=== PATIENT | female | born 1990 | race Caucasian/White ===

== ENCOUNTER 2018-08-01 11:40 | Emergency (ER) | payer SELFPAY ==
[2018-08-01 11:46] VITALS: BP 102/64; PULSE 71; RESP 20; TEMP 36.8; O2SAT 98
--- NOTE | 2018-08-01 12:42 | ED.GENADUL_ITS ---
Discharge Plan Disposition Patient Disposition: HOME Condition: Stable Discharge Details Chief Complaint: Nk/Back Pain Clinical Impression: Lumbar strain Primary Care Provider: NONE,NONE ED Provider: Loida Michelle Home Meds and New Rx's Prescriptions: No Action ibuprofen [Ibuprofen IB] 200 MG tablet 200 mg PO PRN PRNRF: 0 levonorgestrel [Mirena] 20 mcg/24 hr (5 years) Intrauterine Device 1 unit RF: 0 Medical Decision Making 28-year-old female presents with sudden onset of lower back pain after coughing prior to arrival. No cauda equina symptoms. No focal deficits on exam. Vitals within normal limits. Patient appears nontoxic and in no acute distress. She does appear uncomfortable with walking but otherwise has a normal gait. She has not taken anything for pain. test negative. Will give a dose of Toradol IM and Valium p.o. I discussed with patient that as she has no focal deficits, no cauda equina symptoms, and no fall directly onto her back, I do not see any indication for acute imaging at this time and she is agreeable. 1340 --patient feels better after meds and is requesting to go home. She is still complaining of some pain with movement. Will send home with 2 tabs of Valium. She is instructed to alternate ice and heat, take ibuprofen every 6 hours and alternate with Tylenol. She is requesting a work note for today. She was instructed to return with any worsening or new concerning symptoms. She is instructed to follow-up with her primary care doctor in 1 week. HPI General Mode of arrival: ambulatory . Date/Time Provider Initiated Documentation: 08/01/18 12:10 . Limitations to Documentation: no limitations . Information obtained by: patient . HPI Narrative: Patient is a 28-year-old female with previous history of lumbar disc herniation who presents for lower back pain that started after coughing once today. Patient states the pain is in her middle lower back and is worse with movement and walking. She denies leg pain, leg numbness, leg weakness, saddle anesthesia, urinary or fecal incontinence, or abdominal pain. She has not taken any medication for pain. Past medical history: Lumbar disc herniation Surgical history: None Social history: Vapor, occasional alcohol, occasional marijuana Medications: Mirena Allergies: None PCP: None LMP yesterday Related Data Home Medications Medication Instructions Recorded Confirmed ibuprofen [Ibuprofen IB] 200 mg PO PRN PRN 02/21/17 08/01/18 levonorgestrel [Mirena] 1 unit 08/01/18 Allergies Allergy/AdvReac Type Severity Reaction Status Date / Time No Known Allergies Allergy Unverified 08/01/18 11:48 General Stated Complaint: Nk/Back Pain KATYH: 3 Review of Systems Review of Systems All systems reviewed & are unremarkable except as noted in HPI and below PFSH Social History Smoking/Tobacco Use Status: Current every day Exam Const General: cooperative and healthy appearing Orientation: alert and awake [facility] Head: normal to inspection Ears: hearing grossly normal bilaterally and external ears normal General nose exam: external nose normal Face and sinus: normal facial exam Eyes General: appearance normal, both eyes and all related structures Eyelids: eyelids normal Neck Neck: normal visual inspection Chest Chest: normal inspection of the chest Resp Effort & Inspection: normal respiratory effort and able to speak in complete sentences Auscultation: clear to auscultation bilaterally Cardio Rate: regular rate Rhythm: regular rhythm GI Inspection: normal to inspection Palpation: soft, not firm, no guarding, no hepatosplenomegaly, no masses and nontender Auscultation: normal bowel sounds Back/Spine/Pelvis Back: no CVA tenderness Cervical Spine: No cervical spinal tenderness Thoracic/Lumbar Spine: No thoracic spinal tenderness and No lumbar spinal tenderness Skin General skin exam: no rashes or lesions noted Neuro General: alert and awake Cognition: normal cognition Speech: speech normal Gait: other Motor: muscle tone normal throughout and strength 5/5 throughout Sensory Exam: no sensory deficits noted DTR's: Rt Patellar: 1+, Lt Patellar: 1+, Rt Ankle: 1+ and Lt Ankle: 1+ Plantar Reflexes: Equivocal: bilateral Extrem General: normal to inspection, full ROM and normal capillary refill Other: Straight leg raise negative bilaterally. Bilateral DP/PT pulses intact Psych Appearance: grossly normal Mental Status: mental status grossly normal Speech and Movement: speech and movement normal Affect: normal affect Thought Process: normal Course Vital Signs Temperature 98.2 F 08/01/18 11:46 Pulse 71 08/01/18 11:46 Respiratory Rate 20 08/01/18 11:46 Blood Pressure 102/64 08/01/18 11:46 Pulse Oximetry 98 08/01/18 11:46 Temperature 98.2 F 08/01/18 11:46 Temperature Source Temporal Artery Scan 08/01/18 11:46 Pulse 71 08/01/18 11:46 Respiratory Rate 20 08/01/18 11:46 Respiratory Effort Non-Labored 08/01/18 11:48 Blood Pressure 102/64 08/01/18 11:46 Pulse Oximetry 98 08/01/18 11:46 Oxygen Delivery Method Room Air 08/01/18 11:46 Oxygen Flow Rate 0 08/01/18 11:46 Pain Level 10 08/01/18 11:48
[2018-08-01] MEDS: Ketorolac 60 MG/2 ML VIAL IM (12:59)
[2018-08-01] MEDS: Diazepam 5 MG TAB PO ×2 (12:59→13:51)
[2018-08-01 13:51] VITALS: BP 102/64; PULSE 71; RESP 20; TEMP 36.8; O2SAT 98
== END 2018-08-01 13:51 | disposition home or self-care (01) ==
PROVIDERS: Emergency Provider Physician Assistant
DX: S39.012A Strain of muscle, fascia and tendon of lower back, initial encounter (principal); X50.9XXA Other and unspecified overexertion or strenuous movements or postures, initial encounter
CPT/HCPCS: 81025; 96372; 99284; J1885

== ENCOUNTER 2018-08-03 13:56 | Emergency (ER) | payer SELFPAY ==
[2018-08-03 14:12] VITALS: BP 109/61; PULSE 66; RESP 14; TEMP 37; O2SAT 96
--- NOTE | 2018-08-03 14:53 | W.ED.GENAD ---
Discharge Plan Disposition Patient Disposition: HOME Condition: Improving Discharge Details Chief Complaint: Nk/Back Pain Clinical Impression: Lumbago Primary Care Provider: NONE,NONE ED Provider: Jean Mcneil Home Meds and New Rx's Prescriptions: New methocarbamol 500 mg tablet 500 - 1,000 mg PO Q6H PRN (Reason: Back pain or spasm) Qty: 14 RF: 0 prednisone 20 mg tablet 40 mg PO DAILY 5 Days Qty: 10 RF: 0 Continue acetaminophen [Tylenol Extra Strength] 500 mg Tablet 2,000 mg PO Q6H PRNRF: 0 ibuprofen [Ibuprofen IB] 200 MG tablet 200 mg PO PRN PRNRF: 0 levonorgestrel [Mirena] 20 mcg/24 hr (5 years) Intrauterine Device 1 unit RF: 0 Discharge Instructions Instructions: Low Back Strain (ED) Additional Instructions: Continue medications as you have been. Return tomorrow for 1pm MRI and then to be seen in the ED. Return sooner for any acute concerns. Prednisone as prescribed. Methocarbamol as needed. Medical Decision Making 28yof ambulatory to ED with persistent back pain since coughing on 08/01. She has question mild weakness but no objective findings on my exam. No fever, no drug use. DDx includes disc bulge, exacerbation of chronic lumbar pain. I have been able to obtain MRI for tomorrow. Discussed with patient and will treat with steroid burst and increased analgesia. She will return sooner prn. Consider PT referral if MRI negative. PMD planning in progress. HPI General Mode of arrival: ambulatory. Date/Time Provider Initiated Documentation: 08/03/18 14:45. Limitations to Documentation: no limitations. Information obtained by: patient. History of Present Illness described as moderate, Quality is described as aching, and is localized to the back. Patient started experiencing this day(s) and it has been constant. Rest improves symptom(s), Movement worsens symptoms . Patient notes no other symptoms.. HPI Narrative: Back pain since 08/01. Atraumatic. Ambulatory without weakness or numbness. Mini improved with Valium and NSAIDS. Denies fever, fall, injury. Related Data Home Medications Medication Instructions Recorded Confirmed ibuprofen [Ibuprofen IB] 200 mg PO PRN PRN 02/21/17 08/03/18 levonorgestrel [Mirena] 1 unit 08/01/18 acetaminophen [Tylenol Extra 2,000 mg PO Q6H PRN 08/03/18 08/03/18 Strength] methocarbamol 500 - 1,000 mg PO Q6H PRN #14 tab 08/03/18 prednisone 40 mg PO DAILY 5 Days #10 tab 08/03/18 Previous Rx's Medication Instructions Recorded methocarbamol 500 - 1,000 mg PO Q6H PRN #14 tab 08/03/18 prednisone 40 mg PO DAILY 5 Days #10 tab 08/03/18 Allergies Allergy/AdvReac Type Severity Reaction Status Date / Time No Known Allergies Allergy Unverified 08/03/18 14:17 General Stated Complaint: Nk/Back Pain KATHY: 4 Review of Systems Review of Systems 8 systems reviewed and otherwise neg [facility] Social History Smoking/Tobacco Use Status: Current every day Exam Const General: cooperative and comfortable Eyes General: appearance normal, both eyes and all related structures Conjunctivae: conjunctivae normal Chest Chest: normal palpation of entire chest wall and no tenderness Resp Effort & Inspection: normal respiratory effort and able to speak in complete sentences Cardio Rate: regular rate Rhythm: regular rhythm GI Palpation: soft and no hepatosplenomegaly Back/Spine/Pelvis Back: no CVA tenderness, No mass, No erythema, No warmth, No sacral edema and back tenderness (Lower midline tenderness without bony focality, step off. ) Neuro General: alert and oriented x3 Sensory Exam: no sensory deficits noted and other (normal sensation throughout including saddle distn' 1+ patella reflex bilateral. Motor 5/5, patient able to lift each leg independtly against gravity but liited by pain.) Course Vital Signs Temperature 37.0 C 08/03/18 14:12 Pulse 66 08/03/18 14:12 Respiratory Rate 14 08/03/18 14:12 Blood Pressure 109/61 08/03/18 14:12 Pulse Oximetry 96 08/03/18 14:12 Temperature 37.0 C 08/03/18 14:12 Temperature Source Temporal Artery Scan 08/03/18 14:12 Pulse 66 08/03/18 14:12 Respiratory Rate 14 08/03/18 14:12 Respiratory Effort Non-Labored 08/03/18 14:15 Blood Pressure 109/61 08/03/18 14:12 Pulse Oximetry 96 08/03/18 14:12 Oxygen Delivery Method Room Air 08/03/18 14:12 Oxygen Flow Rate 0 08/03/18 14:12 Pain Level 8 08/03/18 14:18
--- NOTE | 2018-08-03 14:57 | ED.GENADUL_ITS ---
Discharge Plan Disposition Patient Disposition: HOME Condition: Improving Discharge Details Chief Complaint: Nk/Back Pain Clinical Impression: Lumbago Primary Care Provider: NONE,NONE ED Provider: Jean Mcneil Home Meds and New Rx's Prescriptions: New methocarbamol 500 mg tablet 500 - 1,000 mg PO Q6H PRN (Reason: Back pain or spasm) Qty: 14 RF: 0 prednisone 20 mg tablet 40 mg PO DAILY 5 Days Qty: 10 RF: 0 Continue acetaminophen [Tylenol Extra Strength] 500 mg Tablet 2,000 mg PO Q6H PRNRF: 0 ibuprofen [Ibuprofen IB] 200 MG tablet 200 mg PO PRN PRNRF: 0 levonorgestrel [Mirena] 20 mcg/24 hr (5 years) Intrauterine Device 1 unit RF: 0 Discharge Instructions Instructions: Low Back Strain (ED) Additional Instructions: Continue medications as you have been. Return tomorrow for 1pm MRI and then to be seen in the ED. Return sooner for any acute concerns. Prednisone as prescribed. Methocarbamol as needed. Medical Decision Making 28yof ambulatory to ED with persistent back pain since coughing on 08/01. She has question mild weakness but no objective findings on my exam. No fever, no drug use. DDx includes disc bulge, exacerbation of chronic lumbar pain. I have been able to obtain MRI for tomorrow. Discussed with patient and will treat with steroid burst and increased analgesia. She will return sooner prn. Consider PT referral if MRI negative. PMD planning in progress. HPI General Mode of arrival: ambulatory . Date/Time Provider Initiated Documentation: 08/03/18 14:45 . Limitations to Documentation: no limitations . Information obtained by: patient . History of Present Illness described as moderate, Quality is described as aching, and is localized to the back. Patient started experiencing this day(s) and it has been constant. Rest improves symptom(s), Movement worsens symptoms . Patient notes no other symptoms.. HPI Narrative: Back pain since 08/01. Atraumatic. Ambulatory without weakness or numbness. Mini improved with Valium and NSAIDS. Denies fever, fall, injury. Related Data Home Medications Medication Instructions Recorded Confirmed ibuprofen [Ibuprofen IB] 200 mg PO PRN PRN 02/21/17 08/03/18 levonorgestrel [Mirena] 1 unit 08/01/18 acetaminophen [Tylenol Extra 2,000 mg PO Q6H PRN 08/03/18 08/03/18 Strength] methocarbamol 500 - 1,000 mg PO Q6H PRN #14 tab 08/03/18 prednisone 40 mg PO DAILY 5 Days #10 tab 08/03/18 Previous Rx's Medication Instructions Recorded methocarbamol 500 - 1,000 mg PO Q6H PRN #14 tab 08/03/18 prednisone 40 mg PO DAILY 5 Days #10 tab 08/03/18 Allergies Allergy/AdvReac Type Severity Reaction Status Date / Time No Known Allergies Allergy Unverified 08/03/18 14:17 General Stated Complaint: Nk/Back Pain KATHY: 4 Review of Systems Review of Systems 8 systems reviewed and otherwise neg [facility] Social History Smoking/Tobacco Use Status: Current every day Exam Const General: cooperative and comfortable Eyes General: appearance normal, both eyes and all related structures Conjunctivae: conjunctivae normal Chest Chest: normal palpation of entire chest wall and no tenderness Resp Effort & Inspection: normal respiratory effort and able to speak in complete sentences Cardio Rate: regular rate Rhythm: regular rhythm GI Palpation: soft and no hepatosplenomegaly Back/Spine/Pelvis Back: no CVA tenderness, No mass, No erythema, No warmth, No sacral edema and back tenderness (Lower midline tenderness without bony focality, step off. ) Neuro General: alert and oriented x3 Sensory Exam: no sensory deficits noted and other (normal sensation throughout including saddle distn' 1+ patella reflex bilateral. Motor 5/5, patient able to lift each leg independtly against gravity but liited by pain.) Course Vital Signs Temperature 37.0 C 08/03/18 14:12 Pulse 66 08/03/18 14:12 Respiratory Rate 14 08/03/18 14:12 Blood Pressure 109/61 08/03/18 14:12 Pulse Oximetry 96 08/03/18 14:12 Temperature 37.0 C 08/03/18 14:12 Temperature Source Temporal Artery Scan 08/03/18 14:12 Pulse 66 08/03/18 14:12 Respiratory Rate 14 08/03/18 14:12 Respiratory Effort Non-Labored 08/03/18 14:15 Blood Pressure 109/61 08/03/18 14:12 Pulse Oximetry 96 08/03/18 14:12 Oxygen Delivery Method Room Air 08/03/18 14:12 Oxygen Flow Rate 0 08/03/18 14:12 Pain Level 8 08/03/18 14:18
[2018-08-03] MEDS: Ketorolac 60 MG/2 ML VIAL IM (15:24)
[2018-08-03] MEDS: predniSONE 20 MG TAB 60 MG PO (15:24)
[2018-08-03 15:52] VITALS: BP 109/61; PULSE 66; RESP 14; TEMP 37; O2SAT 96
== END 2018-08-03 15:52 | disposition home or self-care (01) ==
PROVIDERS: Emergency Provider Emergency Medicine
DX: M54.5 Low back pain (principal)
CPT/HCPCS: 96372; 99284; 99283; J1885; J7512

== ENCOUNTER 2018-08-04 01:21 | Outpatient (CLI) | payer SELFPAY ==
--- NOTE | 2018-08-04 13:35 | DI.MRI_ITS ---
SYMPTOMS/DIAGNOSIS: WORSENING LOW BACK PAIN, WEAKNESS MRI OF THE LUMBAR SPINE: Routine noncontrast examination. Comparison CT scan is 02/21/17. The conus medullaris has a normal appearance and location. At L 5 - S 1 there is normal disc signal. No focal disc herniation, central spinal canal or neural foraminal stenosis is seen. At L 4 - 5 there is a small right paracentral annular tear. No nerve root compression is seen. No central spinal canal or neural foraminal stenosis is present. At L 3 - 4 there is disc desiccation there is a small central disc herniation. No nerve root compression is seen. There is very mild narrowing of the AP diameter of the spinal canal. No neural foraminal stenosis is seen. Mild degenerative endplate signal changes are present. At L 2 - 3 and L 1 - 2 there is normal disc signal. No focal disc herniation, central spinal canal or neural foraminal stenosis is seen at these levels. Apart from the degenerative endplate signal changes the marrow signal is within normal limits. No evidence of a soft tissue mass is appreciated. IMPRESSION: 1. Degenerative disc disease at L 3 - 4 with a small central disc herniation. No nerve root compression is seen. There is mild narrowing of the AP diameter of the spinal canal at this level. 2. Small right paracentral annular tear at L 4 - 5. No nerve root compression or central spinal canal stenosis is present. These findings were discussed with the emergency department on the date of the examination.
== END 2018-08-04 01:41 ==
PROVIDERS: Visit Provider Emergency Medicine
DX: M54.5 Low back pain (principal); R29.898 Other symptoms and signs involving the musculoskeletal system; M51.26 Other intervertebral disc displacement, lumbar region
CPT/HCPCS: 72148

== ENCOUNTER 2018-08-04 15:13 | Emergency (ER) | payer SELFPAY ==
[2018-08-04 15:30] VITALS: BP 117/67; PULSE 59; RESP 12; TEMP 36.7; O2SAT 100
--- NOTE | 2018-08-04 15:44 | W.ED.GENAD ---
Discharge Plan Disposition Patient Disposition: HOME Discharge Details Chief Complaint: Recheck Clinical Impression: Low back pain, Lumbar disc herniation, Annular disc tear ED Provider: Karlos Toure Home Meds and New Rx's Prescriptions: Continue acetaminophen [Tylenol Extra Strength] 500 mg Tablet 2,000 mg PO Q6H PRNRF: 0 methocarbamol 500 mg tablet 500 - 1,000 mg PO Q6H PRN (Reason: Back pain or spasm) Qty: 14 RF: 0 prednisone 20 mg tablet 40 mg PO DAILY 5 Days Qty: 10 RF: 0 ibuprofen [Ibuprofen IB] 200 MG tablet 200 mg PO PRN PRNRF: 0 levonorgestrel [Mirena] 20 mcg/24 hr (5 years) Intrauterine Device 1 unit RF: 0 Discharge Instructions Instructions: Lumbar Disc Herniation (ED) Additional Instructions: If pain persists over the next couple days, please follow-up with orthopedics. Please contact your primary care physician to arrange follow-up. Return to the ER for any worsening or new concerning symptoms. Referrals: Asher Shrestha MD [ [facility] STAFF PHYSICIAN] - Medical Decision Making 28-year-old female here with low back pain, seen here yesterday in the emergency department and discharged to have an outpatient MRI performed, returns for results. Patient has been taking medications as prescribe and notes that pain has improved with medications prescribed yesterday. She denies recurrence of any weakness or numbness. No bowel or bladder does feel Radiologist about the MRI and he notes degenerative disc disease at L3-4 with a small central disc herniation. No nerve root compression is seen. There is mild narrowing of the AP diameter of the spinal canal at this level. Small right paracentral annular tear at L4-5. No nerve root compression or central spinal stenosis is present. Results were conveyed to the patient. Discharge instructions provided yesterday were reviewed. Patient was specifically instructed to not do any heavy lifting, bed twist or perform any other activities that worsen her pain. Patient was instructed to continue taking medication as prescribed and to follow-up with payment specialist should pain persist over the next few days. HPI General Date/Time Provider Initiated Documentation: 08/04/18 15:28. HPI Narrative: Patient seen here in the emerge department yesterday for back pain. She was discharged home with plan for MRI today because MRI was not available yesterday after hours. She is here for follow-up of her MRI that was performed today. She does note that her pain has improved and she has no numbness or weakness or bowel or bladder dysfunction. Related Data Home Medications Medication Instructions Recorded Confirmed ibuprofen [Ibuprofen IB] 200 mg PO PRN PRN 02/21/17 08/03/18 levonorgestrel [Mirena] 1 unit 08/01/18 acetaminophen [Tylenol Extra 2,000 mg PO Q6H PRN 08/03/18 08/03/18 Strength] methocarbamol 500 - 1,000 mg PO Q6H PRN #14 tab 08/03/18 prednisone 40 mg PO DAILY 5 Days #10 tab 08/03/18 Previous Rx's Medication Instructions Recorded methocarbamol 500 - 1,000 mg PO Q6H PRN #14 tab 08/03/18 prednisone 40 mg PO DAILY 5 Days #10 tab 08/03/18 Allergies Allergy/AdvReac Type Severity Reaction Status Date / Time No Known Allergies Allergy Unverified 08/03/18 14:17 General Stated Complaint: Recheck KATHY: 4 Review of Systems Review of Systems See HPI Exam Const General: healthy appearing, comfortable and no acute distress Orientation: alert Course Vital Signs Temperature 36.7 C 08/04/18 15:30 Pulse 59 L 08/04/18 15:30 Respiratory Rate 12 08/04/18 15:30 Blood Pressure 117/67 08/04/18 15:30 Pulse Oximetry 100 08/04/18 15:30 Temperature 36.7 C 08/04/18 15:30 Temperature Source Temporal Artery Scan 08/04/18 15:30 Pulse 59 L 08/04/18 15:30 Respiratory Rate 12 08/04/18 15:30 Respiratory Effort Non-Labored 08/04/18 15:31 Blood Pressure 117/67 08/04/18 15:30 Pulse Oximetry 100 08/04/18 15:30 Pain Level 6 08/04/18 15:30
--- NOTE | 2018-08-04 15:48 | ED.GENADUL_ITS ---
Discharge Plan Disposition Patient Disposition: HOME Discharge Details Chief Complaint: Recheck Clinical Impression: Low back pain, Lumbar disc herniation, Annular disc tear ED Provider: Karlos Toure Home Meds and New Rx's Prescriptions: Continue acetaminophen [Tylenol Extra Strength] 500 mg Tablet 2,000 mg PO Q6H PRNRF: 0 methocarbamol 500 mg tablet 500 - 1,000 mg PO Q6H PRN (Reason: Back pain or spasm) Qty: 14 RF: 0 prednisone 20 mg tablet 40 mg PO DAILY 5 Days Qty: 10 RF: 0 ibuprofen [Ibuprofen IB] 200 MG tablet 200 mg PO PRN PRNRF: 0 levonorgestrel [Mirena] 20 mcg/24 hr (5 years) Intrauterine Device 1 unit RF: 0 Discharge Instructions Instructions: Lumbar Disc Herniation (ED) Additional Instructions: If pain persists over the next couple days, please follow-up with orthopedics. Please contact your primary care physician to arrange follow-up. Return to the ER for any worsening or new concerning symptoms. Referrals: Asher Shrestha MD [ [facility] STAFF PHYSICIAN] - Medical Decision Making 28-year-old female here with low back pain, seen here yesterday in the emergency department and discharged to have an outpatient MRI performed, returns for results. Patient has been taking medications as prescribe and notes that pain has improved with medications prescribed yesterday. She denies recurrence of any weakness or numbness. No bowel or bladder does feel Radiologist about the MRI and he notes degenerative disc disease at L3-4 with a small central disc herniation. No nerve root compression is seen. There is mild narrowing of the AP diameter of the spinal canal at this level. Small right paracentral annular tear at L4-5. No nerve root compression or central spinal stenosis is present. Results were conveyed to the patient. Discharge instructions provided yesterday were reviewed. Patient was specifically instructed to not do any heavy lifting, bed twist or perform any other activities that worsen her pain. Patient was instructed to continue taking medication as prescribed and to follow -up with personnel specialist should pain persist over the next few days. HPI General Date/Time Provider Initiated Documentation: 08/04/18 15:28 . HPI Narrative: Patient seen here in the emerge department yesterday for back pain. She was discharged home with plan for MRI today because MRI was not available yesterday after hours. She is here for follow-up of her MRI that was performed today. She does note that her pain has improved and she has no numbness or weakness or bowel or bladder dysfunction. Related Data Home Medications Medication Instructions Recorded Confirmed ibuprofen [Ibuprofen IB] 200 mg PO PRN PRN 02/21/17 08/03/18 levonorgestrel [Mirena] 1 unit 08/01/18 acetaminophen [Tylenol Extra 2,000 mg PO Q6H PRN 08/03/18 08/03/18 Strength] methocarbamol 500 - 1,000 mg PO Q6H PRN #14 tab 08/03/18 prednisone 40 mg PO DAILY 5 Days #10 tab 08/03/18 Previous Rx's Medication Instructions Recorded methocarbamol 500 - 1,000 mg PO Q6H PRN #14 tab 08/03/18 prednisone 40 mg PO DAILY 5 Days #10 tab 08/03/18 Allergies Allergy/AdvReac Type Severity Reaction Status Date / Time No Known Allergies Allergy Unverified 08/03/18 14:17 General Stated Complaint: Recheck KATHY: 4 Review of Systems Review of Systems See HPI Exam Const General: healthy appearing, comfortable and no acute distress Orientation: alert Course Vital Signs Temperature 36.7 C 08/04/18 15:30 Pulse 59 L 08/04/18 15:30 Respiratory Rate 12 08/04/18 15:30 Blood Pressure 117/67 08/04/18 15:30 Pulse Oximetry 100 08/04/18 15:30 Temperature 36.7 C 08/04/18 15:30 Temperature Source Temporal Artery Scan 08/04/18 15:30 Pulse 59 L 08/04/18 15:30 Respiratory Rate 12 08/04/18 15:30 Respiratory Effort Non-Labored 08/04/18 15:31 Blood Pressure 117/67 08/04/18 15:30 Pulse Oximetry 100 08/04/18 15:30 Pain Level 6 08/04/18 15:30
== END 2018-08-04 15:57 | disposition home or self-care (01) ==
LOC: ER 15:53
PROVIDERS: Emergency Provider Student in an Organized Health Care Education/Training Program
DX: M51.26 Other intervertebral disc displacement, lumbar region (principal); M51.36 Other intervertebral disc degeneration, lumbar region

== ENCOUNTER 2020-04-14 10:09 | Emergency (ER) | payer MEDICAID, SELFPAY ==
[2020-04-14 10:15] VITALS: BP 116/66; PULSE 73; RESP 16; TEMP 36.4; O2SAT 97
--- NOTE | 2020-04-14 10:21 | ED.GENADUL_ITS ---
Discharge Plan Disposition Patient Disposition: HOME Condition: Stable Discharge Details Chief Complaint: GenMedical Clinical Impression: Hemorrhoids Primary Care Provider: None,None ED Provider: Leonard Burgos Home Meds and New Rx's Prescriptions: New docusate sodium 100 mg tablet 100 mg PO BID Qty: 30 RF: 0 lidocaine 5 % ointment 1 applic TP TID PRN (Reason: pain) Qty: 30 RF: 0 Continued acetaminophen [Tylenol Extra Strength] 500 mg Tablet 2,000 mg PO Q6H PRNRF: 0 ibuprofen [Ibuprofen IB] 200 MG tablet 200 mg PO PRN PRNRF: 0 Discharge Instructions Instructions: Hemorrhoids (ED), Sitz Bath (DC) Additional Instructions: if you're still symptomatic after a week follow up with your primary care provider return to the emergency department for fevers, abdominal pain, vomit, or uncontrolled bleeding Stand Alone Forms: Work Release Medical Decision Making 30 yo female comes in with rectal pain for several days and pain with wiping and some blood on the toilet paper. No vomit, abdominal pain or fevers. Has no abdominal tenderness on exam. 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 Will have her start sitz baths, lidocaine topically and stool softeners. ADvised f/u with pcp if not better within a week and return precautions given Differential Diagnosis Differential Diagnosis: hemorrhoid, fissure HPI General Mode of arrival: ambulatory . Date/Time Provider Initiated Documentation: 04/14/20 10:10 . Limitations to Documentation: no limitations . Information obtained by: patient . History of Present Illness 30 year old F presents to the emergency department with the chief complaint of rectal pain, described as moderate, and it has been constant. No relieving factors improve symptom(s), No exacerbating factors reported . Patient did receive the following treatments prior to arrival, none Related Data Home Medications Medication Instructions Recorded Confirmed ibuprofen [Ibuprofen IB] 200 mg PO PRN PRN 02/21/17 04/14/20 acetaminophen [Tylenol Extra 2,000 mg PO Q6H PRN 08/03/18 04/14/20 Strength] docusate sodium 100 mg PO BID #30 tab 04/14/20 lidocaine 1 applic TP TID PRN #30 gm 04/14/20 Previous Rx's Medication Instructions Recorded docusate sodium 100 mg PO BID #30 tab 04/14/20 lidocaine 1 applic TP TID PRN #30 gm 04/14/20 Allergies Allergy/AdvReac Type Severity Reaction Status Date / Time No Known Allergies Allergy Unverified 04/14/20 10:19 General Stated Complaint: GenMedical KATHY: 3 Review of Systems All systems reviewed & are unremarkable except as noted in HPI and below Constitutional Constitutional: Denies chills, Denies fever(s) and Denies weakness Cardiovascular Cardiovascular: Denies chest pain and Denies dyspnea Respiratory Respiratory: Denies cough and Denies dyspnea Gastrointestinal Gastrointestinal: Denies abdominal pain, Denies nausea and Denies vomiting Musculoskeletal Musculoskeletal: Denies joint swelling Neurologic Neurologic: Denies weakness [facility] Social History Smoking/Tobacco Use Status: Current every day Tobacco Type: cigarettes Years smoked: 12 and e-cigarettes Alcohol Intake: current Alcohol Intake frequency: holidays/special occasions only Alcohol type: beer Drug use: Never Substance use type: marijuana Do you feel safe at home: Yes Do you feel safe in your relationship?: Yes Exam Const General: no acute distress Orientation: alert HENMT Head: normal to inspection Ears: external ears normal General nose exam: external nose normal Mouth: moist mucous membranes Eyes General: appearance normal, both eyes and all related structures Neck Neck: normal visual inspection Resp Effort & Inspection: normal respiratory effort and able to speak in complete sentences Cardio Rate: regular rate GI Palpation: soft and nontender Skin General skin exam: no rashes or lesions noted Neuro General: patient alert and patient oriented x3 Extrem General: normal to inspection Psych Mental Status: mental status grossly normal Course Vital Signs Vital signs: Vital Signs Temperature 36.4 C L 04/14/20 10:15 Pulse 73 04/14/20 10:15 Respiratory Rate 16 04/14/20 10:15 Blood Pressure 116/66 04/14/20 10:15 Pulse Oximetry 97 04/14/20 10:15 Temperature 36.4 C L 04/14/20 10:15 Temperature Source Tympanic 04/14/20 10:15 Pulse 73 04/14/20 10:15 Respiratory Rate 16 04/14/20 10:15 Respiratory Effort Non-Labored 04/14/20 10:17 Blood Pressure 116/66 04/14/20 10:15 Blood Pressure Position Sitting 04/14/20 10:15 Pulse Oximetry 97 04/14/20 10:15 Oxygen Delivery Method Room Air 04/14/20 10:15 Oxygen Flow Rate 0 04/14/20 10:15 Pain Level 10 04/14/20 10:15
[2020-04-14 10:28] VITALS: RESP 14
== END 2020-04-14 10:42 | disposition home or self-care (01) ==
PROVIDERS: Emergency Provider Emergency Medicine
DX: K64.4 Residual hemorrhoidal skin tags (principal)
CPT/HCPCS: 99283

== ENCOUNTER 2020-07-27 16:26 | Outpatient (CLI) | payer MEDICAID, SELFPAY ==
[2020-07-27 16:53] LABS: Abs Immature Grans 0.04 10^3/uL (0.0-0.06); Absolute Basophil Count 0.03 10^3/uL (0.0-0.2); Absolute Eosinophil Count 0.21 10^3/uL (0.0-0.7); Absolute Lymphocyte Count 2.83 10^3/uL (1.2-3.4); Absolute Neutrophil Count 7.28 10^3/uL (1.2-6.7); Basophils % 0.3; Eosinophils % 1.9; HCT 35.2 % (36.0-46.0); Immature Grans % 0.4; MCH 28.9 pg (27.0-33.0); MCHC 34.1 % (32.0-36.0); MCV 84.8 fL (80-95); MPV 10.8 fL (8.0-11.0); Neutrophils % 64.4; Nucleated RBC 0 %; Platelet Count 207 10^3/uL (130-400); RBC 4.15 10^6/uL (3.93-5.22); RDW 11.9 % (11.7-14.6); RDW-SD 36.5 fL
[2020-07-27 17:06] LABS: Glucose,1 Hr (Glucola) 91 mg/dL (80-140)
[2020-07-27 17:43] LABS: *AMPHETAMINES SCREEN URINE Negative (Negative); *BARBITURATES SCREEN URINE Negative (Negative); *BENZODIAZEPINES SCREEN URINE Negative (Negative); Cannabinoids THC POSITIVE (Negative); Cocaine Screen,Urine Negative (Negative); METHADONE URINE SCREEN Negative (Negative); OPIATES URINE SCREEN Negative (Negative)
[2020-07-27 17:50] LABS: Tricyclic Antidepressants Negative (Negative)
[2020-07-27 17:52] LABS: TSH (W/Ref FT4) 6.17 uIU/mL (0.36-3.74)
[2020-07-30 13:50] LABS: Syphilis Total Ab w/Reflex Nonreactive (Nonreactive)
[2020-07-31 10:31] LABS: Varicella IgG Antibody Positive (See Note)
[2020-07-31 10:32] LABS: Hepatitis B Surface Ag Negative (Negative)
[2020-07-31 10:34] LABS: Rubella IgG Ab (UVM) Positive (See Note)
[2020-07-31 11:10] LABS: HIV-1/2 Ag & Ab Screen Negative (Negative)
[2020-07-31 11:26] LABS: Hepatitis C Ab w Rflx HCV PCR Negative (Negative)
[2020-07-31 14:56] LABS: Chlamydia Result Negative (Negative); GC Result Negative (Negative)
[2020-08-03 11:59] LABS: Buprenorphine Negative; Norbuprenorphine Negative
[2020-08-04 15:57] LABS: Result Summary NEGATIVE; Specimen WB Whole Blood
== END 2020-07-27 16:46 ==
PROVIDERS: Visit Provider Advanced Practice Midwife
DX: Z34.91 Encounter for supervision of normal pregnancy, unspecified, first trimester (principal); Z11.4 Encounter for screening for human immunodeficiency virus [HIV]; Z11.59 Encounter for screening for other viral diseases; Z01.84 Encounter for antibody response examination; Z11.3 Encounter for screening for infections with a predominantly sexual mode of transmission
CPT/HCPCS: 36415; 80307; 82950; 86787; 86803; 86850; 86900; 86901; 87340; 87389; 87491; 87591; 81220; 84439; 84443; 85025; 86762; 86780; 87086

== ENCOUNTER 2020-07-31 01:22 | Outpatient (CLI) | payer MEDICAID, SELFPAY ==
[2020-07-31 14:40] LABS: Kit/Specimen SENT
== END 2020-07-31 01:42 ==
PROVIDERS: Visit Provider Advanced Practice Midwife
DX: Z34.91 Encounter for supervision of normal pregnancy, unspecified, first trimester (principal); Z36.89 Encounter for other specified antenatal screening

== ENCOUNTER 2020-09-18 01:29 | Outpatient (CLI) | payer MEDICAID, SELFPAY ==
--- NOTE | 2020-09-18 08:30 | DI.US_ITS ---
EXAM: US OB 2-3 TRIMESTER CLINICAL HISTORY: routine pnc,z34.90. TECHNIQUE: Transabdominal obstetrical ultrasound performed. COMPARISON: No exams were available for comparison FINDINGS: Transabdominal obstetrical ultrasound performed. FINDINGS: Number of fetuses: One. position: Breech heart rate: 150 bpm. Placental grade: 2 Placental location: Posterior. No evidence of previa. BIOMETRIC DATA: BPD: 45 millimeters, 19+ 4 weeks HC: 168 mm, 19+ 3 weeks AC: 143 mm, 19+ 4 weeks FL: 30 mm, 19+ 3 weeks Cerebellum: 1.9 cm EFW: 296 grams 75% Composite Age: 19+ 4 weeks EDC by US: 08 February 2021 Amniotic fluid index: Amount of fluid is within normal limits. ANATOMICAL SURVEY: Four-chambered heart: Unremarkable. LVOT: Unremarkable. RVOT: Unremarkable. Left-sided stomach: Unremarkable. urinary bladder: Unremarkable. Bilateral kidneys: Unremarkable. Three-vessel cord: Unremarkable. Cord insertion: Unremarkable. Umbilical artery velocity: Unremarkable. Posterior fossa:Unremarkable. ventricles: Unremarkable. nose: Unremarkable. lips: Unremarkable. palate: Unremarkable. spine: Unremarkable. Two arms and two legs: Unremarkable. IMPRESSION: 1. Single live intrauterine gestation as above. 2. Normal anatomic survey. DATA REPOSITORY:
== END 2020-09-18 01:49 ==
PROVIDERS: Visit Provider Advanced Practice Midwife
DX: Z34.92 Encounter for supervision of normal pregnancy, unspecified, second trimester (principal); Z3A.19 19 weeks gestation of pregnancy
CPT/HCPCS: 76805

== ENCOUNTER 2020-11-10 01:39 | Outpatient (CLI) | payer MEDICAID, SELFPAY ==
[2020-11-10 08:30] LABS: Glucose,1 Hr (Glucola) 215 mg/dL (80-140)
[2020-11-10 08:35] LABS: HCT 30.3 % (36.0-46.0); HGB 10.4 g/dL (11.2-15.7); MCH 29.3 pg (27.0-33.0); MCHC 34.3 % (32.0-36.0); MCV 85.4 fL (80-95); MPV 11.1 fL (8.0-11.0); Platelet Count 190 10^3/uL (130-400); RBC 3.55 10^6/uL (3.93-5.22); RDW 11.7 % (11.7-14.6); RDW-SD 36.5 fL; WBC 9.69 10^3/uL (4.4-10.8)
[2020-11-10 09:11] LABS: *AMPHETAMINES SCREEN URINE Negative (Negative); *BARBITURATES SCREEN URINE Negative (Negative); *BENZODIAZEPINES SCREEN URINE Negative (Negative); Cannabinoids THC POSITIVE (Negative); Cocaine Screen,Urine Negative (Negative); METHADONE URINE SCREEN Negative (Negative); OPIATES URINE SCREEN Negative (Negative); Tricyclic Antidepressants Negative (Negative)
[2020-11-10 09:22] LABS: TSH (W/Ref FT4) 1.83 uIU/mL (0.36-3.74)
[2020-11-10 10:50] LABS: Hemoglobin A1C 5.3 % (<5.7)
--- NOTE | 2020-11-13 10:04 | W.DIABETESNO ---
Date of service: 11/10/20 Time of Service: 09:00 Diabetes Note NOTE: Mare was referred for medical nutrition therapy for gestational diabetes. Mare is 26 weeks with a GCT today of 215 mg. Strong family hx of Dm2, elevated BMI pre . Met with Mare in [facility] and instructed her on how to do finger sticks using glucometer and placed a CGM(afia 14). Mare instructed to do finger sticks QID and to scan CGM QID. Will return 11/17/20 to evaluate data points. Also, educated Mare on optimal diet and life style changes to manage GDM, discussed risks of poorly controlled GDM and health benefits of eating healthy, being active life long to avoid Dm2 later in life. Time Spent in Nutritional Counseling and Treatment: 30 min
[2020-11-15 16:14] LABS: Buprenorphine Negative; Norbuprenorphine Negative
--- NOTE | 2020-11-17 13:50 | W.NUTRFU ---
Date of service: 11/17/20 Time of Service: 13:51 Nutritional Follow up NOTE: Met with Mare in [facility]. She is 27 weeks and has gained appropriately (+20 lbs). Has been using a continuous glucose monitor for last 7 days along with checking BS QID. BS finger stick record provided, along with data points from down load of reader. Both reports indicate well controlled GDM. In last 7 days her average glucose has been 96 mg/dl(70-170 mg/dl), with glucose variability of 17.8%. She has had no hyperglycemic events (>180 mg/dl) and has had 2 low glucose levels (54-69mg/dl)in late afternoon. Encouraged Mare to eat on a schedule and not to go more than 6 hours between meals. 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 Overall, Mare is managing her GDM with diet and lifestyle changes. Time Spent in Nutritional Counseling and Treatment: 15
== END 2020-11-10 01:59 ==
PROVIDERS: Advanced Practice Midwife; Visit Provider Advanced Practice Midwife
DX: O24.410 Gestational diabetes mellitus in pregnancy, diet controlled (principal); O99.282 Endocrine, nutritional and metabolic diseases complicating pregnancy, second trimester; O99.322 Drug use complicating pregnancy, second trimester; F12.90 Cannabis use, unspecified, uncomplicated; Z3A.27 27 weeks gestation of pregnancy
CPT/HCPCS: 80307; 82950; 85027; 83036; 84443

== ENCOUNTER 2020-11-17 18:53 | Outpatient (REF) | payer MEDICAID, SELFPAY ==
[2020-11-17 16:36] LABS: *AMPHETAMINES SCREEN URINE Negative (Negative); *BARBITURATES SCREEN URINE Negative (Negative); *BENZODIAZEPINES SCREEN URINE Negative (Negative); Cannabinoids THC POSITIVE (Negative); Cocaine Screen,Urine Negative (Negative); METHADONE URINE SCREEN Negative (Negative); OPIATES URINE SCREEN Negative (Negative)
[2020-11-17 17:04] LABS: Tricyclic Antidepressants Negative (Negative)
[2020-11-23 13:48] LABS: Buprenorphine Negative; Norbuprenorphine Negative
== END 2020-11-17 19:13 ==
LOC: LBN 18:53
PROVIDERS: PCP Nurse Practitioner; Visit Provider Advanced Practice Midwife
DX: O99.322 Drug use complicating pregnancy, second trimester; F12.90 Cannabis use, unspecified, uncomplicated
CPT/HCPCS: 80307

== ENCOUNTER 2020-11-23 03:10 | Outpatient (CLI) | payer MEDICAID, SELFPAY ==
[2020-11-23 16:01] LABS: HCT 32.2 % (36.0-46.0); HGB 10.7 g/dL (11.2-15.7); MCH 28.8 pg (27.0-33.0); MCHC 33.2 % (32.0-36.0); MCV 86.6 fL (80-95); MPV 11.6 fL (8.0-11.0); Platelet Count 202 10^3/uL (130-400); RBC 3.72 10^6/uL (3.93-5.22); RDW 11.8 % (11.7-14.6); RDW-SD 37.2 fL; WBC 12.43 10^3/uL (4.4-10.8)
== END 2020-11-23 03:30 ==
PROVIDERS: PCP Nurse Practitioner; Visit Provider Advanced Practice Midwife
DX: Z34.93 Encounter for supervision of normal pregnancy, unspecified, third trimester (principal); Z3A.28 28 weeks gestation of pregnancy
CPT/HCPCS: 36415; 85027

== ENCOUNTER 2020-11-24 00:52 | Outpatient (CLI) | payer MEDICAID, SELFPAY ==
--- NOTE | 2020-11-24 14:30 | NS.NUTBLAN_ITS ---
Mare was referred to medical nutrition therapy for education on how to inject insulin. Ordered NPH 6 units BID. Educated Mare how to mix NPH, how to insert air into bottle and how to draw up insulin and inject. Recently ordered to start insulin to manage GDM as was having elevated fasting BS > 95mg/dl. Reviewed optimal meal plan for glycemic control and encouraged Mare to inject insulin after meals. Encouraged Mare to have 50 carbs with protein at B, L, and D and not go longer than 6 hours between meals. Reviewed benefits of insulin to growing baby. Mare is instructed to check BS QID and to use CGM. Will need to replace sensor in 1 day, Mare will have partner do this for her. Mare plans to take insulin before work after breakfast and after dinner. Mare was receptive to information. Will continue to follow weekly.
== END 2020-11-24 01:12 ==
PROVIDERS: PCP Nurse Practitioner; Visit Provider Dietitian, Registered
DX: O24.414 Gestational diabetes mellitus in pregnancy, insulin controlled (principal); Z71.3 Dietary counseling and surveillance
CPT/HCPCS: 97803

== ENCOUNTER 2020-12-22 04:00 | Outpatient (CLI) | payer MEDICAID, SELFPAY ==
--- NOTE | 2020-12-22 08:27 | DI.US_ITS ---
EXAM: US OB LUISITO WEIGHT CLINICAL HISTORY: Elevated one hour at 215,? LGA INFANT,GEST DIABETES; modified to protocol. TECHNIQUE: Transabdominal obstetrical ultrasound performed. COMPARISON: US US OB 2-3 TRIMESTER from 09/18/2020 FINDINGS:: Number of fetuses: One. position: Vertex. Placental location: Posterior. No evidence of previa. Grade 2. BIOMETRIC DATA: BPD: 84mm = 33+ 6 weeks HC: 302mm = 33+4 weeks AC: 294mm = 33+3 weeks FL: 66 mm = 33+ 6 weeks EFW: 2226 grams Gms = 72 % Composite Age: 33+5 weeks EDC: 04 February 2021 Heart Rate: 155BPM Amniotic fluid index: 20.4 cm. Amount of fluid is at the upper limits of normal.. IMPRESSION: size and weight are within the high normal range. Borderline polyhydramnios. DATA REPOSITORY:
--- NOTE | 2020-12-22 14:10 | W.DIABETESNO ---
Date of service: 12/22/20 Time of Service: 14:11 Diabetes Note NOTE: Met with Mare today at [facility]. She is 33 weeks with GDM. Total weight gain of 30 lbs, no recent weight gain. Mare is using a continuous glucose monitor and checking blood sugars BID. Fasting sugars are starting to become elevated. Had 5 fasting sugars > 95mg/dl in last week. Dr. Jauregui recommended 3 u of novolog at HS. Per CGM, has been in target range 70% with glucose variability of 29%. Meal review indicates some high sugar items in last 2 weeks but mostly well balanced meals. Mare was provided with education on how to use her insulin pens and reported that she feels comfortable injecting 3 units of novolog at bedtime. Follow up appt. next week, Mare to continue to keep blood sugar log and utilize CGM to assist her in making meal choices. Will be available prn. Time Spent in Nutritional Counseling and Treatment: 10 minutes
== END 2020-12-22 04:20 ==
PROVIDERS: PCP Nurse Practitioner; Visit Provider Obstetrics & Gynecology
DX: O24.414 Gestational diabetes mellitus in pregnancy, insulin controlled (principal); O40.3XX0 Polyhydramnios, third trimester, not applicable or unspecified; Z3A.33 33 weeks gestation of pregnancy
CPT/HCPCS: 76816

== ENCOUNTER 2020-12-26 07:52 | Outpatient (CLI) | payer MEDICAID, SELFPAY ==
[2020-12-26 16:20] VITALS: BP 134/78; PULSE 101; TEMP 36.9
[2020-12-26 16:31] VITALS: BP 134/78; PULSE 101
[2020-12-26 17:07] VITALS: BP 134/78; PULSE 101; TEMP 36.9
--- NOTE | 2020-12-26 17:07 | W.OBNST ---
Date of service: 12/26/20 Time of Service: 17:07 NST Evaluation Reason for NST Reasons for Nonstress Test: GDM- PO MEDICATION Gestational Age Gestational Age in Weeks and Days: 33 Weeks and 1Days Test and Monitor Explained Test/Monitor Explained: Test Explained, Monitor Explained and Patient Verbalized Understanding Vital Signs Blood Pressure: 134/78 Pulse: 101 Temperature: 98.4 F Urine Results Urine Protein: Negative Urine Ketones: Negative Urine Glucose: Negative Urine Blood: Negative NST Information Date on Monitor: 12/26/20 Time on Monitor: 16:26 Date off Monitor: 12/26/20 Time off Monitor: 16:53 Total Time on Monitor: 27 NST Interventions: PO Hydration NST Evaluation Patient States Movement: Present FHR Baseline: 135 Variability: Moderate 6-25 bpm Accelerations: 15x15 Decelerations: None NST Results: Reactive Note NST Note Note: Category 1 strip. NST friday with OB visit NST Reviewed and Verified by: Savana Clancy
== END 2020-12-26 17:00 | disposition home or self-care (01) ==
LOC: BCD 08:03 → OBS 16:18
PROVIDERS: PCP Nurse Practitioner; Visit Provider Obstetrics & Gynecology
DX: O24.415 Gestational diabetes mellitus in pregnancy, controlled by oral hypoglycemic drugs (principal); Z79.84 Long term (current) use of oral hypoglycemic drugs; Z3A.33 33 weeks gestation of pregnancy
CPT/HCPCS: 59025

== ENCOUNTER 2020-12-29 07:46 | Outpatient (CLI) | payer MEDICAID, SELFPAY ==
[2020-12-29 09:54] VITALS: BP 130/84; PULSE 96
[2020-12-29 10:00] VITALS: TEMP 36.7
[2020-12-29 10:02] VITALS: BP 130/84; PULSE 96; TEMP 36.7
[2020-12-29 12:41] VITALS: BP 130/84; PULSE 96; TEMP 36.7
--- NOTE | 2020-12-29 12:41 | W.OBNST ---
Date of service: 12/29/20 Time of Service: 12:41 NST Evaluation Reason for NST Reasons for Nonstress Test: GDM- PO MEDICATION and GDM-INSULIN Gestational Age Gestational Age in Weeks and Days: 33 Weeks and 4Days Test and Monitor Explained Test/Monitor Explained: Test Explained, Monitor Explained and Patient Verbalized Understanding Vital Signs Blood Pressure: 130/84 Pulse: 96 Temperature: 98.1 F Urine Results Urine Protein: Negative Urine Ketones: Negative Urine Glucose: Negative Urine Blood: Negative NST Information Time on Monitor: 09:56 Date off Monitor: 12/29/20 Time off Monitor: 10:22 NST Interventions: PO Hydration Contraction Frequency: 0 NST Evaluation Patient States Movement: Present and Decreased FHR Baseline: 135 Variability: Moderate 6-25 bpm Accelerations: 15x15 Decelerations: None NST Results: Reactive Note NST Note Note: Mare is getting twice weekly NSTs for A2GDM. Reactive. NST Reviewed and Verified by: Kerry Ann
--- NOTE | 2020-12-29 13:17 | DIABASSESS_ITS ---
Date of service: 12/29/20 Time of Service: 13:17 Diabetes Note NOTE: Met with Mare on [facility]. She is 34 weeks with GDM. She reports taking her insulin (3 u novolog HS) only some nights when I remember. Encouraged Mare to take insulin every night as several of her fasting blood sugars are > 95mg/dl. Overall, her glycemic control is excellent with only a few glycemic excurtions above 140 mg/dl after meals. Reviewed dietary logs, continues to include high sugar items such as fruit juice, encouraged sugar free options and reviewed glycemic response to simple sugars. Ambulatory glucose profile indicates in target range (63-140 mg/dl) 77% of time with no blood sugars > 180mg/dl in last 14 days. Average glucose 84mg/dl, 24.8% glucose variability in last 14 days. Time Spent in Nutritional Counseling and Treatment: 20
== END 2020-12-29 10:25 | disposition home or self-care (01) ==
LOC: BCD 07:52 → OBS 09:51
PROVIDERS: PCP Nurse Practitioner; Visit Provider Obstetrics & Gynecology
DX: O24.414 Gestational diabetes mellitus in pregnancy, insulin controlled (principal); Z79.4 Long term (current) use of insulin; Z3A.33 33 weeks gestation of pregnancy
CPT/HCPCS: 59025

== ENCOUNTER 2021-01-02 07:24 | Outpatient (CLI) | payer MEDICAID, SELFPAY ==
[2021-01-02 17:01] VITALS: BP 135/79; PULSE 83
[2021-01-02 17:04] VITALS: BP 135/79; PULSE 81; TEMP 36.7
--- NOTE | 2021-01-02 20:07 | W.OBNST ---
Date of service: 01/02/21 Time of Service: 20:08 NST Evaluation Reason for NST Reasons for Nonstress Test: GDM-INSULIN Gestational Age Gestational Age in Weeks and Days: 34 Weeks and 1Days Test and Monitor Explained Test/Monitor Explained: Test Explained, Monitor Explained and Patient Verbalized Understanding Vital Signs Blood Pressure: 135/79 Pulse: 81 Temperature: 98.1 F Urine Results Urine Protein: Negative Urine Ketones: Negative Urine Glucose: Negative Urine Blood: Negative NST Information Date on Monitor: 01/02/21 Time on Monitor: 16:23 Date off Monitor: 01/02/21 Time off Monitor: 17:02 Total Time on Monitor: 39 NST Interventions: PO Hydration Contraction Frequency: 2-6 NST Evaluation Patient States Movement: Present FHR Baseline: 125 Variability: Moderate 6-25 bpm Accelerations: 15x15 Decelerations: None NST Results: Reactive Note NST Note Note: Pt will be seen in office later this week for routine visit. NST Reviewed and Verified by: Basia Lanza
[2021-01-02 20:08] VITALS: BP 135/79; PULSE 81; TEMP 36.7
== END 2021-01-02 17:05 | disposition home or self-care (01) ==
LOC: BCD 07:26 → OBS 16:43
PROVIDERS: PCP Nurse Practitioner; Visit Provider Obstetrics & Gynecology Gynecology
DX: O24.414 Gestational diabetes mellitus in pregnancy, insulin controlled (principal); Z3A.34 34 weeks gestation of pregnancy; Z79.4 Long term (current) use of insulin
CPT/HCPCS: 59025

== ENCOUNTER 2021-01-04 09:23 | Outpatient (CLI) | payer MEDICAID, SELFPAY ==
[2021-01-05 12:53] LABS: COVID-19 RT-PCR UVMMC Result Negative (Negative)
== END 2021-01-04 09:24 | disposition home or self-care (01) ==
LOC: LBO 09:23
PROVIDERS: PCP Nurse Practitioner; Visit Provider Obstetrics & Gynecology
DX: Z20.822 Contact with and (suspected) exposure to COVID-19 (principal)
CPT/HCPCS: U0003

== ENCOUNTER 2021-01-09 06:44 | Outpatient (CLI) | payer MEDICAID, SELFPAY ==
[2021-01-09 16:30] VITALS: BP 126/82; PULSE 97; TEMP 36.6
[2021-01-09 16:36] VITALS: BP 126/82; PULSE 97
[2021-01-09 17:00] VITALS: BP 126/82; PULSE 97; TEMP 36.6
--- NOTE | 2021-01-12 09:03 | PDOC.NST_ITS ---
Date of service: 01/12/21 Time of Service: 09:03 NST Evaluation Reason for NST Reasons for Nonstress Test: GDM-INSULIN Gestational Age Gestational Age in Weeks and Days: 35 Weeks and 1Days Test and Monitor Explained Test/Monitor Explained: Test Explained, Monitor Explained and Patient Verbalized Understanding Vital Signs Blood Pressure: 126/82 Pulse: 97 Temperature: 97.8 F Urine Results Urine Protein: Negative Urine Ketones: Negative Urine Glucose: Negative Urine Blood: Negative NST Information Date on Monitor: 01/09/21 Time on Monitor: 16:33 Date off Monitor: 01/09/21 Time off Monitor: 17:01 Total Time on Monitor: 28 NST Interventions: PO Hydration Contraction Frequency: none NST Evaluation Patient States Movement: Present FHR Baseline: 130 Variability: Moderate 6-25 bpm Accelerations: 15x15 Decelerations: None NST Results: Reactive Note NST Note Note: Pt reports satisfactory glycemic control. She will bring record of fingersticks with her for next [facility] appt. NST Reviewed and Verified by: Basia Lanza
[2021-01-12 09:04] VITALS: BP 126/82; PULSE 97; TEMP 36.6
== END 2021-01-09 17:05 | disposition home or self-care (01) ==
LOC: BCD 13:44 → OBS 16:27
PROVIDERS: PCP Nurse Practitioner; Visit Provider Obstetrics & Gynecology Gynecology
DX: O24.414 Gestational diabetes mellitus in pregnancy, insulin controlled (principal); Z3A.35 35 weeks gestation of pregnancy; Z79.4 Long term (current) use of insulin
CPT/HCPCS: 59025

== ENCOUNTER 2021-01-16 07:13 | Outpatient (CLI) | payer MEDICAID, SELFPAY ==
[2021-01-16 16:31] VITALS: BP 127/80; PULSE 100; TEMP 36.7
[2021-01-16 16:32] VITALS: BP 127/80; PULSE 100
[2021-01-16 17:10] VITALS: BP 127/80; PULSE 100; TEMP 36.7
--- NOTE | 2021-01-16 17:36 | W.OBNST ---
Date of service: 01/16/21 Time of Service: 17:36 NST Evaluation Reason for NST Reasons for Nonstress Test: GDM-INSULIN Gestational Age Gestational Age in Weeks and Days: 36 Weeks and 1Days Test and Monitor Explained Test/Monitor Explained: Test Explained, Monitor Explained and Patient Verbalized Understanding Vital Signs Blood Pressure: 127/80 Pulse: 100 Temperature: 98.1 F Urine Results Urine Protein: Negative Urine Ketones: Negative Urine Glucose: Negative Urine Blood: Negative NST Information Date on Monitor: 01/16/21 Time on Monitor: 16:28 Date off Monitor: 01/16/21 Time off Monitor: 17:07 Total Time on Monitor: 39 NST Interventions: PO Hydration Contraction Frequency: 2-5 NST Evaluation Patient States Movement: Present FHR Baseline: 120 Variability: Moderate 6-25 bpm Accelerations: 15x15 Decelerations: Variable NST Results: Reactive Note NST Note Note: Reactive NST, Category 1 strip NST Reviewed and Verified by: Savana Clancy
[2021-01-16 17:37] VITALS: BP 127/80; PULSE 100; TEMP 36.7
== END 2021-01-16 17:12 | disposition home or self-care (01) ==
LOC: BCD 07:15 → OBS 16:31
PROVIDERS: PCP Nurse Practitioner; Visit Provider Obstetrics & Gynecology
DX: O24.414 Gestational diabetes mellitus in pregnancy, insulin controlled (principal); Z3A.36 36 weeks gestation of pregnancy; Z79.4 Long term (current) use of insulin
CPT/HCPCS: 59025

== ENCOUNTER 2021-01-17 01:24 | Outpatient (CLI) | payer MEDICAID, SELFPAY ==
--- NOTE | 2021-01-17 08:15 | DI.US_ITS ---
EXAM: US OB LUISITO WEIGHT CLINICAL HISTORY: Growth and LUISITO,GEST DIABETES,O24.419. TECHNIQUE: Transabdominal obstetrical ultrasound was performed. COMPARISON: US US OB LUISITO WEIGHT from 12/22/2020 FINDINGS: There is a single viable intrauterine gestation with cardiac activity identified-132 bpm The fetus is presently in cephalic position 3 vessel umbilical cord was incidentally noted. Amniotic fluid: There is a normal amount of amniotic fluid with an LUISITO of 22.0cm. Placental location: The placenta is posterior grade 2,with no evidence of placenta previa. Dating parameters place this at approximately 36 weeks and 5 days gestational age, implying RIVAS of February 09, 2021. BPD measures 36 weeks and 1 day HC measures 36 weeks and 5 days AC measures 36 weeks and 5 days FL measures 37 weeks and 0 days Estimated weight is 3010 gm-6 pounds 10 ounces Fetus is at the 64th percentile on the Hadlock scale. IMPRESSION:: Viable 3rd trimester gestation, as described above. Fetus is at the 64th percentile on the Hadlock scale. There is normal amount of amniotic fluid. DATA REPOSITORY:
== END 2021-01-17 01:44 ==
PROVIDERS: PCP Nurse Practitioner; Visit Provider Obstetrics & Gynecology
DX: O24.414 Gestational diabetes mellitus in pregnancy, insulin controlled (principal); Z3A.36 36 weeks gestation of pregnancy
CPT/HCPCS: 76816

== ENCOUNTER 2021-01-19 08:04 | Outpatient (CLI) | payer MEDICAID, SELFPAY ==
[2021-01-19 11:29] VITALS: BP 121/70; PULSE 93; TEMP 36.5
[2021-01-19 11:42] VITALS: BP 121/70; PULSE 93
--- NOTE | 2021-01-19 12:39 | W.OBNST ---
Date of service: 01/19/21 Time of Service: 12:41 NST Evaluation Reason for NST Reasons for Nonstress Test: GDM-INSULIN Gestational Age Gestational Age in Weeks and Days: 36 Weeks and 4Days Test and Monitor Explained Test/Monitor Explained: Test Explained, Monitor Explained and Patient Verbalized Understanding Vital Signs Blood Pressure: 121/70 Pulse: 93 Temperature: 97.7 F Urine Results Urine Protein: Positive Urine Ketones: Negative Urine Glucose: Negative Urine Blood: Negative NST Information Date on Monitor: 01/19/21 Time on Monitor: 11:30 Date off Monitor: 01/19/21 Time off Monitor: 12:21 Total Time on Monitor: 51 NST Interventions: PO Hydration NST Evaluation Patient States Movement: Present FHR Baseline: 125 Variability: Moderate 6-25 bpm Accelerations: 15x15 Decelerations: None NST Results: Reactive Note NST Note Note: FHT reviewed by me at the time of the visit and found to be reactive. NST Reviewed and Verified by: Kerry Ann
[2021-01-19 12:41] VITALS: BP 121/70; PULSE 93; TEMP 36.5
== END 2021-01-19 12:25 | disposition home or self-care (01) ==
LOC: BCD 08:08 → OBS 11:26
PROVIDERS: PCP Nurse Practitioner; Visit Provider Obstetrics & Gynecology
DX: O24.414 Gestational diabetes mellitus in pregnancy, insulin controlled (principal); Z79.4 Long term (current) use of insulin; Z3A.36 36 weeks gestation of pregnancy
CPT/HCPCS: 59025; 87081

== ENCOUNTER 2021-01-23 16:32 | Outpatient (CLI) | payer MEDICAID, SELFPAY ==
[2021-01-23 16:48] VITALS: BP 119/69; PULSE 87; RESP 18; TEMP 36.8
[2021-01-23 16:51] VITALS: BP 119/69; PULSE 87; TEMP 36.8
--- NOTE | 2021-01-24 18:37 | W.OBNST ---
Date of service: 01/24/21 Time of Service: 18:37 NST Evaluation Reason for NST Reasons for Nonstress Test: GDM-INSULIN Gestational Age Gestational Age in Weeks and Days: 37 Weeks and 1Days Test and Monitor Explained Test/Monitor Explained: Patient Verbalized Understanding Vital Signs Blood Pressure: 119/69 Pulse: 87 Temperature: 98.2 F Urine Results Urine Protein: Negative Urine Ketones: Negative Urine Glucose: Negative Urine Blood: Negative NST Information Date on Monitor: 01/23/21 Time on Monitor: 16:40 NST Interventions: PO Hydration and Meal Given NST Evaluation Patient States Movement: Present FHR Baseline: 140 Variability: Moderate 6-25 bpm Accelerations: 15x15 Decelerations: None NST Results: Reactive Note NST Note Note: I reviewed pt's CBGs. She is currently taking 4units of NPH at bedtime with satisfactory glycemic control. She will f/u in the office on 01/26/21. NST Reviewed and Verified by: Basia Lanza
[2021-01-24 18:38] VITALS: BP 119/69; PULSE 87; TEMP 36.8
== END 2021-01-23 17:40 | disposition home or self-care (01) ==
LOC: BCD 16:36 → OBS 16:39
PROVIDERS: PCP Nurse Practitioner; Visit Provider Obstetrics & Gynecology Gynecology
DX: O24.414 Gestational diabetes mellitus in pregnancy, insulin controlled (principal); Z3A.37 37 weeks gestation of pregnancy; Z79.4 Long term (current) use of insulin
CPT/HCPCS: 59025

== ENCOUNTER 2021-01-26 07:08 | Outpatient (CLI) | payer MEDICAID, SELFPAY ==
[2021-01-26 10:03] VITALS: BP 128/78; PULSE 85; TEMP 36.7
[2021-01-26 10:09] VITALS: BP 128/78; PULSE 85
--- NOTE | 2021-01-27 20:44 | W.OBNST ---
Date of service: 01/27/21 Time of Service: 20:45 NST Evaluation Reason for NST Reasons for Nonstress Test: GDM-INSULIN Gestational Age Gestational Age in Weeks and Days: 37 Weeks and 4Days Test and Monitor Explained Test/Monitor Explained: Test Explained, Monitor Explained and Patient Verbalized Understanding Vital Signs Blood Pressure: 128/78 Pulse: 85 Temperature: 98.1 F Urine Results Urine Protein: Negative Urine Ketones: Negative Urine Glucose: Negative Urine Blood: Negative NST Information Date on Monitor: 01/26/21 Time on Monitor: 10:03 Date off Monitor: 01/26/21 Time off Monitor: 10:23 Total Time on Monitor: 20 NST Interventions: PO Hydration NST Evaluation Patient States Movement: Present FHR Baseline: 125 Variability: Moderate 6-25 bpm Accelerations: 15x15 Decelerations: None NST Results: Reactive Note NST Note Note: I reviewed reactive NST at time of f/u office. excellent glycemic control. NST Reviewed and Verified by: Lara Lanza
[2021-01-27 20:46] VITALS: BP 128/78; PULSE 85; TEMP 36.7
== END 2021-01-26 10:25 | disposition home or self-care (01) ==
LOC: BCD 07:11 → OBS 09:56
PROVIDERS: PCP Nurse Practitioner; Visit Provider Obstetrics & Gynecology Gynecology
DX: O24.414 Gestational diabetes mellitus in pregnancy, insulin controlled (principal); Z3A.37 37 weeks gestation of pregnancy; Z79.4 Long term (current) use of insulin
CPT/HCPCS: 59025

== ENCOUNTER 2021-01-26 13:15 | Outpatient (REF) | payer MEDICAID, SELFPAY ==
[2021-01-26 14:45] LABS: *AMPHETAMINES SCREEN URINE Negative (Negative); *BARBITURATES SCREEN URINE Negative (Negative); *BENZODIAZEPINES SCREEN URINE Negative (Negative); Cannabinoids THC Positive (Negative); Cocaine Screen,Urine Negative (Negative); METHADONE URINE SCREEN Negative (Negative); OPIATES URINE SCREEN Negative (Negative)
[2021-01-26 14:53] LABS: Tricyclic Antidepressants Negative (Negative)
[2021-02-01 11:14] LABS: Buprenorphine Negative ng/mL (Cutoff: 5.0); Norbuprenorphine Negative ng/mL (Cutoff: 2.5)
== END 2021-01-26 13:16 | disposition home or self-care (01) ==
LOC: LBN 13:15
PROVIDERS: PCP Nurse Practitioner; Visit Provider Obstetrics & Gynecology Gynecology
DX: Z34.93 Encounter for supervision of normal pregnancy, unspecified, third trimester (principal); Z3A.37 37 weeks gestation of pregnancy
CPT/HCPCS: 80307

== ENCOUNTER 2021-01-30 16:17 | Outpatient (CLI) | payer MEDICAID, SELFPAY ==
[2021-01-30 16:28] VITALS: BP 122/77; PULSE 90; TEMP 36.6
[2021-01-30 16:49] VITALS: BP 122/77; PULSE 90; TEMP 36.6
--- NOTE | 2021-02-03 16:30 | W.OBNST ---
Date of service: 02/03/21 Time of Service: 16:31 NST Evaluation Reason for NST Reasons for Nonstress Test: GDM-INSULIN Gestational Age Gestational Age in Weeks and Days: 38 Weeks and 4Days Test and Monitor Explained Test/Monitor Explained: Test Explained, Monitor Explained and Patient Verbalized Understanding Vital Signs Blood Pressure: 122/77 Pulse: 90 Temperature: 97.8 F Urine Results Urine Protein: Negative Urine Ketones: Negative Urine Glucose: Negative Urine Blood: Negative NST Information Date on Monitor: 01/30/21 Time on Monitor: 16:27 Date off Monitor: 01/30/21 Time off Monitor: 16:48 Total Time on Monitor: 21 NST Interventions: None Contraction Frequency: 0 NST Evaluation Patient States Movement: Present FHR Baseline: 125 Variability: Moderate 6-25 bpm Accelerations: 15x15 Decelerations: None NST Results: Reactive Note NST Note Note: Reactive NST. I reviewed the patient's record of fingersticks all of which have been normal. NST Reviewed and Verified by: Basia Lanza
[2021-02-03 16:31] VITALS: BP 122/77; PULSE 90; TEMP 36.6
== END 2021-01-30 17:00 | disposition home or self-care (01) ==
LOC: BCD 16:20 → OBS 16:22
PROVIDERS: PCP Nurse Practitioner; Visit Provider Obstetrics & Gynecology Gynecology
DX: O24.414 Gestational diabetes mellitus in pregnancy, insulin controlled (principal); Z79.4 Long term (current) use of insulin; Z3A.38 38 weeks gestation of pregnancy
CPT/HCPCS: 59025

== ENCOUNTER 2021-02-02 07:32 | Outpatient (CLI) | payer MEDICAID, SELFPAY ==
[2021-02-02 10:05] VITALS: BP 134/78; PULSE 80; TEMP 36.9
[2021-02-02 10:14] VITALS: BP 134/78; PULSE 80
--- NOTE | 2021-02-02 20:23 | W.OBNST ---
Date of service: 02/02/21 Time of Service: 20:24 NST Evaluation Reason for NST Reasons for Nonstress Test: GDM-INSULIN Gestational Age Gestational Age in Weeks and Days: 38 Weeks and 4Days Test and Monitor Explained Test/Monitor Explained: Test Explained, Monitor Explained and Patient Verbalized Understanding Vital Signs Blood Pressure: 134/78 Pulse: 80 Temperature: 98.4 F NST Information Date on Monitor: 02/02/21 Time on Monitor: 10:00 Date off Monitor: 02/02/21 Time off Monitor: 10:42 Total Time on Monitor: 42 NST Interventions: PO Hydration NST Evaluation Patient States Movement: Present FHR Baseline: 125 Variability: Moderate 6-25 bpm Accelerations: 15x15 Decelerations: None NST Results: Reactive Note NST Note Note: Patient seen at [facility] office in follow-up after NST. Plan induction of labor beginning 02/05/2021 discussed. NST Reviewed and Verified by: Basia Lanza
[2021-02-02 20:24] VITALS: BP 134/78; PULSE 80; TEMP 36.9
== END 2021-02-02 10:46 | disposition home or self-care (01) ==
LOC: BCD 07:58 → OBS 08:51
PROVIDERS: PCP Nurse Practitioner; Visit Provider Obstetrics & Gynecology
DX: O24.414 Gestational diabetes mellitus in pregnancy, insulin controlled (principal); Z79.4 Long term (current) use of insulin; Z3A.38 38 weeks gestation of pregnancy
CPT/HCPCS: 59025

== ENCOUNTER 2021-02-05 16:35 | Inpatient (IN) | payer MEDICAID, SELFPAY ==
--- NOTE | 2021-02-03 17:39 | W.PM.OBHPL1 ---
Documented by User: Basia Lanza MD 02/09/21 22:02 Assessment and Plan Assessment and plan (1) GBS (group B Streptococcus carrier), +RV culture, currently : Status: Acute (2) Hypothyroid in , antepartum: Status: Acute (3) Major depressive disorder, recurrent episode, unspecified: Status: Acute (4) Marijuana use: Status: Acute (5) Gestational diabetes: Status: Acute Qualifiers: Gestational diabetes mellitus control: insulin-controlled Trimester: third trimester Qualified Code(s): O24.414 - Gestational diabetes mellitus in , insulin controlled (6) Elective induction of labor planned: Status: Acute OB-HPI Labor/Delivery History of Present Illness Reason for Visit: IUP AT 39 WEEK EGA GESTATIONAL DIABETES RIVAS Calculator Estimated Delivery Date Method Current WG Current Estimate 02/12/21 Ultrasound #1 39w 4d Other Estimates 02/05/21 LMP (Certain) 40w 4d History of Present Expected Delivery Route/Plan - CNM, transferred to [place] care d/t need for insulin FOB/maite Burns BB yes to circ GDM 12/22/2020. 3 units Novolin-N at bedtime. Specific Issues/Plan [facility]. [facility] EMR. Last PAP 09/2017 = [facility] 2. Rx'ed for chlamydia in 2014 3. [place] result = low prob x3, male fetus 4. CF carrier screen negative 5. Elevated TSH at initial OB, started levothyroxine 25 mcg daily 5a. TSH/T4 at 26 wks is nml @ 1.83 6. Depression, no meds. Eval'ed by [facility] 08/08/20 with psych consult. Sertraline 50 mg daily beginning 12/2020 for depression. ADHD meds recommended . 7. Low dose ASA since 14 wks for nullip & BMI @ 35, early glucola = 91 8. Plans to pump breastmilk, not directly nurse it will feel too weird 9. MJ use is 1-2 bowls per day. Counseled and advised to cease use, 9a. Pt aware of need for POSC if UDS THC+ at 28 or 36 wks, 9b. THC+ at 28 wks. POSC needs to be completed at time of admission to for IOL 10. 11/10/20: +GDM 1hr Glucola 215. CGM & F/S initated. 12/04/20. Normal fasting and postprandials. NPH insulin held. 12/22/20.Fasting fingersticks> 95. 01/21/21 Novolog-N 4 units at bedtime. NSTs and Fri. Plan admission for cervical ripening 02/05/21 and Oxytocin IOL 02/06/21. Review of Systems Constitutional Constitutional: Reports system reviewed and no additional complaints, except as documented and Reports weight gain (~26 pounds gained during ) Respiratory Respiratory: Reports system reviewed and no additional complaints, except as documented Genitourinary Genitourinary: Reports system reviewed and no additional complaints, except as documented Integumentary/Breasts Skin/Breast: Reports system reviewed and no additional complaints, except as documented Psychiatric Comments: Patient feels that the depression symptoms are stable with her current dose of sertraline Endocrine Comments: She continues to use Novolin-N 4 units at bedtime with satisfactory glycemic control PFSH Medical History Anxiety disorder, unspecified Arrested labor GBS (group B Streptococcus carrier), +RV culture, currently Gestational diabetes 11/23/20. Diagnosed 32 weeks Novolin and 4 units at bedtime. Major depressive disorder, recurrent episode, unspecified Marijuana use Is trying to reduce use but has not been able to quit use altogether. Her goal is to quit entirely by the end of Sep 2020. Still smoking 1-2 bowls daily for appetite stimulation and sleep and slowing racing thoughts as of 11/28/2020 atony of uterus with hemorrhage hemorrhage of vagina Smoker Motivated to quit, has switched to vaping, is currently using 0% nicotine. Smoked Cigs for 12 yrs. Quit 06/13/20 Surgical History (Updated 02/07/21 @ 21:57 by Savana Clancy DO) Status post primary low transverse section Family History (Updated 11/28/20 @ 11:04 by Soha Diallo MD) Mother Mental health problem reports by mother of multiple diagnoses but the specific diagnoses mother reports are not reliable per Mare. H/O: hysterectomy Social History (Updated 02/03/21 @ 17:47 by Basia Lanza MD) Smoking/Tobacco Use Status: Current every day Smokeless tobacco user: other Quit status: considering quitting Second Hand Exposure: No Counseling given: other Smoking risk assessment performed?: Yes Alcohol Intake: never Details: 07/27/20 stopped with knowledge of al Drug use: Never Substance use type: marijuana Counseling given: Yes (Would like to quit until after the baby is born) Counseling provided: other Details: 07/27/20 given info on cessation. 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 Pets and animals: Yes Pets and animals: dog(s) Current gender identity: female What is your relationship status?: living with partner How often do you talk on the phone with friends or family?: three or more times per week Panel score (0-1 are the most socially isolated patients): 2 What type of physical activity do you participate in: walking Frequency: daily Drive intox or ride w/intox hi low truck driver: No Working smoke detector in home: Yes Fire extinguisher in home: Yes Carbon monox detector in home: Yes Do you feel safe at home: Yes Do you feel safe in your relationship?: Yes Female Reproductive History Menstrual control method: none History History 2 Para 0 Hx # Term Pregnancies 0 Multiple births 0 Hx # Pregnancies 0 Ectopic pregnancies 0 AB induced 0 Hx Number of Living Children 0 AB spontaneous 1 Meds Home Medications and Allergies Allergies Allergy/AdvReac Type Severity Reaction Status Date / Time No Known Allergies Allergy Verified 12/29/20 10:46 Home Medications Medication Instructions Recorded Confirmed Type prenat.vits,jimmy,oai-nxhw-eobkn 1 tab PO DAILY 06/13/20 02/05/21 History aspirin 81 mg tablet,delayed 81 mg PO DAILY 09/18/20 02/05/21 History release blood-glucose meter #1 ea 11/10/20 02/05/21 Rx ferrous sulfate 27 mg iron tablet 27 mg PO DAILY #60 tab 11/10/20 02/05/21 Rx flash glucose scanning reader #1 ea 11/10/20 02/05/21 Rx flash glucose sensor #1 ea 11/10/20 02/05/21 Rx blood sugar diagnostic #100 ea 12/29/20 02/05/21 Rx lancets 28 gauge #100 ea 12/29/20 02/05/21 Rx levothyroxine 50 mcg capsule 25 mcg PO DAILY #90 cap 12/29/20 02/05/21 Rx sertraline 50 mg tablet 50 mg PO DAILY #90 tab 01/11/21 02/05/21 Rx insulin NPH isoph U-100 human 100 4 unit SUBCUT QPM ml 01/26/21 02/05/21 History unit/mL (3 mL) subcutaneous pen Exam Detailed Labor and Delivery Exam Torres Score: Cervical Points Exam 0 1 2 3 Dilation Closed 1-2cm 3-4 cm 5-6cm Effacement 0-30% 40-50% 60-70% 80% Consistency Firm Medium Soft Station -3 -2 -1,0 +1,+2 Position Posterior Mid Anterior Currently Torres score = 3. Fetus A Monitor Accelerations: 15 X 15 Monitor Decelerations: None Variability: Moderate (6-25 BPM) Presentation: Vertex Categories: Category I Est. Weight: 01/17/2021: OB U/S 3010 g (6 pounds 10 ounces) Neck Exam Neck Exam: Normal Respiratory Exam Respiratory Exam: Normal Cardiovascular Exam Cardiovascular Exam: Normal Abdominal Exam Abdominal Exam: Normal Exam Exam: Normal Extremities Exam Extremities Exam: Normal Skin Exam Skin Exam: Normal Neurological Exam Neurological Exam: Normal Psychiatric Exam Psychiatric Exam: Normal Risk Assessment Risk for Shoulder Dystocia Historical/Initial OB: POSITIVE FOR: Pre- BMI>30; NEGATIVE FOR: Pelvic Abnormality, Previous Shoulder Dystocia or Previous Macrosomia Counseling: @ iob bmi >30 reviewed wt gain of no more than 25 lbs. al Risk for Pre-Eclampsia Date Initiated/Initials: 07/27/20 al Yes, if one or more: NEGATIVE FOR: Hx Pre-E/Gest HTN, Chronic HTN, Multiple Gestation, Pre-gestational DM, Renal Disease, Systemic Lupus or APA Syndrome Yes, if 2 or more: POSITIVE FOR: Nulliparity, Age>= 35 yrs and BMI>30; NEGATIVE FOR: >10yr btwn pregnancies, ethinicty, Mother/Sister w/ Pre-E or Previous IUGR Risk for Post- Hemorrhage Initial: NEGATIVE FOR: Multiple Gestation, Previous PPH, Known Clotting Deficiency, Grand Multiparity or Anticoagulation Documented by User: Savana Clancy DO 02/05/21 17:46 Date of service: 02/05/21 Time of Service: 17:45 OB-HPI Labor/Delivery History of Present Illness Reason for Visit: IUP AT 39 WEEK EGA GESTATIONAL DIABETES Chief Complaint: Scheduled Induction of Labor Indication for Induction: Gestational Diabetes. RIVAS Calculator Estimated Delivery Date Method Current WG Current Estimate 02/12/21 Ultrasound #1 39w 4d Other Estimates 02/05/21 LMP (Certain) 40w 4d History of Present Expected Delivery Route/Plan - CNM, transferred to [place] [facility] d/t need for insulin FOB/maite Burns BB yes to circ GDM 12/22/2020. 3 units Novolin-N at bedtime. Specific Issues/Plan [facility]. [facility]. Last PAP 09/2017 = [facility] 2. Rx'ed for chlamydia in 2014 3. [place] result = low prob x3, male fetus 4. CF carrier screen negative 5. Elevated TSH at initial OB, started levothyroxine 25 mcg daily 5a. TSH/T4 at 26 wks is nml @ 1.83 6. Depression, no meds. [facility]. Sertraline 50 mg daily beginning 12/2020 for depression. ADHD meds recommended . 7. Low dose ASA since 14 wks for nullip & BMI @ 35, early glucola = 91 8. Plans to pump breastmilk, not directly nurse it will feel too weird 9. MJ use is 1-2 bowls per day. Counseled and advised to cease use, 9a. Pt aware of need for POSC if UDS THC+ at 28 or 36 wks, 9b. THC+ at 28 wks. POSC needs to be completed at time of admission to for IOL 10. 11/10/20: +GDM 1hr Glucola 215. CGM & F/S initated. 12/04/20. Normal fasting and postprandials. NPH insulin held. 12/22/20.Fasting fingersticks> 95. 01/21/21 Novolog-N 4 units at bedtime. NSTs and Fri. Plan admission for cervical ripening 02/05/21 and Oxytocin IOL 4/13/21. PFSH Medical History Anxiety disorder, unspecified Arrested labor GBS (group B Streptococcus carrier), +RV culture, currently Gestational diabetes 11/23/20. Diagnosed 32 weeks Novolin and 4 units at bedtime. Major depressive disorder, recurrent episode, unspecified Marijuana use Is trying to reduce use but has not been able to quit use altogether. Her goal is to quit entirely by the end of Sep 2020. Still smoking 1-2 bowls daily for appetite stimulation and sleep and slowing racing thoughts as of 11/28/2020 atony of uterus with hemorrhage hemorrhage of vagina Smoker Motivated to quit, has switched to vaping, is currently using 0% nicotine. Smoked Cigs for 12 yrs. Quit 06/13/20 Surgical History (Updated 02/07/21 @ 21:57 by Savana Clancy DO) Status post primary low transverse section Family History (Updated 11/28/20 @ 11:04 by Soha Diallo MD) Mother Mental health problem reports by mother of multiple diagnoses but the specific diagnoses mother reports are not reliable per [facility]. H/O: hysterectomy Social History (Updated 02/03/21 @ 17:47 by Basia Lanza MD) Smoking/Tobacco Use Status: Current every day Smokeless tobacco user: other Quit status: considering quitting Second Hand Exposure: No Counseling given: other Smoking risk assessment performed?: Yes Alcohol Intake: never Details: 07/27/20 stopped with knowledge of al Drug use: Never Substance use type: marijuana Counseling given: Yes (Would like to quit until after the baby is born) Counseling provided: other Details: 07/27/20 given info on cessation. 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 Pets and animals: Yes Pets and animals: dog(s) Current gender identity: female What is your relationship status?: living with partner How often do you talk on the phone with friends or family?: three or more times per week Panel score (0-1 are the most socially isolated patients): 2 What type of physical activity do you participate in: walking Frequency: daily Drive intox or ride w/intox hi low truck driver: No Working smoke detector in home: Yes Fire extinguisher in home: Yes Carbon monox detector in home: Yes Do you feel safe at home: Yes Do you feel safe in your relationship?: Yes History History 2 Para 0 Hx # Term Pregnancies 0 Multiple births 0 Hx # Pregnancies 0 Ectopic pregnancies 0 AB induced 0 Hx Number of Living Children 0 AB spontaneous 1 Meds Home Medications and Allergies Allergies Allergy/AdvReac Type Severity Reaction Status Date / Time No Known Allergies Allergy Verified 12/29/20 10:46 Home Medications Medication Instructions Recorded Confirmed Type prenat.vits,jimmy,uvt-issb-vvhia 1 tab PO DAILY 06/13/20 02/05/21 History aspirin 81 mg tablet,delayed 81 mg PO DAILY 09/18/20 02/05/21 History release blood-glucose meter #1 ea 11/10/20 02/05/21 Rx ferrous sulfate 27 mg iron tablet 27 mg PO DAILY #60 tab 11/10/20 02/05/21 Rx flash glucose scanning reader #1 ea 11/10/20 02/05/21 Rx flash glucose sensor #1 ea 11/10/20 02/05/21 Rx blood sugar diagnostic #100 ea 12/29/20 02/05/21 Rx lancets 28 gauge #100 ea 12/29/20 02/05/21 Rx levothyroxine 50 mcg capsule 25 mcg PO DAILY #90 cap 12/29/20 02/05/21 Rx sertraline 50 mg tablet 50 mg PO DAILY #90 tab 01/11/21 02/05/21 Rx insulin NPH isoph U-100 human 100 4 unit SUBCUT QPM ml 01/26/21 02/05/21 History unit/mL (3 mL) subcutaneous pen Risk Assessment Risks Reviewed Risks Reviewed Upon Admission: Yes (Moderate fo rdystocia, low for PPH as of now)
[2021-02-05] VITALS (9 sets, daily range): BP systolic 126–134; BP diastolic 78–87; PULSE 83–194; RESP 16–20; TEMP 36.4–37; O2SAT 96–97
[2021-02-05 17:16] LABS: Source Nasal/Nares
[2021-02-05] MEDS: miSOPROStol 25 MCG TAB VG (17:52)
[2021-02-05 17:54] LABS: COVID-19 PCR Negative (Negative)
--- NOTE | 2021-02-05 17:58 | W.PM.OBNL1 ---
Date of service: 02/05/21 Time of Service: 17:58 Informed Consent Informed Consent: Other (Cervical ripening) Pelvic Exam Dilation: 0 Effacement (%): 30 station: -3 Cervix Position: posterior Consistency: firm BISHOPS Score(Cervical Ripeness Score): 3 Vaginal Exam Presentation: Vertex Contractions Monitor Mode: External Contraction Frequency(min): irregular Contraction Duration(sec): 60 Intensity: Mild/Moderate Fetus A Monitor: External (US) Heart Rate Baseline: 150 Presentation: Vertex Variability: Moderate (6-25 BPM) Categories: Category I FHR Rhythm: Regular Accelerations: 15 X 15 Decelerations: None Assessment and Plan Assessment and plan (1) Elective induction of labor planned: Status: Acute Assessment and plan: Term labor induction for GDM at 39 weeks, on insulin (2) GBS (group B Streptococcus carrier), +RV culture, currently : Status: Acute Assessment and plan: begin PCN in AM or when active (3) Gestational diabetes: Status: Acute Assessment and plan: Accu-check q 4 hours when active Qualifiers: Gestational diabetes mellitus control: insulin-controlled Trimester: third trimester Qualified Code(s): O24.414 - Gestational diabetes mellitus in , insulin controlled (4) Hypothyroid in , antepartum: Status: Acute (5) Smoker: Status: Acute Objective Temp Pulse Resp BP Pulse Ox 98.4 F 194 H 16 134/82 96 02/05/21 16:45 02/05/21 16:49 02/05/21 16:45 02/05/21 16:48 02/05/21 16:49 Laboratory Results WBC Cancelled 02/03/21 17:50 RBC Cancelled 02/03/21 17:50 Hgb Cancelled 02/03/21 17:50 Hct Cancelled 02/03/21 17:50 MCV Cancelled 02/03/21 17:50 MCH Cancelled 02/03/21 17:50 MCHC Cancelled 02/03/21 17:50 RDW Cancelled 02/03/21 17:50 Plt Count Cancelled 02/03/21 17:50 MPV Cancelled 02/03/21 17:50 COVID-19 Source Nasal/nares 02/05/21 17:10 Patient ABO/Rh Cancelled 02/03/21 17:50 Subjective Patient Reports: No new Complaints Interval history since last seen: Patient seen. Induction process reviewed at length. 1st dose cytotec placed vaginally. Category 1 strip Ambien for sleep as needed PCN in the AM or if active COVID negative Results Hemoglobin/Hematocrit: Hgb Cancelled 02/03/21 17:50 Hct Cancelled 02/03/21 17:50 Procedure Procedures: Cervical Ripening Cervical Ripening: Misoprostol
[2021-02-05 18:53] LABS: Abs Immature Grans 0.04 10^3/uL (0.0-0.06); Absolute Basophil Count 0.03 10^3/uL (0.0-0.2); Absolute Eosinophil Count 0.09 10^3/uL (0.0-0.7); Absolute Lymphocyte Count 2.42 10^3/uL (1.2-3.4); Absolute Neutrophil Count 7.97 10^3/uL (1.2-6.7); Basophils % 0.3; Eosinophils % 0.8; HGB 11.1 g/dL (11.2-15.7); Immature Grans % 0.4; Lymphocytes % 21.3; MCH 28.5 pg (27.0-33.0); MCHC 33.6 % (32.0-36.0); MCV 84.8 fL (80-95); MPV 12.1 fL (8.0-11.0); Neutrophils % 70.2; Nucleated RBC 0 %; Platelet Count 203 10^3/uL (130-400); RBC 3.89 10^6/uL (3.93-5.22); RDW 12.8 % (11.7-14.6); RDW-SD 38.8 fL; WBC 11.36 10^3/uL (4.4-10.8)
[2021-02-05] MEDS: Normal Saline Flush 10 ML SYR IVP ×2 (19:23→23:48)
--- NOTE | 2021-02-05 22:16 | NUR.NOTE ---
Nursing Note: Discussed giving misoprostyle with contrx 1-2 min mild decision to observe and check in 2 hours then give miso.if no progress
[2021-02-05] MEDS: Zolpidem 5 MG TAB PO (22:43)
[2021-02-05] MEDS: miSOPROStol 25 MCG TAB PO (23:34)
[2021-02-06] VITALS (34 sets, daily range): BP systolic 121–153; BP diastolic 70–99; PULSE 60–108; RESP 16–18; TEMP 36.6–37; O2SAT 92–99
[2021-02-06] MEDS: miSOPROStol 25 MCG TAB PO (04:07)
[2021-02-06] MEDS: Normal Saline 250 ML IV (07:40)
[2021-02-06] MEDS: Lactated Ringers 1,000 ML 125 ML IV ×2 (08:32→18:21)
[2021-02-06] MEDS: Penicillin G POT. 5,000,000 UNITS in Normal Saline 100 ML 200 UNITS IVPB (08:33)
[2021-02-06] MEDS: Normal Saline Flush 10 ML SYR IVP ×2 (08:34→16:32)
--- NOTE | 2021-02-06 08:44 | W.PM.OBNL1 ---
Date of service: 02/06/21 Time of Service: 08:44 Informed Consent Informed Consent: Other (Cervical ripening) Assessment and Plan Assessment and plan (1) Elective induction of labor planned: Status: Acute Assessment and plan: Continue her Cook catheter with Erwin balloon until cervix is more dilated. She will have penicillin for group B strep prophylaxis. She will have artificial rupture of membranes if warranted, when she has had 2 doses of her penicillin. We will continue to monitor her blood pressures which are running slightly elevated in the 130s 140s over 80s to 90s range without symptoms. We will continue to monitor her Accu-Cheks on a every 4 hours basis. My anticipation would be for vaginal delivery. She is open to pain control if needed, however she intends on laboring without pain medication to the best of her ability. (2) GBS (group B Streptococcus carrier), +RV culture, currently : Status: Acute (3) Gestational diabetes: Status: Acute Qualifiers: Gestational diabetes mellitus control: insulin-controlled Trimester: third trimester Qualified Code(s): O24.414 - Gestational diabetes mellitus in , insulin controlled Objective Abnormal lab results 02/05/21 Range/Units 18:08 WBC 11.36 H (4.4-10.8) 10^3/uL RBC 3.89 L (3.93-5.22) 10^6/uL Hgb 11.1 L (11.2-15.7) g/dL Hct 33.0 L (36.0-46.0) % MPV 12.1 H (8.0-11.0) fL Absolute Neutrophils 7.97 H (1.2-6.7) 10^3/uL Temp Pulse Resp BP Pulse Ox 97.8 F 88 18 136/95 H 98 02/06/21 07:49 02/06/21 07:49 02/06/21 05:24 02/06/21 07:49 02/06/21 07:48 Laboratory Results WBC 11.36 10^3/uL (4.4-10.8) H 02/05/21 18:08 RBC 3.89 10^6/uL (3.93-5.22) L 02/05/21 18:08 Hgb 11.1 g/dL (11.2-15.7) L 02/05/21 18:08 Hct 33.0 % (36.0-46.0) L 02/05/21 18:08 MCV 84.8 fL (80-95) 02/05/21 18:08 MCH 28.5 pg (27.0-33.0) 02/05/21 18:08 MCHC 33.6 % (32.0-36.0) 02/05/21 18:08 RDW 12.8 % (11.7-14.6) 02/05/21 18:08 Plt Count 203 10^3/uL (130-400) 02/05/21 18:08 MPV 12.1 fL (8.0-11.0) H 02/05/21 18:08 Immature Gran % 0.4 02/05/21 18:08 Neutrophils % 70.2 02/05/21 18:08 Lymphocytes % 21.3 02/05/21 18:08 Monocytes % 7.0 02/05/21 18:08 Eosinophils % 0.8 02/05/21 18:08 Basophils % 0.3 02/05/21 18:08 Nucleated RBC % 0 % 02/05/21 18:08 Absolute Neutrophils 7.97 10^3/uL (1.2-6.7) H 02/05/21 18:08 Absolute Lymphocytes 2.42 10^3/uL (1.2-3.4) 02/05/21 18:08 Absolute Monocytes 0.80 10^3/uL (0.1-0.8) 02/05/21 18:08 Absolute Eosinophils 0.09 10^3/uL (0.0-0.7) 02/05/21 18:08 Absolute Basophils 0.03 10^3/uL (0.0-0.2) 02/05/21 18:08 Glucose Cancelled 02/05/21 17:36 COVID-19 Source Nasal/nares 02/05/21 17:10 SARS-CoV-2 (PCR) Negative (Negative) 02/05/21 17:10 Patient ABO/Rh A Positive 02/05/21 18:08 Antibody Screen Negative 02/05/21 18:08 Subjective Patient Reports: No new Complaints Interval history since last seen: Patient seen and examined this morning. She is status post 3 doses of misoprostol, 1 per vagina, 2 additional oral. She is feeling irregular contractions. Cervix is 1 cm, 60% effaced and -2 station. We discussed the possibility of enhancing cervical dilation with a Cook catheter Erwin balloon. Informed consent verbally was obtained. Results Hemoglobin/Hematocrit: Hgb 11.1 g/dL (11.2-15.7) L 02/05/21 18:08 Hct 33.0 % (36.0-46.0) L 02/05/21 18:08 Abnormal Lab Findings: Abnormal Labs 02/05/21 18:08 WBC 11.36 H RBC 3.89 L Hgb 11.1 L Hct 33.0 L MPV 12.1 H Absolute Neutrophils 7.97 H Procedure Procedures: Cervical Ripening Cervical Ripening: Erwin Bulb (Cook catheter placed with 60cc in the uterine balloon and 60 cc in the vaginal balloon. Patient tolerated without difficulty.)
[2021-02-06] MEDS: Penicillin G POT. 3,000,000 UNITS in Normal Saline 50 ML 100 UNITS IVPB ×3 (11:50→20:04)
--- NOTE | 2021-02-06 13:23 | W.OBNST ---
NST Evaluation Gestational Age Gestational Age in Weeks and Days: 39 Weeks and 0Days
--- NOTE | 2021-02-06 17:31 | NUR.NOTE ---
Patient in bathroom vomiting substantial amount. Patient does not feel increase in contractions at this time. States that she has vomited after eating (supper) and earlier today. Will place patient back on monitor at this time.Nursing Note:
--- NOTE | 2021-02-06 18:20 | W.PM.OBNL1 ---
Date of service: 02/06/21 Time of Service: 18:20 Informed Consent Informed Consent: Other (Cervical ripening) Assessment and Plan Assessment and plan (1) Elective induction of labor planned: Status: Acute Assessment and plan: Begin pitocin. AROM when possible. and Assisted Living Nursing Director present for support (2) GBS (group B Streptococcus carrier), +RV culture, currently : Status: Acute Assessment and plan: s/p 3 doses PCN (3) Gestational diabetes: Status: Acute Assessment and plan: Accu-check q 4 hours. Moderate risk for dystocia Qualifiers: Gestational diabetes mellitus control: insulin-controlled Trimester: third trimester Qualified Code(s): O24.414 - Gestational diabetes mellitus in , insulin controlled Objective Abnormal lab results 02/05/21 Range/Units 18:08 WBC 11.36 H (4.4-10.8) 10^3/uL RBC 3.89 L (3.93-5.22) 10^6/uL Hgb 11.1 L (11.2-15.7) g/dL Hct 33.0 L (36.0-46.0) % MPV 12.1 H (8.0-11.0) fL Absolute Neutrophils 7.97 H (1.2-6.7) 10^3/uL Temp Pulse Resp BP Pulse Ox 98.4 F 91 H 18 151/89 H 99 02/06/21 18:02 02/06/21 18:17 02/06/21 05:24 02/06/21 18:02 02/06/21 18:17 Laboratory Results WBC 11.36 10^3/uL (4.4-10.8) H 02/05/21 18:08 RBC 3.89 10^6/uL (3.93-5.22) L 02/05/21 18:08 Hgb 11.1 g/dL (11.2-15.7) L 02/05/21 18:08 Hct 33.0 % (36.0-46.0) L 02/05/21 18:08 MCV 84.8 fL (80-95) 02/05/21 18:08 MCH 28.5 pg (27.0-33.0) 02/05/21 18:08 MCHC 33.6 % (32.0-36.0) 02/05/21 18:08 RDW 12.8 % (11.7-14.6) 02/05/21 18:08 Plt Count 203 10^3/uL (130-400) 02/05/21 18:08 MPV 12.1 fL (8.0-11.0) H 02/05/21 18:08 Immature Gran % 0.4 02/05/21 18:08 Neutrophils % 70.2 02/05/21 18:08 Lymphocytes % 21.3 02/05/21 18:08 Monocytes % 7.0 02/05/21 18:08 Eosinophils % 0.8 02/05/21 18:08 Basophils % 0.3 02/05/21 18:08 Nucleated RBC % 0 % 02/05/21 18:08 Absolute Neutrophils 7.97 10^3/uL (1.2-6.7) H 02/05/21 18:08 Absolute Lymphocytes 2.42 10^3/uL (1.2-3.4) 02/05/21 18:08 Absolute Monocytes 0.80 10^3/uL (0.1-0.8) 02/05/21 18:08 Absolute Eosinophils 0.09 10^3/uL (0.0-0.7) 02/05/21 18:08 Absolute Basophils 0.03 10^3/uL (0.0-0.2) 02/05/21 18:08 Glucose Cancelled 02/05/21 17:36 COVID-19 Source Nasal/nares 02/05/21 17:10 SARS-CoV-2 (PCR) Negative (Negative) 02/05/21 17:10 Patient ABO/Rh A Positive 02/05/21 18:08 Antibody Screen Negative 02/05/21 18:08 Subjective Patient Reports: No new Complaints Interval history since last seen: Patient seen. Cook catheter removed. SVE 4 cm, 70%, -2 Will begin Pitocin. Add CBC, CMP as BP slightly elevated Results Hemoglobin/Hematocrit: Hgb 11.1 g/dL (11.2-15.7) L 02/05/21 18:08 Hct 33.0 % (36.0-46.0) L 02/05/21 18:08 Abnormal Lab Findings: Abnormal Labs 02/05/21 18:08 WBC 11.36 H RBC 3.89 L Hgb 11.1 L Hct 33.0 L MPV 12.1 H Absolute Neutrophils 7.97 H
[2021-02-06 18:42] LABS: Abs Immature Grans 0.04 10^3/uL (0.0-0.06); Absolute Basophil Count 0.04 10^3/uL (0.0-0.2); Absolute Monocyte Count 0.83 10^3/uL (0.1-0.8); Basophils % 0.3; Eosinophils % 0.1; HCT 33.8 % (36.0-46.0); HGB 11.4 g/dL (11.2-15.7); Immature Grans % 0.3; Lymphocytes % 13.4; MCH 28.6 pg (27.0-33.0); MCHC 33.7 % (32.0-36.0); MCV 84.7 fL (80-95); Monocytes % 5.8; Neutrophils % 80.1; Nucleated RBC 0 %; Platelet Count 195 10^3/uL (130-400); RBC 3.99 10^6/uL (3.93-5.22); RDW 12.7 % (11.7-14.6); RDW-SD 39.1 fL; WBC 14.23 10^3/uL (4.4-10.8)
[2021-02-06 18:43] LABS: Absolute Eosinophil Count 0.01 10^3/uL (0.0-0.7); Absolute Lymphocyte Count 1.91 10^3/uL (1.2-3.4)
[2021-02-06 19:01] LABS: ALT 17 U/L (14-59); AST 17 U/L (15-37); Albumin 2.7 g/dL (3.4-5.0); Alkaline Phosphatase 162 U/L (46-116); Anion Gap 12.4 mmol/L (3-11); BUN 5 mg/dL (7-18); Bilirubin, Total 0.8 mg/dL (0.2-1.0); CO2 22.6 mmol/L (21.0-32.0); CREATININE 0.8 mg/dL (0.55-1.02); Calcium 9.6 mg/dL (8.5-10.1); Chloride 101 mmol/L (98-107); Glucose 86 mg/dL (74-106); Potassium 3.7 mmol/L (3.5-5.1); Sodium 136 mmol/L (136-145)
[2021-02-06] MEDS: Oxytocin/Normal Saline 30 UNIT/500 ML BAG 1 UNITS IV (19:04)
[2021-02-06] MEDS: Oxytocin/Normal Saline 30 UNIT/500 ML BAG 2 UNITS IV (19:34)
[2021-02-07] VITALS (67 sets, daily range): BP systolic 120–164; BP diastolic 58–93; PULSE 86–117; RESP 14–18; TEMP 36.6–37.1; O2SAT 96–100
[2021-02-07] MEDS: Penicillin G POT. 3,000,000 UNITS in Normal Saline 50 ML 100 UNITS IVPB ×5 (00:08→16:13)
[2021-02-07] MEDS: Lactated Ringers 1,000 ML 125 ML IV ×2 (02:51→10:44)
[2021-02-07] MEDS: Levothyroxine 25 MCG TAB PO (05:52)
--- NOTE | 2021-02-07 05:57 | W.PM.OBNL1 ---
Date of service: 02/07/21 Time of Service: 05:57 Informed Consent Informed Consent: Other (Cervical ripening) Assessment and Plan Assessment and plan (1) Elective induction of labor planned: Status: Acute Assessment and plan: Pitocin at 13 m/U. AROM, copious clear fluid. Anticipate better progress and cervical change with rupture. Close monitoring of the labor curve when active as patient is at risk for dystocia. Now moderate risk for PPH due to prolonged pitocin use (2) GBS (group B Streptococcus carrier), +RV culture, currently : Status: Acute Assessment and plan: s/p 5 doses PCN (3) Gestational diabetes: Status: Acute Assessment and plan: Accu checks within range Qualifiers: Gestational diabetes mellitus control: insulin-controlled Trimester: third trimester Qualified Code(s): O24.414 - Gestational diabetes mellitus in , insulin controlled (4) Hypothyroid in , antepartum: Status: Acute Objective Abnormal lab results 02/06/21 02/06/21 Range/Units 18:30 18:30 WBC 14.23 H (4.4-10.8) 10^3/uL Hct 33.8 L (36.0-46.0) % MPV 12.0 H (8.0-11.0) fL Absolute Neutrophils 11.40 H (1.2-6.7) 10^3/uL Absolute Monocytes 0.83 H (0.1-0.8) 10^3/uL Anion Gap 12.4 H (3-11) mmol/L BUN 5 L (7-18) mg/dL Alkaline Phosphatase 162 H (46-116) U/L Albumin 2.7 L (3.4-5.0) g/dL Temp Pulse Resp BP Pulse Ox 98.6 F 86 18 136/91 H 98 02/06/21 23:39 02/07/21 05:54 02/06/21 19:14 02/07/21 05:54 02/06/21 19:07 Laboratory Results WBC 14.23 10^3/uL (4.4-10.8) H 02/06/21 18:30 RBC 3.99 10^6/uL (3.93-5.22) 02/06/21 18:30 Hgb 11.4 g/dL (11.2-15.7) 02/06/21 18:30 Hct 33.8 % (36.0-46.0) L 02/06/21 18:30 MCV 84.7 fL (80-95) 02/06/21 18:30 MCH 28.6 pg (27.0-33.0) 02/06/21 18:30 MCHC 33.7 % (32.0-36.0) 02/06/21 18:30 RDW 12.7 % (11.7-14.6) 02/06/21 18:30 Plt Count 195 10^3/uL (130-400) 02/06/21 18:30 MPV 12.0 fL (8.0-11.0) H 02/06/21 18:30 Immature Gran % 0.3 02/06/21 18:30 Neutrophils % 80.1 02/06/21 18:30 Lymphocytes % 13.4 02/06/21 18:30 Monocytes % 5.8 02/06/21 18:30 Eosinophils % 0.1 02/06/21 18:30 Basophils % 0.3 02/06/21 18:30 Nucleated RBC % 0 % 02/06/21 18:30 Absolute Neutrophils 11.40 10^3/uL (1.2-6.7) H 02/06/21 18:30 Absolute Lymphocytes 1.91 10^3/uL (1.2-3.4) 02/06/21 18: Absolute Monocytes 0.83 10^3/uL (0.1-0.8) H 02/06/21 18:30 Absolute Eosinophils 0.01 10^3/uL (0.0-0.7) 02/06/21 18:30 Absolute Basophils 0.04 10^3/uL (0.0-0.2) 02/06/21 18:30 Sodium 136 mmol/L (136-145) 02/06/21 18:30 Potassium 3.7 mmol/L (3.5-5.1) 02/06/21 18:30 Chloride 101 mmol/L (98-107) 02/06/21 18:30 Carbon Dioxide 22.6 mmol/L (21.0-32.0) 02/06/21 18:30 Anion Gap 12.4 mmol/L (3-11) H 02/06/21 18:30 BUN 5 mg/dL (7-18) L 02/06/21 18:30 Creatinine 0.8 mg/dL (0.55-1.02) 02/06/21 18:30 Estimated GFR/1.73 m2 >= 60.00 (mL/min/1.73m2) 02/06/21 18:30 Glucose 86 mg/dL (74-106) 02/06/21 18:30 Calcium 9.6 mg/dL (8.5-10.1) 02/06/21 18:30 Total Bilirubin 0.8 mg/dL (0.2-1.0) 02/06/21 18:30 AST 17 U/L (15-37) 02/06/21 18:30 ALT 17 U/L (14-59) 02/06/21 18:30 Alkaline Phosphatase 162 U/L (46-116) H 02/06/21 18:30 Total Protein 7.0 g/dL (6.4-8.2) 02/06/21 18:30 Albumin 2.7 g/dL (3.4-5.0) L 02/06/21 18:30 COVID-19 Source Nasal/nares 02/05/21 17:10 SARS-CoV-2 (PCR) Negative (Negative) 02/05/21 17:10 Patient ABO/Rh A Positive 02/05/21 18:08 Antibody Screen Negative 02/05/21 18:08 Subjective Patient Reports: No new Complaints Interval history since last seen: Still with regular contractions. Periods of discomfort and periods where she can rest. Baby very active. Results Hemoglobin/Hematocrit: Hgb 11.4 g/dL (11.2-15.7) 02/06/21 18:30 Hct 33.8 % (36.0-46.0) L 02/06/21 18:30 Abnormal Lab Findings: Abnormal Labs 02/05/21 02/06/21 02/06/21 18:08 18:30 18:30 WBC 11.36 H 14.23 H RBC 3.89 L Hgb 11.1 L Hct 33.0 L 33.8 L MPV 12.1 H 12.0 H Absolute Neutrophils 7.97 H 11.40 H Absolute Monocytes 0.83 H Anion Gap 12.4 H BUN 5 L Alkaline Phosphatase 162 H Albumin 2.7 L Procedure Procedures: Other (AROM, clear fluid)
[2021-02-07] MEDS: FentaNYL/ROPIvacaine 2 mcg/ml and 0.1% 200 ML CADD Cassette EP (08:05)
[2021-02-07] MEDS: Sertraline 50 MG TAB PO (10:06)
--- NOTE | 2021-02-07 17:21 | W.PM.OBNL1 ---
Date of service: 02/07/21 Time of Service: 17:21 Informed Consent Informed Consent: Section Delivery and Other (Cervical ripening) Pelvic Exam Dilation: 4 Effacement (%): 90 station: -2 Position: LOP Cervix Position: anterior Consistency: soft Vaginal Exam Presentation: Vertex Contractions Monitor Mode: External Contraction Frequency(min): 2-3 Contraction Duration(sec): 90 Intensity: Strong Fetus A Monitor: External (US) Presentation: Vertex Variability: Moderate (6-25 BPM) Categories: Category I FHR Rhythm: Regular Accelerations: Present Decelerations: None Assessment and Plan Assessment and plan (1) Arrested labor: Status: Acute Assessment and plan: Will proceed to OR for primary section. Full informed consent obtained. Anesthesia, Nursing food checkers and cashiers supervisor, and peds notified (2) GBS (group B Streptococcus carrier), +RV culture, currently : Status: Acute Assessment and plan: s/p 6 doses PCN, will give Ancef and Zithromax (3) Gestational diabetes: Status: Acute Assessment and plan: accu-checks are normal, will have glucose gel available in OR Qualifiers: Gestational diabetes mellitus control: insulin-controlled Trimester: third trimester Qualified Code(s): O24.414 - Gestational diabetes mellitus in , insulin controlled Objective Abnormal lab results 02/06/21 02/06/21 Range/Units 18:30 18:30 WBC 14.23 H (4.4-10.8) 10^3/uL Hct 33.8 L (36.0-46.0) % MPV 12.0 H (8.0-11.0) fL Absolute Neutrophils 11.40 H (1.2-6.7) 10^3/uL Absolute Monocytes 0.83 H (0.1-0.8) 10^3/uL Anion Gap 12.4 H (3-11) mmol/L BUN 5 L (7-18) mg/dL Alkaline Phosphatase 162 H (46-116) U/L Albumin 2.7 L (3.4-5.0) g/dL Temp Pulse Resp BP Pulse Ox 98.5 F 102 H 18 141/92 H 97 02/07/21 17:08 02/07/21 17:08 02/07/21 12:16 02/07/21 17:08 02/07/21 12:16 Laboratory Results WBC 14.23 10^3/uL (4.4-10.8) H 02/06/21 18:30 RBC 3.99 10^6/uL (3.93-5.22) 02/06/21 18:30 Hgb 11.4 g/dL (11.2-15.7) 02/06/21 18:30 Hct 33.8 % (36.0-46.0) L 02/06/21 18: MCV 84.7 fL (80-95) 02/06/21 18: MCH 28.6 pg (27.0-33.0) 02/06/21 18: MCHC 33.7 % (32.0-36.0) 02/06/21: RDW 12.7 % (11.7-14.6) 02/06/21: Plt Count 195 10^3/uL (130-400) 02/06/21 18: MPV 12.0 fL (8.0-11.0) H 02/06/21 18: Immature Gran % 0.3 02/06/21 18: Neutrophils % 80.1 02/06/21 18:30 Lymphocytes % 13.4 02/06/21 18: Monocytes % 5.8 02/06/21 18: Eosinophils % 0.1 02/06/21: Basophils % 0.3 02/06/21 18: Nucleated RBC % 0 % 02/06/21 18:30 Absolute Neutrophils 11.40 10^3/uL (1.2-6.7) H 02/06/21 18: Absolute Lymphocytes 1.91 10^3/uL (1.2-3.4) 02/06/21 18: Absolute Monocytes 0.83 10^3/uL (0.1-0.8) H 02/06/21 18: Absolute Eosinophils 0.01 10^3/uL (0.0-0.7) 02/06/21: Absolute Basophils 0.04 10^3/uL (0.0-0.2) 02/06/21 18:30 Sodium 136 mmol/L (136-145) 02/06/21 18:30 Potassium 3.7 mmol/L (3.5-5.1) 02/06/21 18:30 Chloride 101 mmol/L (98-107) 02/06/21 18:30 Carbon Dioxide 22.6 mmol/L (21.0-32.0) 02/06/21 18:30 Anion Gap 12.4 mmol/L (3-11) H 02/06/21 18:30 BUN 5 mg/dL (7-18) L 02/06/21 18:30 Creatinine 0.8 mg/dL (0.55-1.02) 02/06/21 18:30 Estimated GFR/1.73 m2 >= 60.00 (mL/min/1.73m2) 02/06/21 18:30 Glucose 86 mg/dL (74-106) 02/06/21 18:30 Calcium 9.6 mg/dL (8.5-10.1) 02/06/21 18:30 Total Bilirubin 0.8 mg/dL (0.2-1.0) 02/06/21 18:30 AST 17 U/L (15-37) 02/06/21 18:30 ALT 17 U/L (14-59) 02/06/21 18:30 Alkaline Phosphatase 162 U/L (46-116) H 02/06/21 18:30 Total Protein 7.0 g/dL (6.4-8.2) 02/06/21 18:30 Albumin 2.7 g/dL (3.4-5.0) L 02/06/21 18:30 COVID-19 Source Nasal/nares 02/05/21 17:10 SARS-CoV-2 (PCR) Negative (Negative) 02/05/21 17:10 Patient ABO/Rh A Positive 02/05/21 18:08 Antibody Screen Negative 02/05/21 18:08 Subjective Interval history since last seen: Patient has been comfortable with epidural. ROM x 12 hours. Cervical exam, unchanged despite regular strong contractions and pitocin augmention. Baby with significant caput and no decent of the vertex into th epelvis, still -2 station at best. 30 minute conversation about continued labor vs section and its risks, benefits and alternatives. All questions from patient, and Closet Organizer answered. Results Hemoglobin/Hematocrit: Hgb 11.4 g/dL (11.2-15.7) 02/06/21 18:30 Hct 33.8 % (36.0-46.0) L 02/06/21 18:30 Abnormal Lab Findings: Abnormal Labs 02/05/21 02/06/21 02/06/21 18:08 18:30 18:30 WBC 11.36 H 14.23 H RBC 3.89 L Hgb 11.1 L Hct 33.0 L 33.8 L MPV 12.1 H 12.0 H Absolute Neutrophils 7.97 H 11.40 H Absolute Monocytes 0.83 H Anion Gap 12.4 H BUN 5 L Alkaline Phosphatase 162 H Albumin 2.7 L
[2021-02-07] MEDS: AZITHROMYCIN 500 MG in Normal Saline 250 ML 250 MG IVPB (17:41)
[2021-02-07] MEDS: Sodium Citrate 30 ML CUP PO (17:41)
[2021-02-07] MEDS: ceFAZolin 2 GM/50 ML BAG IVPB (17:41)
[2021-02-07] MEDS: Lactated Ringers 1,000 ML 30 ML IV (18:13)
[2021-02-07] MEDS: Bupivacaine LIPOSOME/PF 133 MG/10 ML VIAL IJ (19:35)
[2021-02-07] MEDS: Bupivacaine 0.25% Pres-Free 10 ML VIAL (19:35)
[2021-02-07] MEDS: Carboprost 250 MCG/ML AMP (19:57)
[2021-02-07] MEDS: miSOPROStol 200 MCG TAB (20:16)
[2021-02-07] MEDS: Oxytocin/Normal Saline 30 UNIT/500 ML BAG 95 UNITS IV (20:40)
--- NOTE | 2021-02-07 21:43 | W.PM.OBCSECT ---
Date of service: 02/07/21 Time of Service: 21:44 Operative Note Operative Note Delivery Method: Unscheduled Category: Urgent DATE OF PROCEDURE: 02/07/21 PRE-OP DIAGNOSES: Labor arrest POST-OP DIAGNOSES: same PROCEDURE: Primary low transverse section with subsequent uterine curettage due to atony SURGEON: Savana Clancy Hydrogen Operator: Adrianna Mendez Anesthesia: epidural Estimated blood loss (mL): 1,500 Pathology: none sent Complications: Other (Postoperative uterine atony) Patient was transported to: floor Patient's condition: stable Indications: Patient is a 30-year-old female with labor induction at term due to gestational diabetes on insulin. She had initial cervical ripening upon admission with misoprostol x3 doses. She subsequently had a Cook catheter Erwin balloon placed for 12 hours for mechanical cervical dilation. Subsequent to this, she received Pitocin augmentation of her labor and artificial rupture of membranes for clear fluid in order to enhance labor progress. She failed to have cervical change beyond 4 cm and failed to have descent into the pelvis. Baby had an overall reassuring status with a category 1 strip and failure of descent of the vertex into the pelvis beyond a -2 station. In light of this fact, the risk benefits and alternatives of delivery were explained to the patient and full informed consent had been obtained. Findings: Delivered a viable male infant in the occiput posterior position. Normal-appearing tubes, ovaries and uterus. Postoperative uterine atony with hemorrhage for a total blood loss of 1500 cc. Procedure Description: Patient is a 30-year-old female primigravida who had care with women's wellness initially by midwives and subsequent by physician service due to gestational diabetes requiring insulin. She had induction of labor at 39 weeks due to her gestational diabetes. She initially had an unfavorable cervix which was rectified with 3 doses of misoprostol followed by Cook catheter for mechanical cervical dilation. She had Pitocin augmentation of labor and artificial rupture of membranes. Total rupture time was approximately 12 hours. She failed to have adequate labor progress beyond 4 cm and beyond descent below -2 station. Baby was noted to be asynclitic and had significant caput. In light of all these facts, the patient was taken to the operating room after full informed consent was obtained. She had an epidural placed previously which was redosed, tested and found to be adequate. Due to her prolonged labor and suspected large baby, 2 IVs were running in the operating room. She had been a Erwin catheter placed and vaginal preparation with Betadine solution. She was then placed in the dorsal supine position with leftward tilt and prepped and draped otherwise in the usual sterile fashion. A Pfannenstiel skin incision was made and carried down to the underlying fascia the fascial incision was incised in the midline and extended bluntly laterally. Fascia was split from the rectus muscle rectus muscle identified split in the midline peritoneum identified tented up and entered sharply and the peritoneal incision extended superiorly and inferiorly. At this point bladder blade was inserted and the vesicouterine peritoneum was identified tented up and entered sharply. Bladder flap was meticulously dissected away from the lower uterine segment and a low transverse uterine incision was made with a scalpel and extended bluntly laterally. Fetus was found to be in the occiput posterior position and vertex delivered atraumatically through the uterine incision. Shoulders followed with ease. Three-vessel cord was noted clamped x2 and cut and the infant was then handed off to the waiting pediatric team. After initial evaluation baby was placed skin to skin with mother and father. At this point cord blood gases and cord blood sample were both obtained. The placenta was manually expressed from the uterus and found to be intact. The uterine incision was then closed in 2 layers of 0 Monocryl suture initially in a running locked fashion and subsequently in an imbricating fashion. At this point the uterus was returned to the abdomen after inspection of normal tubes and ovaries. Patient did at this point note significant right lower quadrant tenderness for which her albuterol was redosed. The uterine incision was inspected and found to be hemostatic. Abdomen was irrigated with copious amounts of normal saline and had been cleared of all clot and debris. At this point the fascial incision was closed using 0 Vicryl suture in a running fashion subcutaneous tissue irrigated with copious amounts of normal saline subcu space was reapproximated with 0 Vicryl suture in a simple interrupted fashion and the skin edge was reapproximated with a subcuticular stitch of 4-0 Monocryl. Steri-Strips and sterile dressing were placed. At this point all drapes were removed and the patient was transported from the OR table to the postoperative bed. On inspection and fundal massage there was noted to be elevation of the uterine fundus to approximately 3 cm above the umbilicus and deviated rightward. Initial attempts to express clot from the lower uterine segment was unsuccessful due to patient discomfort and difficulty in positioning on a postoperative bed. At this point the decision was made to return her to the operating table. Both baby, dad, nursing team and Dula then departed the operating room to return to the center. Patient had a moderate amount of uterine atony and received IV Pitocin, 1 dose of Hemabate and once returned to the OR table placed in the dorsolithotomy position in yellowfin stirrups. She was again reprepped and draped in the usual sterile fashion. A speculum was inserted into the vaginal vault and ring forcep used to express approximately 400 cc of clot from the lower uterine segment. Patient then received 800 mcg of misoprostol rectally and 1 dose of Tranxene Stephen acid intravenously. Uterine tonicity was significantly improved. We continue to watch for additional bleeding or atony. She had aggressive fundal massage. And over the course of approximately 45 minutes there was minimal bleeding and a firm fundus and lower uterine segment. At this point, I felt it safe for her to be transported back to a regular bed and returned to the center floor. Patient had tolerated this without difficulty. She did receive additional doses and her epidural for good pain control. She was redosed with Ancef 2 g in light of the fact that she had a total blood loss of 1500 cc and ordered prevent infection. She was returned to the floor in stable condition with stable vital signs and Erwin catheter draining clear yellow urine. Postoperative debriefing was had both with the patient intraoperatively and patient, her , and her Dula postoperatively to explain the events and scenario of her section with uterine atony and expected ongoing steps and outcomes. She will continue to receive Pitocin for the completion of this 500 cc bag along with oral Cytotec [id number]. Additional oxytocics will be used as necessary. Findings: Delivery of viable male infant from the vertex occiput posterior position. Normal-appearing tubes ovaries and uterus. uterine atony responding nicely to evacuation of clot in the lower uterine segment, oxytocics, Erwin catheter, TXA. Complications: uterine atony EBL: 1500 mL total, 800 intraoperatively. Gestational Age in Weeks/Days: 39 Weeks and 2 Days Infant Gender: Male weight: 7 lb 6.873 oz
[2021-02-07] MEDS: Lactated Ringers 1,000 ML 120 ML IV (22:07)
[2021-02-08] VITALS (13 sets, daily range): BP systolic 115–156; BP diastolic 64–101; PULSE 86–119; RESP 14–24; TEMP 36.4–37.2; O2SAT 95–99
[2021-02-08 00:31] LABS: Abs Immature Grans 0.11 10^3/uL (0.0-0.06); Absolute Basophil Count 0.04 10^3/uL (0.0-0.2); Absolute Lymphocyte Count 1.49 10^3/uL (1.2-3.4); Absolute Monocyte Count 1.15 10^3/uL (0.1-0.8); Basophils % 0.2; HCT 28.3 % (36.0-46.0); HGB 9.6 g/dL (11.2-15.7); Immature Grans % 0.5; Lymphocytes % 7.1; MCH 29.1 pg (27.0-33.0); MCHC 33.9 % (32.0-36.0); MCV 85.8 fL (80-95); Monocytes % 5.5; Neutrophils % 86.7; Nucleated RBC 0 %; Platelet Count 170 10^3/uL (130-400); RDW 12.9 % (11.7-14.6); RDW-SD 40.5 fL; WBC 20.93 10^3/uL (4.4-10.8)
[2021-02-08 00:34] LABS: Absolute Neutrophil Count 18.15 10^3/uL (1.2-6.7)
[2021-02-08] MEDS: miSOPROStol 100 MCG TAB 600 MCG PO (03:52)
[2021-02-08] MEDS: Lactated Ringers 1,000 ML 120 ML IV (06:07)
[2021-02-08] MEDS: Ibuprofen 600 MG TAB PO ×2 (06:19→12:06)
[2021-02-08] MEDS: Acetaminophen 325 MG TAB 650 MG PO ×2 (06:20→12:06)
[2021-02-08] MEDS: Levothyroxine 25 MCG TAB PO (06:21)
[2021-02-08] MEDS: Docusate Sodium 100 MG CAP PO (06:22)
--- NOTE | 2021-02-08 06:32 | W.PM.OBPNV1 ---
Date of service: 02/08/21 Time of Service: 06:33 Assessment and Plan Assessment and plan (1) Status post primary low transverse section: Status: Acute Assessment and plan: Post op day #1 S/P primary section. Doing well (2) atony of uterus with hemorrhage: Status: Acute Assessment and plan: Uterus firm, PO cytotec x 24 hours. Hgb stable, await AM draw (3) Gestational diabetes: Status: Acute Assessment and plan: Slightly elevated this AM. Will plan for 2 hour GTT post Qualifiers: Gestational diabetes mellitus control: insulin-controlled Trimester: third trimester Qualified Code(s): O24.414 - Gestational diabetes mellitus in , insulin controlled Subjective Subjective Interval history: Patient seen this AM, some discomfort. Scant bleeding. Had an episode of chills with second dose of cytotec. Breast feeding and bonding well. Events of yesterday reviewed again. Hungry this AM Patient comments: Incisional pain [place] baby status: Doing well, Nursing well and Strong Bonding Observed feeding status: Exclusively breast feeding Exam Physical Exam Vital signs: Temp Pulse Resp BP Pulse Ox 99.0 F 119 H 24 156/91 H 98 02/08/21 04:25 02/08/21 04:25 02/08/21 04:25 02/08/21 04:25 02/08/21 04:25 HEENT Exam HEENT Exam: Normal Respiratory Exam Respiratory Exam: Normal Cardiovascular Exam Cardiovascular Exam: Normal Abdominal Exam Abdomen: Tender Fundal Exam Fundus: Below Umbilicus and Firm Extremities Exam Extremity Exam: Normal and Edema (2+ B/L) Neurological Exam Neurological Exam: Normal Psychiatric Exam Psychiatric Exam: Normal Results Hemoglobin/Hematocrit: Hgb 9.6 g/dL (11.2-15.7) L 02/08/21 00:20 Hct 28.3 % (36.0-46.0) L 02/08/21 00:20 Abnormal Lab Findings: Abnormal Labs 02/05/21 02/06/21 02/06/21 18:08 18:30 18:30 WBC 11.36 H 14.23 H RBC 3.89 L Hgb 11.1 L Hct 33.0 L 33.8 L MPV 12.1 H 12.0 H Absolute Neutrophils 7.97 H 11.40 H Absolute Monocytes 0.83 H Anion Gap 12.4 H BUN 5 L Alkaline Phosphatase 162 H Albumin 2.7 L 02/08/21 00:20 WBC 20.93 H RBC 3.30 L Hgb 9.6 L Hct 28.3 L MPV 12.0 H Absolute Neutrophils 18.15 H Absolute Monocytes 1.15 H Anion Gap BUN Alkaline Phosphatase Albumin
[2021-02-08 07:47] LABS: Abs Immature Grans 0.09 10^3/uL (0.0-0.06); Absolute Basophil Count 0.04 10^3/uL (0.0-0.2); Absolute Lymphocyte Count 2.31 10^3/uL (1.2-3.4); Absolute Monocyte Count 1.15 10^3/uL (0.1-0.8); Absolute Neutrophil Count 15.01 10^3/uL (1.2-6.7); Basophils % 0.2; HCT 28.3 % (36.0-46.0); HGB 9.5 g/dL (11.2-15.7); Immature Grans % 0.5; Lymphocytes % 12.4; MCH 28.6 pg (27.0-33.0); MCHC 33.6 % (32.0-36.0); MCV 85.2 fL (80-95); MPV 12.5 fL (8.0-11.0); Monocytes % 6.2; Neutrophils % 80.7; Nucleated RBC 0 %; Platelet Count 188 10^3/uL (130-400); RBC 3.32 10^6/uL (3.93-5.22); RDW-SD 40.3 fL
[2021-02-08] MEDS: Sertraline 50 MG TAB PO (08:47)
[2021-02-08] MEDS: miSOPROStol 100 MCG TAB 200 MCG PO (12:05)
[2021-02-09 01:00] VITALS: BP 133/80; PULSE 91; RESP 18; TEMP 36.3
[2021-02-09] MEDS: Acetaminophen 325 MG TAB 650 MG PO ×3 (01:34→17:17)
[2021-02-09] MEDS: Ibuprofen 600 MG TAB PO ×3 (01:35→21:35)
[2021-02-09 07:50] VITALS: BP 127/83; PULSE 88; RESP 20; TEMP 36.4; O2SAT 97
[2021-02-09] MEDS: Docusate Sodium 100 MG CAP PO ×2 (07:50→17:15)
[2021-02-09] MEDS: Levothyroxine 25 MCG TAB PO (07:50)
[2021-02-09] MEDS: Sertraline 50 MG TAB PO (07:50)
[2021-02-09 11:40] VITALS: BP 136/89; PULSE 82; RESP 18; TEMP 36.8; O2SAT 97
[2021-02-09 15:40] VITALS: BP 121/78; PULSE 76; RESP 18; TEMP 36.8; O2SAT 97
[2021-02-09 17:00] VITALS: BP 137/82; PULSE 88; RESP 16; TEMP 36.2; O2SAT 98
[2021-02-09] MEDS: oxyCODONE 5 mg/Acetaminophen 325 mg TAB PO ×2 (17:16→21:45)
[2021-02-09 21:15] VITALS: BP 128/75; PULSE 85; RESP 17; TEMP 36.7; O2SAT 97
--- NOTE | 2021-02-09 22:03 | W.PM.OBPNV1 ---
Date of service: 02/09/21 Time of Service: 22:04 Assessment and Plan Assessment and plan (1) Status post primary low transverse section: Status: Acute Assessment and plan: Satisfactory recovery postop day 2. Plan to discharge to home on 02/10/2021. Subjective Subjective Interval history: Postop day 2 primary low transverse delivery of a viable male after arrest of labor and descent. Patient comments: Pain well controlled, Tolerating diet and Flatus present [place] baby status: Doing well, Nursing well and Strong Bonding Observed [place] feeding status: Exclusively breast feeding Exam Physical Exam Vital signs: Temp Pulse Resp BP Pulse Ox 98.0 F 85 17 128/75 97 02/09/21 21:15 02/09/21 21:15 02/09/21 21:15 02/09/21 21:15 02/09/21 21:15 Constitutional Constitutional: no acute distress HEENT Exam HEENT Exam: Not Done Neck Exam Neck Exam: Normal Respiratory Exam Respiratory Exam: Normal (Lungs clear to auscultation bilaterally) Cardiovascular Exam Cardiovascular Exam: Normal (Heart regular rate and rhythm) Abdominal Exam Abdomen: Other (Incision clean dry and intact Steri-Strips in place no ecchymosis or induration) Fundal Exam Fundus: Below Umbilicus Rectal Exam Rectal Exam: Not Done Extremities Exam Extremity Exam: Normal Back/Spine/Pelvis Exam Back Exam: Not Done Skin Exam Skin Exam: Normal Neurological Exam Neurological Exam: Not Done Psychiatric Exam Psychiatric Exam: Normal Results Hemoglobin/Hematocrit: Hgb 9.5 g/dL (11.2-15.7) L 02/08/21 07:09 Hct 28.3 % (36.0-46.0) L 02/08/21 07:09 Abnormal Lab Findings: Abnormal Labs 02/05/21 02/06/21 02/06/21 18:08 18:30 18:30 WBC 11.36 H 14.23 H RBC 3.89 L Hgb 11.1 L Hct 33.0 L 33.8 L MPV 12.1 H 12.0 H Absolute Neutrophils 7.97 H 11.40 H Absolute Monocytes 0.83 H Anion Gap 12.4 H BUN 5 L Alkaline Phosphatase 162 H Albumin 2.7 L 02/08/21 02/08/21 00:20 07:09 WBC 20.93 H 18.60 H RBC 3.30 L 3.32 L Hgb 9.6 L 9.5 L Hct 28.3 L 28.3 L MPV 12.0 H 12.5 H Absolute Neutrophils 18.15 H 15.01 H Absolute Monocytes 1.15 H 1.15 H Anion Gap BUN Alkaline Phosphatase Albumin
[2021-02-10 00:18] VITALS: BP 128/82; PULSE 77; RESP 14; TEMP 36.5; O2SAT 96
[2021-02-10] MEDS: Acetaminophen 325 MG TAB 650 MG PO ×2 (06:06→12:28)
[2021-02-10] MEDS: Docusate Sodium 100 MG CAP PO (06:06)
[2021-02-10] MEDS: Ibuprofen 600 MG TAB PO ×2 (06:06→12:28)
[2021-02-10] MEDS: Levothyroxine 25 MCG TAB PO (06:07)
[2021-02-10 06:08] VITALS: BP 137/90; PULSE 84; RESP 16; TEMP 36.4; O2SAT 98
--- NOTE | 2021-02-10 08:32 | W.PM.OBDISCH ---
Date of service: 02/10/21 Time of Service: 08:33 DS: Diagnosis Discharge Diagnosis (1) Status post primary low transverse section: Status: Acute Discharge Plan Disposition Patient Disposition: HOME Condition: Fair Discharge Details Reason For Visit: IUP AT 39 WEEK EGA GESTATIONAL DIABETES Admit Date/Time: 02/05/21 18:00 Admit Provider: Basia Lanza Attending Provider: Basia Lanza Primary Care Provider: Isadora Upton Hospital Course Hospital Course: Patient discharged home on postop day 3 after LTCS for arrest of labor. course complicated by uterine atony immediately after the delivery. The atony resovled with uterine massage, rectal Misoprostol and IV Oxytocin. Stable H/H for remainder of postop course. Pt has been attempting to breastfeed using nipple funez and pumping. Low breastmilk output as resulted in supplementing infant with formula. Pain well controlled with NSAIDs and limited administration of Percocet 5/325mg. She will be discharged with prescription for ibuprofen 600 mg every 6 hours and a total of 5 Percocet 5/325 1 tablet every 6 hours as needed for severe pain. Plan is to have her follow-up in the women's wellness office in 2 weeks for incision check. She will resume her preoperative medications with the exception of the insulin and Aspirin which have been discontinued. Home Meds and New Rx's Prescriptions: Discontinued Novolin N Flexpen 100 unit/mL (3 mL) insulin pen 4 unit subcut QPM RF: 0 aspirin 81 mg tablet,delayed release (DR/EC) 81 mg PO DAILY RF: 0 No Action prenat.vits,jimmy,cyu-kuqr-ikill Tablet 1 tab PO DAILY RF: 0 (DME) FreeStyle [place] 14 Day Sensor Kit See Rx Instructions .ROUTE .MEDSUPPLY Qty: 1 RF: 6 (DME) FreeStyle [place] 14 Day [place] Misc See Rx Instructions .ROUTE .MEDSUPPLY Qty: 1 RF: 0 (DME) blood-glucose meter [FreeStyle Lite Meter] Kit See Rx Instructions .ROUTE .MEDSUPPLY Qty: 1 RF: 0 ferrous sulfate 27 mg iron tablet 27 mg PO DAILY Qty: 60 RF: 2 (DME) FreeStyle Lite Strips Strip See Rx Instructions .ROUTE .MEDSUPPLY Qty: 100 RF: 4 (DME) lancets [FreeStyle Lancets] 28 gauge misc See Rx Instructions .ROUTE .MEDSUPPLY Qty: 100 RF: 4 levothyroxine 50 mcg capsule 25 mcg PO DAILY Qty: 90 RF: 3 sertraline 50 mg tablet 50 mg PO DAILY Qty: 90 RF: 3 oxycodone-acetaminophen [Percocet] 5-325 mg tablet 1 tab PO Q6H MDD 4 PRN (Reason: pain) Qty: 5 RF: 0 ibuprofen 600 mg tablet 600 mg PO Q6H PRN (Reason: pain) Qty: 45 RF: 0 Discharge Instructions Additional Instructions: Continue to pump breastmilk after putting [place] breast using the nipple shield. How the center at with any concerns or questions regarding breast-feeding Stand Alone Forms: BC Instructions, BC Discharge Instruc Activity:: Activity as Tolerated Equipment/Supplies:: No Equipment Needed Diet:: As Tolerated Discharge Orders Discharge Orders: Discharge Order (Routine); Ordered 02/10/21 Ordered By: Basia Lanza OB:DEMAR Summary Summary Episiotomy Description: None Laceration Description: None Laceration Extension: N/A Contraception Discussed Contraception Discussed: No, Scott Infant Gender-Baby A: Male weight: 7 lb 6.873 oz Status at Discharge Functional status at discharge: independent ambulation Overall status at discharge: patient is progressing back to baseline Mental Status: mental status grossly normal Speech and Movement: speech and movement normal Mood: congruent mood Affect: normal affect Exam Physical Exam Vital signs: Temp Pulse Resp BP Pulse Ox 97.5 F L 84 16 137/90 98 02/10/21 06:08 02/10/21 06:08 02/10/21 06:08 02/10/21 06:08 02/10/21 06:08 Vital Signs Reviewed: Yes Narrative: Postop day 3 LTCS for arrest of labor. course complicated by uterine atony immediately after the delivery. The atony resovled with uterine massage, rectal Misoprostol and IV Oxytocin. Stable H/H for remainder of postop course. Pt has been attempting to breastfeed using nipple funez and pumping. Low breastmilk output as resulted in supplementing infant with formula. Pain well controlled with NSAIDs. Pt required one tablet of Percocet 5/325mg last night Constitutional Constitutional: no acute distress HEENT Exam HEENT Exam: Not Done Neck Exam Neck Exam: Normal Respiratory Exam Respiratory Exam: Normal Cardiovascular Exam Cardiovascular Exam: Normal Abdominal Exam Abdomen: Tender Comments: At incision site. Fundal Exam Fundus: Below Umbilicus and Firm Rectal Exam Rectal Exam: Not Done Extremities Exam Extremity Exam: Normal Back/Spine/Pelvis Exam Back Exam: Not Done Skin Exam Skin Exam: Normal Neurological Exam Neurological Exam: Not Done Psychiatric Exam Psychiatric Exam: Normal [facility] Medical History Anxiety disorder, unspecified Arrested labor GBS (group B Streptococcus carrier), +RV culture, currently Gestational diabetes 11/23/20. Diagnosed 32 weeks Novolin and 4 units at bedtime. Major depressive disorder, recurrent episode, unspecified Marijuana use Is trying to reduce use but has not been able to quit use altogether. Her goal is to quit entirely by the end of Sep 2020. Still smoking 1-2 bowls daily for appetite stimulation and sleep and slowing racing thoughts as of 11/28/2020 atony of uterus with hemorrhage hemorrhage of vagina Smoker Motivated to quit, has switched to vaping, is currently using 0% nicotine. Smoked Cigs for 12 yrs. Quit 06/13/20 Surgical History (Updated 02/10/21 @ 08:50 by Basia Lanza MD) Status post primary low transverse section 02/07/2021. Dawson 7lb NicolasozDenis Kwong. Family History (Updated 11/28/20 @ 11:04 by Soha Diallo MD) Mother Mental health problem reports by mother of multiple diagnoses but the specific diagnoses mother reports are not reliable per Mare. H/O: hysterectomy Social History (Updated 02/03/21 @ 17:47 by Basia Lanza MD) Smoking/Tobacco Use Status: Current every day Smokeless tobacco user: other Quit status: considering quitting Second Hand Exposure: No Counseling given: other Smoking risk assessment performed?: Yes Alcohol Intake: never Details: 07/27/20 stopped with knowledge of al Drug use: Never Substance use type: marijuana Counseling given: Yes (Would like to quit until after the baby is born) Counseling provided: other Details: 07/27/20 given info on cessation. 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: Yes Female Reproductive History Menstrual control method: none History History 2 Para 0 Hx # Term Pregnancies 0 Multiple births 0 Hx # Pregnancies 0 Ectopic pregnancies 0 AB induced 0 Hx Number of Living Children 0 AB spontaneous 1 DS: Data Vitals/I&O Vitals and I&O: Vital Signs Temperature 97.5 F L 02/10/21 06:08 Temperature Source Oral 02/08/21 16:39 Pulse 84 02/10/21 06:08 Pulse Rhythm Regular 02/10/21 00:19 Respiratory Rate 16 02/10/21 06:08 Blood Pressure 137/90 02/10/21 06:08 Blood Pressure Mean 105 02/10/21 06:08 Pulse Oximetry 98 02/10/21 06:08 Oxygen Delivery Method Room Air 02/08/21 16:39 Oxygen Flow Rate 0 02/08/21 16:39 Pain Level 4 02/10/21 06:08 Comment 02/08/21 04:25 Intake & Output 02/09/21 02/09/21 02/10/21 11:59 23:59 11:59 Intake Total 900 / 900 500 / 500 Output Total 600 / 600 Balance 300 / 300 500 / 500 Intake: Oral 900 / 900 500 / 500 Output: Urine 600 / 600 Other: Urine Color Yellow Pale Pale Yellow Yellow Urine Appearance Clear Clear Urine Odor None None Comment void in toilet Voiding Methods Toilet Toilet Toilet
[2021-02-10 09:30] VITALS: BP 134/89; PULSE 89; RESP 14; TEMP 36.8; O2SAT 98
[2021-02-10] MEDS: Sertraline 50 MG TAB PO (09:52)
== END 2021-02-10 12:45 | disposition home or self-care (01) | DRG 787 ==
PROVIDERS: Obstetrics & Gynecology; Admitting Provider Obstetrics & Gynecology Gynecology; PCP Nurse Practitioner; Visit Provider Obstetrics & Gynecology Gynecology
PROC: (CPT 59514; principal; 2021-02-07 17:40)
PROC: (CPT 59514; 2021-02-07 17:40)
DX: O24.414 Gestational diabetes mellitus in pregnancy, insulin controlled (principal); O72.1 Other immediate postpartum hemorrhage; O99.324 Drug use complicating childbirth; Z37.0 Single live birth; Z3A.39 39 weeks gestation of pregnancy; O99.824 Streptococcus B carrier state complicating childbirth; O99.284 Endocrine, nutritional and metabolic diseases complicating childbirth; E03.9 Hypothyroidism, unspecified; F12.90 Cannabis use, unspecified, uncomplicated; O99.344 Other mental disorders complicating childbirth; F32.9 Major depressive disorder, single episode, unspecified; F41.9 Anxiety disorder, unspecified; O99.334 Smoking (tobacco) complicating childbirth; F17.210 Nicotine dependence, cigarettes, uncomplicated; O61.0 Failed medical induction of labor; O62.1 Secondary uterine inertia; Z20.822 Contact with and (suspected) exposure to COVID-19
CPT/HCPCS: 59514; 36415; 80053; 82947; 85027; 86850; 86900; 86901; 87635; 59200; 85025; J0456; J0690; J1100; J2001; J2405; J2540; J3010; J3490

== ENCOUNTER 2021-03-29 17:22 | Outpatient (REF) | payer MEDICAID, SELFPAY | END 2021-03-29 17:23 | disposition home or self-care (01) | LOC: LBN 17:22 | PROVIDERS: PCP Nurse Practitioner; Visit Provider Obstetrics & Gynecology | DX: N89.8 Other specified noninflammatory disorders of vagina (principal) | CPT/HCPCS: 87480; 87510; 87660 ==

== ENCOUNTER 2021-04-11 03:24 | Outpatient (CLI) | payer MEDICAID, SELFPAY ==
[2021-04-11 10:45] LABS: GTT Comment See Comments
== END 2021-04-11 03:25 | disposition home or self-care (01) ==
PROVIDERS: PCP Nurse Practitioner; Visit Provider Obstetrics & Gynecology
DX: Z86.32 Personal history of gestational diabetes (principal)
CPT/HCPCS: 36415; 82951

== ENCOUNTER 2021-05-19 10:53 | Emergency (ER) | payer MEDICAID, SELFPAY ==
[2021-05-19 10:57] VITALS: BP 111/68; PULSE 72; RESP 16; TEMP 36.5; O2SAT 99
--- NOTE | 2021-05-19 11:06 | W.ED.GENAD ---
Discharge Plan Disposition Patient Disposition: HOME Condition: Improving Discharge Details Clinical Impression: Lumbago Primary Care Provider: Isadora Upton ED Provider: Jean Mcneil Home Meds and New Rx's Prescriptions: New prednisone 50 mg tablet 50 mg PO DAILY 5 Days Qty: 5 RF: 0 hydrocodone-acetaminophen 5-325 mg tablet 1 tab PO Q6H PRN (Reason: pain) Qty: 7 RF: 0 Continued levothyroxine 50 mcg capsule 25 mcg PO DAILY Qty: 90 RF: 3 sertraline 100 mg tablet 100 mg PO DAILY Qty: 90 RF: 1 cetirizine 10 mg tablet 10 mg PO DAILY PRN (Reason: allergy symptoms) Qty: 30 RF: 2 bupropion HCl [Wellbutrin XL] 300 mg tablet extended release 24 hr 300 mg PO QAM Qty: 30 RF: 3 ibuprofen 600 mg tablet 600 mg PO Q6H PRN (Reason: pain) Qty: 45 RF: 0 Discharge Instructions Instructions: Low Back Strain (ED) Additional Instructions: Remove Lidoderm patch in 12 hours time, additional patches are available [id number]. Continue ibuprofen as needed for pain. May use the provided hydrocodone with Tylenol if needed for severe or breakthrough pain. Please take prednisone as prescribed. Return to the ER for increasing pain, change to bowel or bladder function, weakness or numbness of the legs, or any other acute concerns. Medical Decision Making 31-year-old female with previous history of slipped disc, states she bent over to product picker her child and felt immediate pain in her lumbar region that now radiates to right buttock when walking. No numbness or weakness. She is not had change in bowel or bladder function. She has otherwise recently been well. Patient's vital signs are reassuring, she has no neurologic deficits on exam. Differential diagnosis includes slipped disc, lumbar go, radicular pain. Patient referred for x-ray to ensure normal alignment and no underlying cyst or occult fractures. She is given oral analgesic and Lidoderm patches applied. X-ray unremarkable for acute process. Patient improving with medications. Will place her on a burst of prednisone, ongoing use of Lidoderm patch if needed, with ibuprofen for pain and hydrocodone if needed for severe/breakthrough pain. Patient was consented for the use of narcotic. HPI General Mode of arrival: ambulatory. Date/Time Provider Initiated Documentation: 05/19/21 10:54. Limitations to Documentation: no limitations. Information obtained by: patient. History of Present Illness 31 year old F presents to the emergency department with the chief complaint of Back pain after bending over, described as moderate, and is localized to the back. Patient extremity. Patient started experiencing this hour(s) and it has been constant. No relieving factors improve symptom(s), No exacerbating factors reported . Patient notes denies weakness. Related Data Home Medications Medication Instructions Recorded Confirmed levothyroxine 50 mcg capsule 25 mcg PO DAILY #90 cap 12/29/20 05/19/21 ibuprofen 600 mg tablet 600 mg PO Q6H PRN #45 tab 02/10/21 05/19/21 bupropion HCl 300 mg 24 hr tablet, 300 mg PO QAM #30 tab 04/05/21 05/19/21 extended release cetirizine 10 mg tablet 10 mg PO DAILY PRN #30 tab 04/05/21 05/19/21 sertraline 100 mg tablet 100 mg PO DAILY #90 tab 05/03/21 05/19/21 hydrocodone-acetaminophen 1 tab PO Q6H PRN #7 tab 05/19/21 prednisone 50 mg PO DAILY 5 Days #5 tab 05/19/21 Previous Rx's Medication Instructions Recorded levothyroxine 50 mcg capsule 25 mcg PO DAILY #90 cap 12/29/20 ibuprofen 600 mg tablet 600 mg PO Q6H PRN #45 tab 02/10/21 bupropion HCl 300 mg 24 hr tablet, 300 mg PO QAM #30 tab 04/05/21 extended release cetirizine 10 mg tablet 10 mg PO DAILY PRN #30 tab 04/05/21 sertraline 100 mg tablet 100 mg PO DAILY #90 tab 05/03/21 hydrocodone-acetaminophen 1 tab PO Q6H PRN #7 tab 05/19/21 prednisone 50 mg PO DAILY 5 Days #5 tab 05/19/21 Allergies Allergy/AdvReac Type Severity Reaction Status Date / Time No Known Allergies Allergy Verified 05/19/21 11:04 General Stated Complaint: Nk/Back Pain KATHY: 4 Review of Systems Narrative: No change to bowel/bladder habits, no motor weakness or numbness. 8 systems reviewed and otherwise neg PFSH Medical History Anxiety disorder, unspecified Arrested labor GBS (group B Streptococcus carrier), +RV culture, currently Gestational diabetes 11/23/20. Diagnosed 32 weeks Novolin and 4 units at bedtime. Hx gestational diabetes Hypothyroid in , antepartum IUD surveillance Major depressive disorder, recurrent episode, unspecified Marijuana use Is trying to reduce use but has not been able to quit use altogether. Her goal is to quit entirely by the end of Sep 2020. Still smoking 1-2 bowls daily for appetite stimulation and sleep and slowing racing thoughts as of 11/28/2020 atony of uterus with hemorrhage hemorrhage of vagina Smoker Motivated to quit, has switched to vaping, is currently using 0% nicotine. Smoked Cigs for 12 yrs. Quit 06/13/20 Surgical History (Updated 05/01/21 @ 10:33 by Savana Clancy DO) Status post primary low transverse section 02/07/2021. Dawson Kwong. Family History Mother Mental health problem reports by mother of multiple diagnoses but the specific diagnoses mother reports are not reliable per Mare. 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 [employer] Pets and animals: Yes Pets and animals: dog(s) Current gender identity: female What is your relationship status?: living with partner How often do you talk on the phone with friends or family?: three or more times per week Panel score (0-1 are the most socially isolated patients): 2 What type of physical activity do you participate in: walking Frequency: daily Drive intox or ride w/intox 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 Date GA/Weeks # Outcome Route Wgt Sex Labor Lgth Anesthesia Location Prov Complic 02/07/21 39 No Successful 3369.908 g Male local Savana Clancy DO other Delivery Date: 02/07/21 postoperative uterine atony. Tameka Gregory LPN Exam Narrative Exam Narrative: GEN: awake, alert, oriented 3. Pleasant, well groomed, interactive. HEAD: Normocephalic, atraumatic ENT: Mucous membranes moist, oropharynx unremarkable, External ear exam unremarkable EYES: PERRL, EOMI NECK: Full ROM, no NADIA, no menigismus CHEST/RESP: Nontender, clear to auscultation bilateral, no wheeze/rhonchi/rales CARDIOVASCULAR: RRR, no murmur, rub shonna. 2+ Rad pulse bilateral Back: Tender in the midline over approximately L3-L5. No step-off or deformity. EXT: Full ROM, no edema, no rash. Normal sensation throughout including saddle distribution. Motor graded 5 out of 5. Narrow based gait with good heel strike. Neuro: Grossly normal neurologic exam, conversant, interactive. Psych: Speech fluent, thoughts congruent, affect normal Course Vital Signs Vital signs: Vital Signs Temperature 36.5 C 05/19/21 10:57 Pulse 72 05/19/21 10:57 Respiratory Rate 16 05/19/21 10:57 Blood Pressure 111/68 05/19/21 10:57 Pulse Oximetry 99 05/19/21 10:57 Temperature 36.5 C 05/19/21 10:57 Temperature Source Temporal Artery Scan 05/19/21 10:57 Pulse 72 05/19/21 10:57 Respiratory Rate 16 05/19/21 10:57 Respiratory Effort Non-Labored 05/19/21 11:02 Blood Pressure 111/68 05/19/21 10:57 Blood Pressure Position Sitting 05/19/21 10:57 Pulse Oximetry 99 05/19/21 10:57 Oxygen Delivery Method Room Air 05/19/21 10:57 Oxygen Flow Rate 0 05/19/21 10:57 Pain Level 8 05/19/21 10:57
--- NOTE | 2021-05-19 11:15 | DI.RAD_ITS ---
Exam(s) XR LUMBAR SPINE AP, LAT EXAM: XR LUMBAR SPINE AP, LAT CLINICAL HISTORY: Low back pain. TECHNIQUE: 2D digital imaging was performed. COMPARISON: No exams were available for comparison FINDINGS: BONES: No fracture or destructive lesion. Vertebral bodies are unremarkable. No facet hypertrophy acosta ntified. DISKS: Intervertebral disc spaces are maintained. ALIGNMENT: Lumbar spinal alignment is within normal limits. SOFT TISSUE: Normal. There is an IUD in the pelvis. IMPRESSION: No acute abnormality. DATA REPOSITORY: RADIATION DOSE DELIVERED:
[2021-05-19] MEDS: HYDROcodone 5/Acetaminophen 325 TAB PO (11:21)
[2021-05-19] MEDS: Lidocaine 5% Patch 1 PATCH TP (11:21)
[2021-05-19] MEDS: predniSONE 40 MG, predniSONE 10 MG 50 MG PO (12:22)
[2021-05-19 12:28] VITALS: BP 106/64; PULSE 76; RESP 15; O2SAT 99
--- NOTE | 2021-05-19 13:07 | DI.VRAD_ITS ---
PROCEDURE INFORMATION: Exam: XR Lumbosacral Spine Exam date and time: 05/19/2021 11:16 AM Age: 31 years old Clinical indication: Low back pain TECHNIQUE: Imaging protocol: XR of the lumbosacral spine. Views: 2 or 3 views. COMPARISON: MR lumbar spine wo 08/04/2018 4:27 PM FINDINGS: Bones/joints: There is mild straightening of lumbar lordosis. Vertebral body heights are within normal limits. The alignment is preserved. Disc spaces are normal. Soft tissues: No prevertebral or posterior paraspinal soft tissue swelling. IMPRESSION: No acute abnormality. Dictated and Authenticated by: Joe Tejeda MD. Ordering:AMANDA Pena MD
== END 2021-05-19 12:31 | disposition home or self-care (01) ==
PROVIDERS: Emergency Provider Emergency Medicine; PCP Nurse Practitioner
DX: M54.5 Low back pain (principal)
CPT/HCPCS: 99283; 72100; J7512

== ENCOUNTER 2021-08-17 02:12 | Outpatient (CLI) | payer MEDICAID, SELFPAY ==
[2021-08-17 14:18] LABS: Abs Immature Grans 0.02 10^3/uL (0.0-0.06); Absolute Basophil Count 0.05 10^3/uL (0.0-0.2); Absolute Eosinophil Count 0.64 10^3/uL (0.0-0.7); Absolute Monocyte Count 0.55 10^3/uL (0.1-0.8); Absolute Neutrophil Count 3.82 10^3/uL (1.2-6.7); Basophils % 0.7; Eosinophils % 8.3; HCT 39.4 % (36.0-46.0); Immature Grans % 0.3; Lymphocytes % 33.9; MCV 81.9 fL (80-95); MPV 11.4 fL (8.0-11.0); Monocytes % 7.2; Neutrophils % 49.6; Nucleated RBC 0 %; Platelet Count 220 10^3/uL (130-400); RBC 4.81 10^6/uL (3.93-5.22); RDW 13.7 % (11.7-14.6); RDW-SD 40.8 fL; WBC 7.68 10^3/uL (4.4-10.8)
[2021-08-17 14:32] LABS: Hemoglobin A1C 5.5 % (<5.7)
[2021-08-17 15:07] LABS: HCG Qual (Serum) Negative
[2021-08-17 15:24] LABS: ALT 17 U/L (14-59); AST 14 U/L (15-37); Albumin 3.9 g/dL (3.4-5.0); Alkaline Phosphatase 115 U/L (46-116); Anion Gap 9.8 mmol/L (3-11); BUN 15 mg/dL (7-18); Bilirubin, Total 0.3 mg/dL (0.2-1.0); CO2 27.2 mmol/L (21.0-32.0); CREATININE 1.1 mg/dL (0.55-1.02); Calcium 9.1 mg/dL (8.5-10.1); Calculated LDL 139 mg/dL (<100); Chloride 103 mmol/L (98-107); Cholesterol 225 mg/dL (<200); Estimated GFR 58.72 (mL/min/1.73m2); Ferritin 61 ng/mL (8-252); Glucose 106 mg/dL (74-106); HDL Cholesterol 44 mg/dL (40-60); Potassium 4.4 mmol/L (3.5-5.1); Sodium 140 mmol/L (136-145); Total Protein 7.5 g/dL (6.4-8.2); Triglyceride 214 mg/dL (<150); Vitamin B12 346 pg/mL (193-986)
[2021-08-17 16:26] LABS: FREE T4 0.95 ng/dL (0.76-1.46)
== END 2021-08-17 02:13 | disposition home or self-care (01) ==
LOC: LBO 02:12
PROVIDERS: PCP Nurse Practitioner; Visit Provider Psychiatry & Neurology Psychiatry
DX: F34.1 Dysthymic disorder (principal)
CPT/HCPCS: 36415; 80053; 80061; 82607; 82728; 83036; 84439; 84443; 84703; 85025

== ENCOUNTER 2021-12-17 10:32 | Outpatient (REF) | payer MEDICAID, SELFPAY ==
--- NOTE | 2021-12-17 10:20 | PAPFT_PTH ---
PATIENT: Kelly Adams LOC: [facility] U#:[id number] AGE/SX: 31/F ROOM: RE12/17/[address]: Savana Clancy DO : 1990 BED: DIS: 12/17/2021 SPEC #: [id number] RECD: 12/17/21 12:51 STATUS: ANURAG REQ #: [id number] TORO: 12/17/21 10:[address]: Savana Clancy DEPT: [facility] Cytology RECD BY: Saranya Ruiz ENTERED: 12/17/21 12:51 SP TYPE: PAPFT GT DR: Isadora Upton APRN Tissues: 1 - CX/ENDOCX FOR PAP SMEARS Procedures: PAP THIN PREP/[facility] Screening Comments: [id number]
== END 2021-12-17 10:33 | disposition home or self-care (01) ==
LOC: LBN 10:32
PROVIDERS: PCP Nurse Practitioner; Visit Provider Obstetrics & Gynecology
DX: Z12.4 Encounter for screening for malignant neoplasm of cervix (principal)
CPT/HCPCS: 88142

== ENCOUNTER 2022-02-11 16:30 | Outpatient (REF) | payer MEDICAID, SELFPAY ==
[2022-02-13 13:11] LABS: COVID-19 RT-PCR UVMMC Result Negative (Negative)
== END 2022-02-11 16:31 | disposition home or self-care (01) ==
LOC: LBN 16:30
PROVIDERS: PCP Nurse Practitioner; Visit Provider Nurse Practitioner Adult Health
DX: Z20.822 Contact with and (suspected) exposure to COVID-19 (principal); J02.9 Acute pharyngitis, unspecified; J84.89 Other specified interstitial pulmonary diseases; R05.8 Other specified cough
CPT/HCPCS: U0003

== ENCOUNTER 2022-07-22 02:36 | Outpatient (CLI) | payer MEDICAID, SELFPAY ==
[2022-07-22 15:55] LABS: TSH (W/Ref FT4) 1.88 uIU/mL (0.36-3.74)
== END 2022-07-22 02:37 | disposition home or self-care (01) ==
LOC: LBO 02:36
PROVIDERS: PCP Nurse Practitioner; Visit Provider Nurse Practitioner
DX: E03.9 Hypothyroidism, unspecified (principal)
CPT/HCPCS: 36415; 84443

== ENCOUNTER 2022-09-22 20:14 | Emergency (ER) | payer MEDICAID, SELFPAY ==
[2022-09-22 20:19] VITALS: BP 134/69; PULSE 92; RESP 26; TEMP 36.9; O2SAT 97
--- NOTE | 2022-09-22 20:40 | W.ED.GENAD ---
Discharge Plan Disposition Patient Disposition: Home Condition: Improving Discharge Details Clinical Impression: Back pain Primary Care Provider: Isadora Upton ED Provider: Paolo Luevano Home Meds and New Rx's Prescriptions: New cyclobenzaprine 5 mg tablet 5 mg PO QHS PRN (Reason: muscle spasm) Qty: 10 0RF lidocaine [Lidoderm] 5 % adhesive patch,medicated 1 patch topical DAILY PRNQty: 15 0RF Rx Instructions: leave on most painful area for up to 12 hrs No Action Mirena 20 mcg/24 hours (7 yrs) 52 mg intrauterine device 1 insert intrauterine ONCE Rx Instructions: as a single dose bupropion HCl [Wellbutrin XL] 300 mg tablet extended release 24 hr 300 mg PO QAM Qty: 90 3RF cetirizine 10 mg tablet 10 mg PO DAILY PRN (Reason: allergy symptoms) Qty: 90 3RF trazodone 50 mg tablet 50 mg PO QHS PRN (Reason: sleep) Qty: 90 3RF hydroxyzine HCl 25 mg tablet 25 mg PO TID PRN (Reason: anxiety) Qty: 30 6RF ibuprofen 600 mg tablet 600 mg PO Q6H PRN (Reason: pain) Qty: 45 0RF levothyroxine 50 mcg tablet 25 mcg PO DAILY Qty: 45 3RF Discharge Instructions Instructions: Back Pain (ED) Additional Instructions: Please follow-up with your primary care physician. Please use medications as needed as prescribed. Medical Decision Making 32-year-old female history of prior back injury, presents after developing back pain in the setting of squatting to lower her son into the tub, fell backwards on her buttocks, was able to get her self up ambulatory without assistance, strength intact, no midline spinal tenderness crepitus or deformity, no bowel or bladder symptoms. Likely back strain versus bulging disc, low suspicion for spinal fracture or cauda equina given history and physical. Trial of anti-inflammatory analgesia. Close reassessment likely home with follow-up. 21: 42 patient feeling much better. Ambulatory no acute distress. Sign Out No HPI General Date/Time Provider Initiated Documentation: 09/22/22 20:16. HPI Narrative: 32-year-old female history of prior back injury with possible bulging disc in the past, presents with lower back pain that began while she was squatting lowering her son into the tub, fell backwards onto her buttocks, has been able to walk since this event, no bowel or bladder issues. Persistent lower back discomfort. No radiation into the legs. No numbness or tingling. Related Data Home Medications Medication Instructions Recorded Confirmed ibuprofen 600 mg tablet 600 mg PO Q6H PRN pain #45 tabs 02/10/21 09/22/22 levonorgestrel 20 mcg/24 hours (8 1 insert intrauterine ONCE 12/17/21 09/22/22 yrs) 52 mg intrauterine device (Mirena) bupropion HCl 300 mg 24 hr tablet, 300 mg PO QAM #90 tabs 01/14/22 09/22/22 extended release (Wellbutrin XL) cetirizine 10 mg tablet 10 mg PO DAILY PRN allergy 01/14/22 09/22/22 symptoms #90 tabs levothyroxine 50 mcg tablet 25 mcg PO DAILY #45 tabs 01/14/22 09/22/22 hydroxyzine HCl 25 mg tablet 25 mg PO TID PRN anxiety #30 tabs 07/15/22 09/22/22 trazodone 50 mg tablet 50 mg PO QHS PRN sleep #90 tabs 07/15/22 09/22/22 cyclobenzaprine 5 mg tablet 5 mg PO QHS PRN muscle spasm #10 09/22/22 tabs lidocaine 5 % topical patch 1 patch topical DAILY PRN #15 ea 09/22/22 (Lidoderm) Previous Rx's Medication Instructions Recorded ibuprofen 600 mg tablet 600 mg PO Q6H PRN pain #45 tabs 02/10/21 bupropion HCl 300 mg 24 hr tablet, 300 mg PO QAM #90 tabs 01/14/22 extended release (Wellbutrin XL) cetirizine 10 mg tablet 10 mg PO DAILY PRN allergy 01/14/22 symptoms #90 tabs levothyroxine 50 mcg tablet 25 mcg PO DAILY #45 tabs 01/14/22 hydroxyzine HCl 25 mg tablet 25 mg PO TID PRN anxiety #30 tabs 07/15/22 trazodone 50 mg tablet 50 mg PO QHS PRN sleep #90 tabs 07/15/22 cyclobenzaprine 5 mg tablet 5 mg PO QHS PRN muscle spasm #10 09/22/22 tabs lidocaine 5 % topical patch 1 patch topical DAILY PRN #15 ea 09/22/22 (Lidoderm) Allergies Allergy/AdvReac Type Severity Reaction Status Date / Time No Known Allergies Allergy Verified 09/22/22 20:23 General Stated Complaint: Nk/Back Pain KATHY: 4 Review of Systems Narrative: Review of Systems Constitutional: negative Eyes: negative ENT: negative Cardiovascular: negative Respiratory: negative Gastrointestinal: negative : negative Musculoskeletal: Back pain Skin: negative Neurologic: negative Psych: negative PFSH All Active Problems (Updated 09/22/22 @ 21:42 by Paolo Luevano MD) Back pain (Acute) Hypothyroidism (Chronic) Mild obstructive sleep apnea (Acute ~04/2021) Sleep study 05/25/21 Lumbago (Acute) IUD surveillance (Acute) Obesity (Chronic) ADHD (attention deficit hyperactivity disorder), combined type (Acute) Generalized anxiety disorder (Acute) Major depressive disorder, recurrent episode, unspecified (Acute) Post-traumatic stress disorder (Acute) Marijuana use (Acute ~06/18/21) Is trying to reduce use but has not been able to quit use altogether. Her goal is to quit entirely by the end of Sep 2020. Still smoking 1-2 bowls daily for appetite stimulation and sleep and slowing racing thoughts as of 11/28/2020 Smoker (Acute) Motivated to quit, has switched to vaping, is currently using 0% nicotine. Smoked Cigs for 12 yrs. Quit 06/13/20 Hx gestational diabetes (Acute) Daytime somnolence (Acute) Snoring (Acute) Medical History Anxiety disorder, unspecified Arrested labor GBS (group B Streptococcus carrier), +RV culture, currently Gestational diabetes 11/23/20. Diagnosed 32 weeks Novolin and 4 units at bedtime. Hypothyroid in , antepartum atony of uterus with hemorrhage hemorrhage of vagina Surgical History Status post primary low transverse section 02/07/2021. Dawson Kwong. Family History Mother Mental health problem reports by mother of multiple diagnoses but the specific diagnoses mother reports are not reliable per [facility]. 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 [employer] Pets and animals: Yes Pets and animals: dog(s) Current gender identity: female What is your relationship status?: living with partner How often do you talk on the phone with friends or family?: three or more times per week Panel score (0-1 are the most socially isolated patients): 2 What type of physical activity do you participate in: walking Frequency: daily Drive 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 Date GA/Weeks # Preg Succ Route Wgt Sex Labor Lgth Anesthesia Location [facility] 02/07/21 39 No 3369.908 g Male local Savana Clancy DO other Delivery Date: 02/07/21 Last Updated by: Tameka Gregory LPN postoperative uterine atony. Exam Narrative Exam Narrative: Physical Examination General: alert, awake, cooperative, resting comfortably, no acute distress HEENT: normocephalic, atraumatic; PERRL, EOM intact, conjunctiva normal; no nasal discharge; moist mucous membranes, oral and pharyngeal mucosa normal, tolerating secretions Neck: supple, trachea midline; full ROM Chest: normal to inspection Respiratory: normal respiratory effort, speaking in full sentences, clear to auscultation, no wheezing, rales or rhonchi Cardiac: regular rate, regular rhythm, S1S2 intact, no murmurs rubs or gallops GI: abdomen soft, non-tender, non-distended; no palpable mass or hepatosplenomegaly Back: No midline spinal tenderness, no deformity crepitus or step-offs Skin: no lesions, rashes or trauma appreciated Neuro: AAOx3, normal speech, moving all extremities; strength in lower extremities intact, ambulatory without assistance Psych: Appropriate mood and affect Course Vital Signs Vital signs: Vital Signs Temperature 36.9 C 09/22/22 20:19 Pulse 92 H 09/22/22 20:19 Respiratory Rate 26 H 09/22/22 20:19 Blood Pressure 134/69 09/22/22 20:19 Pulse Oximetry 97 09/22/22 20:19 Temperature 36.9 C 09/22/22 20:19 Temperature Source Oral 09/22/22 20:19 Pulse 92 H 09/22/22 20:19 Respiratory Rate 26 H 09/22/22 20:19 Respiratory Effort 09/22/22 20:19 Blood Pressure 134/69 09/22/22 20:19 Blood Pressure Position Sitting 09/22/22 20:19 Pulse Oximetry 97 09/22/22 20:19 Oxygen Delivery Method Room Air 09/22/22 20:19 Oxygen Flow Rate 0 09/22/22 20:19 Pain Level 10 09/22/22 20:19
[2022-09-22] MEDS: Cyclobenzaprine 10 MG TAB PO (20:51)
[2022-09-22] MEDS: Ketorolac 15 MG/ML VIAL IM (20:51)
[2022-09-22] MEDS: Lidocaine 5% Patch 1 PATCH TP (20:51)
[2022-09-22] MEDS: Dexamethasone 4 MG TAB PO (20:51)
== END 2022-09-22 21:51 | disposition home or self-care (01) ==
PROVIDERS: Emergency Provider Emergency Medicine; PCP Nurse Practitioner
DX: M54.50 Low back pain, unspecified (principal); W18.39XA Other fall on same level, initial encounter
CPT/HCPCS: 96372; 99284; 99283; J1885; J8540

== ENCOUNTER 2023-06-02 10:32 | Emergency (ER) | payer MEDICAID, SELFPAY ==
[2023-06-02 10:36] VITALS: BP 116/77; PULSE 70; RESP 18; TEMP 36.7; O2SAT 100
--- NOTE | 2023-06-02 11:05 | ED.GENADUL_ITS ---
Discharge Plan Disposition Patient Disposition: Home Discharge Details Clinical Impression: Acute lumbar back pain Primary Care Provider: Isadora Upton ED Provider: Ahmet Cabrera Home Meds and New Rx's Prescriptions: New diclofenac potassium 50 mg tablet 50 mg PO TID PRN (Reason: pain) Qty: 15 0RF methocarbamol 500 mg tablet 500 mg PO TID PRN (Reason: Muscle spasms) Qty: 10 0RF Continued Mirena 20 mcg/24 hours (7 yrs) 52 mg intrauterine device 1 insert intrauterine ONCE Rx Instructions: as a single dose bupropion HCl [Wellbutrin XL] 300 mg tablet extended release 24 hr 300 mg PO QAM Qty: 90 3RF cetirizine 10 mg tablet 10 mg PO DAILY PRN (Reason: allergy symptoms) Qty: 90 3RF trazodone 50 mg tablet 50 mg PO QHS PRN (Reason: sleep) Qty: 90 3RF hydroxyzine HCl 25 mg tablet 25 mg PO TID PRN (Reason: anxiety) Qty: 30 6RF levothyroxine 50 mcg tablet 25 mcg PO DAILY Qty: 45 3RF lidocaine [Lidoderm] 5 % adhesive patch,medicated 1 patch topical DAILY PRNQty: 15 0RF Rx Instructions: leave on most painful area for up to 12 hrs Held ibuprofen 600 mg tablet 600 mg PO Q6H PRN (Reason: pain) Qty: 45 0RF Hold Instructions: Until new prescribed pain medication has completed Discontinued cyclobenzaprine 5 mg tablet 5 mg PO QHS PRN (Reason: muscle spasm) Qty: 10 0RF Discharge Instructions Instructions: Back Pain (ED), Lower Back Exercises (ED) Additional Instructions: You may continue to take [id number] acetaminophen/Tylenol but do not take any further NSAIDs as this may interact with the prescription that you were given. Please use caution with the muscle relaxer as it may cause sedation. Please do not take with any alcohol or operate machinery including driving due to potential sedation. You may perform light activities as tolerated. Please refrain from any heavy lifting for the next 2 weeks. If you have any new or significant worsening of symptoms feel free to return the emergency department for reassessment otherwise follow-up with your primary care provider. Stand Alone Forms: Physical Therapy Referral, Work Release Referrals: Isadora Upton, GERARDO [Primary Care Provider] - (If not improving in the next couple weeks) Discharge Data Discharge Date/Time-TO BE ENTERED AT DEPARTURE: 06/02/23 11:17 Medical Decision Making Patient presenting to the emergency department for chief complaint of low back pain. Patient denies any injury or trauma, fever chills, changes in bowel or bladder function, IV drug use radiating pain numbness or tingling. Physical exam shows lower lumbar tenderness otherwise benign exam. Based upon review of systems and physical exam I feel that patient is at LOW risk for ABDOMINAL AORTIC ANEURYSM, CAUDA EQUINA SYNDROME, EPIDURAL MASS LESION, SPINAL STENOSIS, OR HERNIATED DISK CAUSING SEVERE STENOSIS, thus I consider the discharge disposition reasonable. Will prescribe patient NSAID and muscle relaxer and encourage activity modification. Patient does state that she has had pain like this in the past so we will give referral to physical therapy. We have discussed the diagnosis and risks, and we agree with discharging home to follow- up with their primary doctor. We also discussed returning to the Emergency Department immediately if new or worsening symptoms occur. We have discussed the symptoms which are most concerning (e.g., saddle anesthesia, urinary or bowel incontinence or retention, changing or worsening pain) that necessitate immediate return. Patient to otherwise follow-up with primary care provider if not improving. After discussion of diagnosis and plan of care patient has no further needs, questions, or concerns and states clear understanding to return to the emergency department for any worsening symptoms. This documentation was generated using [employer] dictation system, please disregard any oddities of phrase or misspellings. HPI General Mode of arrival: ambulatory . Date/Time Provider Initiated Documentation: 06/02/23 10:44 . Limitations to Documentation: no limitations . Information obtained by: patient, family and RN notes reviewed . History of Present Illness 33 year old F presents to the emergency department with the chief complaint of Low back pain, described as moderate and similar to prior episodes, Quality is described as aching and sharp, and is localized to the back. Patient reports no radiation. Patient started experiencing this day(s) (2) and it has been constant. Rest improves symptom(s), Movement worsens symptoms . Patient notes no other symptoms.. Patient did receive the following treatments prior to arrival, NSAID Related Data Home Medications Medication Instructions Recorded Confirmed ibuprofen 600 mg tablet 600 mg PO Q6H PRN pain #45 tabs 02/10/21 06/02/23 levonorgestrel 21 mcg/24 hours (8 1 insert intrauterine ONCE 12/17/21 06/02/23 yrs) 52 mg intrauterine device (Mirena) bupropion HCl 300 mg 24 hr tablet, 300 mg PO QAM #90 tabs 01/14/22 06/02/23 extended release (Wellbutrin XL) cetirizine 10 mg tablet 10 mg PO DAILY PRN allergy 01/14/22 06/02/23 symptoms #90 tabs levothyroxine 50 mcg tablet 25 mcg PO DAILY #45 tabs 01/14/22 06/02/23 hydroxyzine HCl 25 mg tablet 25 mg PO TID PRN anxiety #30 tabs 07/15/22 06/02/23 trazodone 50 mg tablet 50 mg PO QHS PRN sleep #90 tabs 07/15/22 06/02/23 lidocaine 5 % topical patch 1 patch topical DAILY PRN #15 ea 09/22/22 06/02/23 (Lidoderm) diclofenac potassium 50 mg tablet 50 mg PO TID PRN pain #15 tabs 06/02/23 methocarbamol 500 mg tablet 500 mg PO TID PRN Muscle spasms 06/02/23 #10 tabs Previous Rx's Medication Instructions Recorded ibuprofen 600 mg tablet 600 mg PO Q6H PRN pain #45 tabs 02/10/21 bupropion HCl 300 mg 24 hr tablet, 300 mg PO QAM #90 tabs 01/14/22 extended release (Wellbutrin XL) cetirizine 10 mg tablet 10 mg PO DAILY PRN allergy 01/14/22 symptoms #90 tabs levothyroxine 50 mcg tablet 25 mcg PO DAILY #45 tabs 01/14/22 hydroxyzine HCl 25 mg tablet 25 mg PO TID PRN anxiety #30 tabs 07/15/22 trazodone 50 mg tablet 50 mg PO QHS PRN sleep #90 tabs 07/15/22 lidocaine 5 % topical patch 1 patch topical DAILY PRN #15 ea 09/22/22 (Lidoderm) diclofenac potassium 50 mg tablet 50 mg PO TID PRN pain #15 tabs 06/02/23 methocarbamol 500 mg tablet 500 mg PO TID PRN Muscle spasms 06/02/23 #10 tabs Allergies Allergy/AdvReac Type Severity Reaction Status Date / Time No Known Allergies Allergy Verified 06/02/23 10:39 General Stated Complaint: Nk/Back Pain KATHY: 4 Review of Systems Constitutional Constitutional: Denies chills and Denies fever(s) Cardiovascular Cardiovascular: Denies chest pain and Denies dyspnea on exertion Respiratory Respiratory: Denies cough and Denies dyspnea on exertion Gastrointestinal Gastrointestinal: Denies abdominal pain, Denies change in bowel habits, Denies diarrhea, Denies nausea and Denies vomiting Genitourinary Genitourinary: Denies urinary incontinence Musculoskeletal Musculoskeletal: Reports as per HPI and Reports back pain Neurologic Neurologic: Denies sensory deficit PFSH All Active Problems Acute lumbar back pain (Acute) Hypothyroidism (Chronic) Mild obstructive sleep apnea (Acute ~04/2021) Sleep study 05/25/21 Lumbago (Acute) IUD surveillance (Acute) Obesity (Chronic) ADHD (attention deficit hyperactivity disorder), combined type (Acute) Generalized anxiety disorder (Acute) Major depressive disorder, recurrent episode, unspecified (Acute) Post-traumatic stress disorder (Acute) Marijuana use (Acute ~06/18/21) Is trying to reduce use but has not been able to quit use altogether. Her goal is to quit entirely by the end of Sep 2020. Still smoking 1-2 bowls daily for appetite stimulation and sleep and slowing racing thoughts as of 11/28/2020 Smoker (Acute) Motivated to quit, has switched to vaping, is currently using 0% nicotine. Smoked Cigs for 12 yrs. Quit 06/13/20 Hx gestational diabetes (Acute) Daytime somnolence (Acute) Snoring (Acute) Medical History Anxiety disorder, unspecified Arrested labor GBS (group B Streptococcus carrier), +RV culture, currently Gestational diabetes 11/23/20. Diagnosed 32 weeks Novolin and 4 units at bedtime. Hypothyroid in , antepartum atony of uterus with hemorrhage hemorrhage of vagina Surgical History Status post primary low transverse section 02/07/2021. Dawson Kwong. Family History Mother Mental health problem reports by mother of multiple diagnoses but the specific diagnoses mother reports are not reliable per Mare. 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 [employer] Pets and animals: Yes Pets and animals: dog(s) Current gender identity: female What is your relationship status?: living with partner How often do you talk on the phone with friends or family?: three or more times per week Panel score (0-1 are the most socially isolated patients): 2 What type of physical activity do you participate in: walking Frequency: daily Drive intox or ride w/intox 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 Date GA/Weeks # Preg Succ Route Wgt Sex Labor Lgth Anesth esia Location [facility] 02/07/21 39 No 3369.908 g Male local Mo Clancy DO other Delivery Date: 02/07/21 Last Updated by: Tameka Gregory LPN postoperative uterine atony. Exam Const General: cooperative and no acute distress Orientation: alert, awake and oriented x3 Neck Neck: normal visual inspection, full ROM and no meningeal signs Resp Effort & Inspection: normal respiratory effort Auscultation: clear to auscultation bilaterally Cardio Rate: regular rate Rhythm: regular rhythm Heart Sounds: S1 normal and S2 normal GI Palpation: no hepatosplenomegaly, no aortic enlargement, no masses and no pulsatile masses Back/Spine/Pelvis Thoracic/Lumbar Spine: pain with thoraco-lumbar ROM, paraspinal tenderness, thoraco-lumbar ROM limited, No thoracic spinal tenderness, lumbar spinal tenderness and No straight leg raise positive Pelvis: no pain with anterior-posterior compression and no pain with lateral compression Neuro General: patient alert, patient awake and patient oriented x3 DTR's: Rt Patellar: 2+, Lt Patellar: 2+, Rt Ankle: 2+ and Lt Ankle: 2+ Course Vital Signs Vital signs: Vital Signs Temperature 36.7 C 06/02/23 10:36 Pulse 70 06/02/23 10:36 Respiratory Rate 18 06/02/23 10:36 Blood Pressure 116/77 06/02/23 10:36 Pulse Oximetry 100 06/02/23 10:36 Temperature 36.7 C 06/02/23 10:36 Temperature Source Skin 06/02/23 10:36 Pulse 70 06/02/23 10:36 Respiratory Rate 18 06/02/23 10:36 Respiratory Effort Normal, Non-Labored 06/02/23 10:40 Blood Pressure 116/77 06/02/23 10:36 Blood Pressure Position Sitting 06/02/23 10:36 Pulse Oximetry 100 06/02/23 10:36 Oxygen Delivery Method Room Air 06/02/23 10:36 Oxygen Flow Rate 0 06/02/23 10:36 Pain Level 9 06/02/23 10:36
== END 2023-06-02 11:17 | disposition home or self-care (01) ==
PROVIDERS: Emergency Provider Nurse Practitioner Family; PCP Nurse Practitioner
DX: M54.50 Low back pain, unspecified (principal)
CPT/HCPCS: 99283; 99284

== ENCOUNTER 2023-06-24 09:58 | Outpatient (CLI) | payer MEDICAID, SELFPAY ==
[2023-06-24 09:29] LABS: Calculated LDL 91 mg/dL (<100); Cholesterol 151 mg/dL (<200); HDL Cholesterol 42 mg/dL (40-60); TSH (W/Ref FT4) 4.24 uIU/mL (0.36-3.74); Triglyceride 92 mg/dL (<150)
[2023-06-24 09:56] LABS: FREE T4 1.06 ng/dL (0.76-1.46)
== END 2023-06-24 09:59 | disposition home or self-care (01) ==
LOC: LBO 09:58
PROVIDERS: PCP Nurse Practitioner; Visit Provider Nurse Practitioner
DX: E03.9 Hypothyroidism, unspecified (principal); E78.5 Hyperlipidemia, unspecified
CPT/HCPCS: 36415; 80061; 84439; 84443

== ENCOUNTER 2023-08-08 23:17 | Emergency (ER) | payer MEDICAID, SELFPAY ==
[2023-08-08 23:22] VITALS: BP 128/82; PULSE 81; RESP 16; TEMP 36.7; O2SAT 99
--- NOTE | 2023-08-08 23:30 | ED.GENADUL_ITS ---
Discharge Plan Disposition Patient Disposition: Home Discharge Details Clinical Impression: Burn of hand, right, second degree Primary Care Provider: Isadora Upton ED Provider: Margarita Hall Home Meds and New Rx's Prescriptions: Continued bupropion HCl 150 mg tablet extended release 24 hr 150 mg PO QAM Qty: 30 5RF Rx Instructions: wants pill pack hydroxyzine HCl 25 mg tablet 25 mg PO TID PRN (Reason: anxiety) Qty: 60 5RF Rx Instructions: wants pill pack trazodone 50 mg tablet 50 mg PO QHS PRN (Reason: sleep) Qty: 30 5RF Rx Instructions: wants pill pack levothyroxine 50 mcg tablet 25 mcg PO DAILY Qty: 45 3RF Rx Instructions: wants pill pack Mirena 20 mcg/24 hours (7 yrs) 52 mg intrauterine device 1 insert intrauterine ONCE Rx Instructions: as a single dose cetirizine 10 mg tablet 10 mg PO DAILY PRN (Reason: allergy symptoms) Qty: 90 3RF ibuprofen 600 mg tablet 600 mg PO Q6H PRN (Reason: pain) Qty: 45 0RF Hold Instructions: Until new prescribed pain medication has completed levothyroxine 25 mcg tablet 25 mcg PO DAILY diclofenac potassium 50 mg tablet 50 mg PO TID PRN (Reason: pain) Qty: 15 0RF cyclobenzaprine 5 mg tablet Discharge Instructions Instructions: Second-Degree Burn (ED) Additional Instructions: Cleanse your hand twice a day with an antibacterial soap such as Dial. Apply the bacitracin in a thin layer and cover the reed with gauze as instructed. Dr. Alcaraz from surgery should call you on Friday to recheck your hand or . Take ibuprofen 600 mg every 6 hours as needed for pain. You should not take diclofenac with this (one or the other is fine). You may also take Tylenol 650 mg every 6 hours as needed for pain. Return to ED for red streaks going into your arm, fever of 100.4 or above, any other concerns. Stand Alone Forms: Work Release Medical Decision Making Patient's hand was cleansed gently with soap and water in emergency department. Bacitracin was applied with dressing between her fourth fingers and over the fingers and thumb. She will follow-up with Dr. Alcaraz from trauma on Friday or Friday; they should call her for an appointment. The patient knows that the reed may further declare themselves and she should not be using her R hand. Medical Records Medical records reviewed: Yes I reviewed the patient's medical records. HPI General Date/Time Provider Initiated Documentation: 08/08/23 23:21 . History of Present Illness described as severe, Quality is described as burning, HPI Narrative: This 33-year-old female patient presents with a chief complaint of reed to the palmar surface of her right hand sustainted at work several hours ago. The patient states she accidentally grabbed the handle of a hot salazar tonight. The patient states that it hurt a lot but has taken a little bit of time before the blisters began to be noticeable on her fingers. She evidently soaked her hand in egg whites and then applied triple antibiotic ointment at home. Her tetanus shot is up-to-date. She is right-hand dominant. She did apply a SA of ice which helped. Related Data Home Medications Medication Instructions Recorded Confirmed ibuprofen 600 mg tablet 600 mg PO Q6H PRN pain #45 tabs 02/10/21 08/08/23 levonorgestrel 21 mcg/24 hours (8 1 insert intrauterine ONCE 12/17/21 08/08/23 yrs) 52 mg intrauterine device (Mirena) cetirizine 10 mg tablet 10 mg PO DAILY PRN allergy 01/14/22 08/08/23 symptoms #90 tabs diclofenac potassium 50 mg tablet 50 mg PO TID PRN pain #15 tabs 06/02/23 08/08/23 bupropion HCl 150 mg 24 hr tablet, 150 mg PO QAM #30 tabs 06/23/23 08/08/23 extended release hydroxyzine HCl 25 mg tablet 25 mg PO TID PRN anxiety #60 tabs 06/23/23 08/08/23 levothyroxine 50 mcg tablet 25 mcg (1/2 x 50 mcg) PO DAILY #45 06/23/23 06/23/23 tabs trazodone 50 mg tablet 50 mg PO QHS PRN sleep #30 tabs 06/23/23 08/08/23 levothyroxine 25 mcg tablet 25 mcg PO DAILY 06/24/23 08/08/23 cyclobenzaprine 5 mg tablet mg 08/08/23 Previous Rx's Medication Instructions Recorded ibuprofen 600 mg tablet 600 mg PO Q6H PRN pain #45 tabs 04/17/21 cetirizine 10 mg tablet 10 mg PO DAILY PRN allergy 01/14/22 symptoms #90 tabs diclofenac potassium 50 mg tablet 50 mg PO TID PRN pain #15 tabs 06/02/23 bupropion HCl 150 mg 24 hr tablet, 150 mg PO QAM #30 tabs 06/23/23 extended release hydroxyzine HCl 25 mg tablet 25 mg PO TID PRN anxiety #60 tabs 06/23/23 levothyroxine 50 mcg tablet 25 mcg (1/2 x 50 mcg) PO DAILY #45 06/23/23 tabs trazodone 50 mg tablet 50 mg PO QHS PRN sleep #30 tabs 06/23/23 Allergies Allergy/AdvReac Type Severity Reaction Status Date / Time No Known Allergies Allergy Verified 08/08/23 23:30 General Stated Complaint: Burn KATHY: 4 PFSH All Active Problems (Updated 08/08/23 @ 23:38 by Margarita Hall MD) Burn of hand, right, second degree (Acute) Hypothyroidism (Chronic) Mild obstructive sleep apnea (Acute ~04/2021) Sleep study 05/25/21 Lumbago (Acute) IUD surveillance (Acute) Obesity (Chronic) ADHD (attention deficit hyperactivity disorder), combined type (Acute) Generalized anxiety disorder (Acute) Major depressive disorder, recurrent episode, unspecified (Acute) Post-traumatic stress disorder (Acute) Marijuana use (Acute ~06/18/21) Is trying to reduce use but has not been able to quit use altogether. Her goal is to quit entirely by the end of Sep 2020. Still smoking 1-2 bowls daily for appetite stimulation and sleep and slowing racing thoughts as of 11/28/2020 Smoker (Acute) Motivated to quit, has switched to vaping, is currently using 0% nicotine. Smoked Cigs for 12 yrs. Quit 06/13/20 Hx gestational diabetes (Acute) Daytime somnolence (Acute) Snoring (Acute) Medical History Anxiety disorder, unspecified Arrested labor GBS (group B Streptococcus carrier), +RV culture, currently Gestational diabetes 11/23/20. Diagnosed 32 weeks Novolin and 4 units at bedtime. Hypothyroid in , antepartum atony of uterus with hemorrhage hemorrhage of vagina Surgical History Status post primary low transverse section 02/07/2021. Dawson Valenzuelalynne víctor Chavezan. Family History Mother Mental health problem reports by mother of multiple diagnoses but the specific diagnoses mother reports are not reliable per [facility]. H/O: hysterectomy Social History Smoking/Tobacco Use Status: Current every day Tobacco Type: e-cigarettes Smokeless tobacco user: other Quit status: considering quitting Second Hand Exposure: No Counseling given: other Smoking risk assessment performed?: Yes Alcohol Intake: never Details: 07/27/20 stopped with knowledge of al Drug use: Daily Substance use type: marijuana Counseling given: Yes (Would like to quit until after the baby is born) Counseling provided: other Household members: significant other and other Details: 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 [employer] Pets and animals: Yes Pets and animals: dog(s) Current gender identity: female What is your relationship status?: living with partner How often do you talk on the phone with friends or family?: three or more times per week Panel score (0-1 are the most socially isolated patients): 2 What type of physical activity do you participate in: walking Frequency: daily Drive intox or ride w/intox rolloff driver: No Working smoke detector in home: Yes Fire extinguisher in home: Yes Carbon monox detector in home: Yes Do you feel safe at home: Yes Do you feel safe in your relationship?: Yes Female Reproductive History Menstrual control method: none History History 2 Para 0 Hx # Term Pregnancies 0 Multiple births 0 Hx # Pregnancies 0 Ectopic pregnancies 0 AB induced 0 Hx Number of Living Children 1 AB spontaneous 1 Past Pregnancies Del. Date GA/Weeks # Preg Succ Route Wgt Sex Labor Lgth Anesth esia Location [facility] 02/07/21 39 No 3369.908 g Male local Mo Clancy DO other Delivery Date: 02/07/21 Last Updated by: Tameka Gregory LPN postoperative uterine atony. Exam Const General: comfortable and no acute distress Nutritional Appearance: well nourished Orientation: alert, awake and oriented x3 HENMT Head: normocephalic and atraumatic Eyes Conjunctivae: conjunctivae normal Neck Neck: supple Resp Effort & Inspection: normal respiratory effort and able to speak in complete sentences Skin General skin exam: other (PWD, reed R hand, see musculoskeletal) Neuro General: patient alert and patient awake Motor: other (FROM R hand) Sensory Exam: no sensory deficits noted (R hand) Extrem Right upper extremity: hand (scattered blisters palmar surface of 5 fingers, worse 2-5, partial thicknes) Other: NVI distal to injury Course Vital Signs Vital signs: Vital Signs Temperature 36.7 C 08/08/23 23:22 Pulse 81 08/08/23 23:22 Respiratory Rate 16 08/08/23 23:22 Blood Pressure 128/82 08/08/23 23:22 Pulse Oximetry 99 08/08/23 23:22 Temperature 36.7 C 08/08/23 23:22 Temperature Source Temporal Artery Scan 08/08/23 23:22 Pulse 81 08/08/23 23:22 Respiratory Rate 16 08/08/23 23:22 Respiratory Effort Normal 08/08/23 23:29 Blood Pressure 128/82 08/08/23 23:22 Blood Pressure Position Sitting 08/08/23 23:22 Pulse Oximetry 99 08/08/23 23:22 Oxygen Delivery Method Room Air 08/08/23 23:22 Oxygen Flow Rate 0 08/08/23 23:22 Pain Level 8 08/08/23 23:22
--- NOTE | 2023-08-08 23:34 | NUR.NOTE ---
Pt placed on care management referral for burn to the right hand. Pt to be seen within 1 week.
--- NOTE | 2023-08-09 01:10 | NUR.NOTE ---
burned hand washed gently with soap and water. bacitracin applied and hand wrapped with guaze. extra bacitracin packets given for home use.. Nursing Note:
== END 2023-08-08 23:53 | disposition home or self-care (01) ==
PROVIDERS: Emergency Provider Emergency Medicine; PCP Nurse Practitioner
DX: T23.251A Burn of second degree of right palm, initial encounter (principal); X19.XXXA Contact with other heat and hot substances, initial encounter
CPT/HCPCS: 16020; 99283

== ENCOUNTER 2023-09-15 20:57 | Emergency (ER) | payer MEDICAID, SELFPAY ==
[2023-09-15 21:03] VITALS: BP 136/71; PULSE 93; RESP 16; TEMP 37.2; O2SAT 96
[2023-09-15 21:09] VITALS: BP 136/71; PULSE 93; RESP 16; TEMP 37.2; O2SAT 96
[2023-09-15] MEDS: Fluorescein STRIPS 100/BOX 1 MG OP (21:20)
[2023-09-15] MEDS: Erythromycin Ophth Oint 3.5 GM TUBE OD (21:22)
--- NOTE | 2023-09-15 21:49 | ED.GENADUL_ITS ---
Discharge Plan Disposition Patient Disposition: Home Discharge Details Clinical Impression: Conjunctivitis Primary Care Provider: Isadora Upton ED Provider: Saranya Stone Home Meds and New Rx's Prescriptions: Continued bupropion HCl 150 mg tablet extended release 24 hr 150 mg PO QAM Qty: 30 5RF Rx Instructions: wants pill pack hydroxyzine HCl 25 mg tablet 25 mg PO TID PRN (Reason: anxiety) Qty: 60 5RF Rx Instructions: wants pill pack trazodone 50 mg tablet 50 mg PO QHS PRN (Reason: sleep) Qty: 30 5RF Rx Instructions: wants pill pack Mirena 20 mcg/24 hours (7 yrs) 52 mg intrauterine device 1 insert intrauterine ONCE Rx Instructions: as a single dose ibuprofen 600 mg tablet 600 mg PO Q6H PRN (Reason: pain) Qty: 45 0RF Hold Instructions: Until new prescribed pain medication has completed levothyroxine 25 mcg tablet 25 mcg PO DAILY diclofenac potassium 50 mg tablet 50 mg PO TID PRN (Reason: pain) Qty: 15 0RF Discharge Instructions Instructions: Conjunctivitis (ED) Additional Instructions: use erythromycin 3 times a day Wash with warm soapy water as this is very contagious If its not improving in the next 4 to 5 days I recommend being reassessed Return with spreading redness, fever, vision change Stand Alone Forms: Work Release Referrals: Isadora Upton, [employer] [Primary Care Provider] - Medical Decision Making This 33-year-old female presents with report of left eye infection, fluorescein stain without obvious lesion, denies any contact lens use Injected conjunctiva, pupils equal round reactive to light and accommodation, no lesions under lids bilaterally Visual acuity, placing nursing documentation, reviewed and within normal limits Encouraged follow-up with ophthalmology with symptoms persisting greater than 48 hours Erythromycin ointment subsided although I suspect this is viral in nature This was also reviewed with patient Work note supplied Return precautions reviewed and patient expressed understanding HPI General Date/Time Provider Initiated Documentation: 09/15/23 21:08 . HPI Narrative: 33-year-old female presenting with left eye redness and discharge. Has had upper respiratory symptoms. Son reportedly has been sick with similar symptoms and had conjunctivitis. Denies any vision change. Related Data Home Medications Medication Instructions Recorded Confirmed ibuprofen 600 mg tablet 600 mg PO Q6H PRN pain #45 tabs 02/10/21 09/15/23 levonorgestrel 21 mcg/24 hours (8 1 insert intrauterine ONCE 12/17/21 09/15/23 yrs) 52 mg intrauterine device (Mirena) diclofenac potassium 50 mg tablet 50 mg PO TID PRN pain #15 tabs 06/02/23 09/15/23 bupropion HCl 150 mg 24 hr tablet, 150 mg PO QAM #30 tabs 06/23/23 09/15/23 extended release hydroxyzine HCl 25 mg tablet 25 mg PO TID PRN anxiety #60 tabs 06/23/23 09/15/23 trazodone 50 mg tablet 50 mg PO QHS PRN sleep #30 tabs 06/23/23 09/15/23 levothyroxine 25 mcg tablet 25 mcg PO DAILY 06/24/23 09/15/23 Previous Rx's Medication Instructions Recorded ibuprofen 600 mg tablet 600 mg PO Q6H PRN pain #45 tabs 02/10/21 diclofenac potassium 50 mg tablet 50 mg PO TID PRN pain #15 tabs 06/02/23 bupropion HCl 150 mg 24 hr tablet, 150 mg PO QAM #30 tabs 06/23/23 extended release hydroxyzine HCl 25 mg tablet 25 mg PO TID PRN anxiety #60 tabs 06/23/23 trazodone 50 mg tablet 50 mg PO QHS PRN sleep #30 tabs 06/23/23 Allergies Allergy/AdvReac Type Severity Reaction Status Date / Time No Known Allergies Allergy Verified 09/15/23 21:06 General Stated Complaint: EyeProblem KATHY: 4 PFSH All Active Problems (Updated 09/15/23 @ 21:22 by KOKO Walters) Conjunctivitis (Acute) Hypothyroidism (Chronic) Mild obstructive sleep apnea (Acute ~04/2021) Sleep study 05/25/21 Lumbago (Acute) IUD surveillance (Acute) Obesity (Chronic) ADHD (attention deficit hyperactivity disorder), combined type (Acute) Generalized anxiety disorder (Acute) Major depressive disorder, recurrent episode, unspecified (Acute) Post-traumatic stress disorder (Acute) Marijuana use (Acute ~06/18/21) Is trying to reduce use but has not been able to quit use altogether. Her goal is to quit entirely by the end of Sep 2020. Still smoking 1-2 bowls daily for appetite stimulation and sleep and slowing racing thoughts as of 11/28/2020 Smoker (Acute) Motivated to quit, has switched to vaping, is currently using 0% nicotine. Smoked Cigs for 12 yrs. Quit 06/13/20 Hx gestational diabetes (Acute) Daytime somnolence (Acute) Snoring (Acute) Medical History atony of uterus with hemorrhage hemorrhage of vagina Arrested labor GBS (group B Streptococcus carrier), +RV culture, currently Gestational diabetes 11/23/20. Diagnosed 32 weeks Novolin and 4 units at bedtime. Hypothyroid in , antepartum Anxiety disorder, unspecified Surgical History Status post primary low transverse section 02/07/2021. Dawson Kwong. Family History Mother Mental health problem reports by mother of multiple diagnoses but the specific diagnoses mother reports are not reliable per Mare. 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 [employer] Pets and animals: Yes Pets and animals: dog(s) Current gender identity: female What is your relationship status?: living with partner How often do you talk on the phone with friends or family?: three or more times per week Panel score (0-1 are the most socially isolated patients): 2 What type of physical activity do you participate in: walking Frequency: daily Drive intox or ride w/intox river driver: No Working smoke detector in home: Yes Fire extinguisher in home: Yes Carbon monox detector in home: Yes Do you feel safe at home: Yes Do you feel safe in your relationship?: Yes Female Reproductive History Menstrual control method: none History History 2 Para 0 Hx # Term Pregnancies 0 Multiple births 0 Hx # Pregnancies 0 Ectopic pregnancies 0 AB induced 0 Hx Number of Living Children 1 AB spontaneous 1 Past Pregnancies Del. Date GA/Weeks # Preg Succ Route Wgt Sex Labor Lgth Anesth esia Location Prov Compl 02/07/21 39 No 3369.908 g Male local Mo torrey lCancy DO other Delivery Date: 02/07/21 Last Updated by: Tameka Gregory LPN postoperative uterine atony. Course Vital Signs Vital signs: Vital Signs Temperature 37.2 C 09/15/23 21:03 Pulse 93 H 09/15/23 21:03 Respiratory Rate 16 09/15/23 21:03 Blood Pressure 136/71 09/15/23 21:03 Pulse Oximetry 96 09/15/23 21:03 Temperature 37.2 C 09/15/23 21:09 Temperature Source Temporal Artery Scan 09/15/23 21:09 Pulse 93 H 09/15/23 21:09 Respiratory Rate 16 09/15/23 21:09 Respiratory Effort Normal, Non-Labored 09/15/23 21:08 Blood Pressure 136/71 09/15/23 21:09 Blood Pressure Position Sitting 09/15/23 21:09 Pulse Oximetry 96 09/15/23 21:09 Oxygen Delivery Method Room Air 09/15/23 21:09 Oxygen Flow Rate 0 09/15/23 21:03 Pain Level 0 09/15/23 21:09
== END 2023-09-15 21:23 | disposition home or self-care (01) ==
PROVIDERS: Emergency Provider Physician Assistant; PCP Nurse Practitioner
DX: H10.12 Acute atopic conjunctivitis, left eye (principal)
CPT/HCPCS: 99283

== ENCOUNTER 2024-06-29 04:47 | Outpatient (CLI) | payer MEDICAID, SELFPAY ==
[2024-06-29 13:03] LABS: TSH (W/Ref FT4) 2.45 uIU/mL (0.36-3.74)
== END 2024-06-29 04:48 | disposition home or self-care (01) ==
LOC: LBO 04:48
PROVIDERS: PCP Nurse Practitioner; Referring Provider Nurse Practitioner; Visit Provider Nurse Practitioner
DX: I10 Essential (primary) hypertension (principal)
CPT/HCPCS: 36415; 84443

== ENCOUNTER 2024-09-23 20:33 | Emergency (ER) | payer MEDICAID, SELFPAY ==
[2024-09-23 20:35] VITALS: BP 121/61; PULSE 76; RESP 16; TEMP 36.8; O2SAT 98
--- NOTE | 2024-09-23 21:00 | DI.RAD_ITS ---
Exam(s) XR HIP RT COMPLETE AP PELVIS EXAM: XR HIP RT COMPLETE AP PELVIS CLINICAL HISTORY: right hip pain for 3 weeks. TECHNIQUE: 2D digital imaging was performed of the right hip. Two images were obtained. AP pelvis a nd lateral right hip views were obtained. COMPARISON: No exams were available for comparison FINDINGS: BONES: No acute fracture is present. No bony destructive lesion is seen. JOINTS: No dislocation present. SOFT TISSUE: Normal. Note is made of an IUD in the pelvis. IMPRESSION: Unremarkable radiographs of the right hip. Unremarkable radiographs of the pelvis. DATA REPOSITORY: RADIATION DOSE DELIVERED:
[2024-09-23] MEDS: Cyclobenzaprine 10 MG TAB PO (21:09)
[2024-09-23] MEDS: Lidocaine 5% Patch 2 PATCH TP (21:09)
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
--- NOTE | 2024-09-23 23:02 | DI.VRAD_ITS ---
PROCEDURE INFORMATION: Exam: XR Right Hip Exam date and time: 09/23/2024 9:23 PM Age: 34 years old Clinical indication: Patient HX: Right hip pain for 3 weeks TECHNIQUE: Imaging protocol: Radiologic exam of the right hip. Views: 2 or 3 views hip with pelvis when performed. COMPARISON: CR XR LUMBAR SPINE AP, LAT 05/19/2021 12:00 PM FINDINGS: Bones/joints: Unremarkable. No acute fracture. Soft tissues: Unremarkable. Organs: IUD within the pelvis. IMPRESSION: No acute process Dictated and Authenticated by: Jessi Adams MD. Ordering:DOC Damon MD
== END 2024-09-23 22:26 | disposition home or self-care (01) ==
PROVIDERS: Emergency Provider Student in an Organized Health Care Education/Training Program; PCP Nurse Practitioner
DX: M25.551 Pain in right hip (principal); S13.4XXA Sprain of ligaments of cervical spine, initial encounter; F32.A Depression, unspecified; F41.9 Anxiety disorder, unspecified; V49.40XA Driver injured in collision with unspecified motor vehicles in traffic accident, initial encounter
CPT/HCPCS: 81025; 99283; 73502; 99284

== ENCOUNTER 2024-10-01 16:10 | Outpatient (CLI) | payer MEDICAID, SELFPAY ==
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
== END 2024-10-01 16:30 ==
LOC: DI 16:13
PROVIDERS: PCP Nurse Practitioner; Visit Provider Nurse Practitioner Family
DX: M54.6 Pain in thoracic spine (principal); M54.2 Cervicalgia; M25.512 Pain in left shoulder
CPT/HCPCS: 72040; 72072; 73030

== ENCOUNTER 2024-12-29 10:43 | Outpatient (REF) | payer MEDICAID, SELFPAY ==
--- NOTE | 2024-12-29 10:30 | PAPFT_PTH ---
PATIENT: Kelly Adams LOC: [facility] U#:[id number] AGE/SX: 34/F ROOM: RE12/29/[address]: Isadora Upton APRN : 1990 BED: DIS: 12/29/2024 SPEC #: [id number] RECD: 12/29/24 18:22 STATUS: ANURAG REKaleigh #: [id number] TORO: 12/29/24 10:[address]: Isadora Upton DEPT: [facility] Cytology RECD BY: Saranya Ruiz Tissues: 1 - CX/ENDOCX FOR PAP SMEARS Procedures: PAP THIN PREP/UVM Screening HPV DNA PROBE Comments: [id number] (HPV 16 & 18/45) (CHLAMYDIA/GC)
[2024-12-30 18:41] LABS: Chlamydia Result Negative (Negative); GC Result Negative (Negative)
== END 2024-12-29 10:44 | disposition home or self-care (01) ==
LOC: LBN 10:43
PROVIDERS: PCP Nurse Practitioner; Visit Provider Nurse Practitioner
DX: Z12.4 Encounter for screening for malignant neoplasm of cervix (principal); Z11.51 Encounter for screening for human papillomavirus (HPV)
CPT/HCPCS: 87491; 87591; 88142; 87624

== ENCOUNTER 2025-02-19 10:08 | Emergency (ER) | payer MEDICAID, SELFPAY ==
[2025-02-19 10:20] VITALS: BP 107/67; PULSE 72; RESP 20; TEMP 36.9; O2SAT 99
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
[2025-02-19] MEDS: Cyclobenzaprine 10 MG TAB PO (11:24)
[2025-02-19] MEDS: Ketorolac 10 MG TAB PO (11:24)
[2025-02-19] MEDS: Lidocaine 5% Patch 1 PATCH TP (11:24)
== END 2025-02-19 12:01 | disposition home or self-care (01) ==
PROVIDERS: Emergency Provider Registered Nurse Emergency; PCP Nurse Practitioner
DX: S39.012A Strain of muscle, fascia and tendon of lower back, initial encounter (principal); F17.290 Nicotine dependence, other tobacco product, uncomplicated; Z97.5 Presence of (intrauterine) contraceptive device; X50.0XXA Overexertion from strenuous movement or load, initial encounter; Y93.89 Activity, other specified; Y92.89 Other specified places as the place of occurrence of the external cause
CPT/HCPCS: 81025; 99284; 72110

== ENCOUNTER 2025-04-01 01:03 | Outpatient (CLI) | payer MEDICAID, SELFPAY ==
[2025-04-01 08:20] LABS: Hemoglobin A1C 5.5 % (<5.7)
[2025-04-01 08:58] LABS: ALT 15 U/L (14-59); AST 17 U/L (15-37); Albumin 4.1 g/dL (3.4-5.0); Alkaline Phosphatase 82 U/L (46-116); Anion Gap 8.9 mmol/L (3-11); BUN 10 mg/dL (7-18); Bilirubin, Total 0.4 mg/dL (0.2-1.0); CO2 28.1 mmol/L (21.0-32.0); CREATININE 1.1 mg/dL (0.55-1.02); Calculated LDL 125 mg/dL (<100); Chloride 103 mmol/L (98-107); Cholesterol 190 mg/dL (<200); Estimated GFR 68.04 (mL/min/1.73m2); Glucose 124 mg/dL (74-106); HDL Cholesterol 55 mg/dL (>or=50); Sodium 140 mmol/L (136-145); TSH (W/Ref FT4) 2.25 uIU/mL (0.36-3.74); Total Protein 7.8 g/dL (6.4-8.2); Triglyceride 51 mg/dL (<150)
[2025-04-01 20:42] LABS: Hepatitis C Ab w Rflx HCV PCR Negative (Negative)
[2025-04-01 20:44] LABS: HIV-1/2 Ag & Ab Screen Negative (Negative)
== END 2025-04-01 01:04 | disposition home or self-care (01) ==
PROVIDERS: PCP Nurse Practitioner; Visit Provider Nurse Practitioner
DX: E03.9 Hypothyroidism, unspecified (principal); Z13.220 Encounter for screening for lipoid disorders; Z11.59 Encounter for screening for other viral diseases; O24.414 Gestational diabetes mellitus in pregnancy, insulin controlled; E66.9 Obesity, unspecified
CPT/HCPCS: 36415; 80053; 80061; 86803; 87389; 83036; 84443